=== PATIENT | female | born 1935 | race Caucasian/White ===

== ENCOUNTER 2019-04-28 11:42 | Inpatient (IN) | payer OTHER ==
--- NOTE | 2019-04-28 12:01 | PDOC ---
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 There was nausea but no vomiting. No diaphoresis. Pain persists but is less severe at present. Review of systems: Denies fever/chills, URI symptoms, sore throat, cough, shortness of breath, abdominal pain, vomiting, diarrhea, visual or focal neurologic symptoms. Remainder of systems reviewed and negative Past medical history: Atrial fibrillation, coronary artery disease with stent greater than 10 years ago. Medications include beta tania and calcium channel tania for rate control. 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 However, recently lost her and has been emotionally upset Family history: Mother with [place] in her late 80s. Brother with diabetes. No other cardiac or metabolic diseases, cancer Physical exam: Alert and oriented well-developed well-nourished cooperative. Chest pain of moderate intensity radiating to the right arm Afebrile, vital signs normal except for irregular heart rate of 94/m. PERRLA, fundi benign, ENT clear Neck supple without bruit mass or nodes Chest clear, full breath sounds bilaterally, no wheezes rales or rhonchi CV S1-S2 normal without murmur or gallop pulses full and symmetric no JVD or edema no bruits. Rate 94 and irregularly irregular Abdomen soft nontender without mass or organomegaly. Extremities no CCE Neurological intact Skin clear, no rash, adequate turgor and wet mucous membranes Impression: Chest pain, suspicious for coronary insufficiency. Atrial fibrillation appears to be controlled. Plan: EKG and enzymes, cardiac monitoring and further evaluation depending on results. Past History - Past Medical History Allergies/Adverse Reactions: Allergies Allergy/AdvReac Type Severity Reaction Status Date / Time No Known Allergies Allergy Verified 04/28/19 11:50 Home Medications: Ambulatory Orders Atenolol [Tenormin -] 50 mg PO DAILY 06/01/12 Calcium [Hi-Irvin] 500 mg PO DAILY 02/27/15 Cyanocobalamin [Vitamin B12 -] 100 mcg PO DAILY 02/27/15 Diltiazem HCl [Cartia Xt] 240 mg PO DAILY 10/26/15 Anemia: No Asthma: Yes Cancer: No Cardiac Disorders: Yes (CAD CARDIAC STENT A-FIB) CVA: No COPD: Yes CHF: No Dementia: No Diabetes: No GI Disorders: Yes (GERD) Disorders: Yes (UTI) HTN: Yes Hypercholesterolemia: No Liver Disease: No Seizures: No Thyroid Disease: No - Surgical History Abdominal Surgery: Yes Appendectomy: Yes Cardiac Surgery: Yes (CARDIAC STENTS) Cholecystectomy: No Lung Surgery: No Neurologic Surgery: No Orthopedic Surgery: Yes (BILATERAL SHOULDER ARTHROSCOPIC AND RIGHT KNEE ARTHROSCOPIC SURGERY) - Suicide/Smoking/Psychosocial Hx Smoking Status: No Smoking History: Former smoker Have you smoked in the past 12 months: No Number of Cigarettes Smoked Daily: 0 If you are a former smoker, when did you quit?: 1985 Cigars Per Day: 0 Hx Alcohol Use: Yes Drug/Substance Use Hx: No Substance Use Type: Alcohol Hx Substance Use Treatment: No Cardiac Specific PMH - Complaint Specific PMHX Pacemaker: No *Physical Exam - Vital Signs Last Vital Signs Temp Pulse Resp BP Pulse Ox 98 F 98 H 20 138/87 100 04/28/19 12:26 04/28/19 13:37 04/28/19 13:37 04/28/19 13:37 04/28/19 13:37 ED Treatment Course - LABORATORY CBC & Chemistry Diagram: 04/28/19 12:11 04/28/19 12:11 - ADDITIONAL ORDERS Additional order review: Laboratory Results 04/28/19 04/28/19 04/28/19 12:11 12:05 12:01 PT with INR 15.9 H INR 1.43 H Sodium 138 Potassium 4.1 Chloride 103 Carbon Dioxide 27 Anion Gap 8 BUN 17.0 Creatinine 0.7 Est GFR (CKD-EPI)AfAm 92.86 Est GFR (CKD-EPI)NonAf 80.12 Random Glucose 111 H Calcium 9.6 Total Bilirubin 1.3 H AST 24 ALT 14 Alkaline Phosphatase 47 Creatine Kinase 258 H Creatine Kinase Index 3.6 CK-MB (CK-2) 9.5 H Troponin I 0.65 H* Total Protein 7.1 Albumin 4.4 04/28/19 12:11 RBC 3.98 MCV 98.0 H MCHC 33.0 RDW 13.7 D MPV 8.0 Neutrophils % 64.4 Lymphocytes % 24.3 Monocytes % 10.5 H Eosinophils % 0.0 Basophils % 0.8 - RADIOLOGY Radiology Studies Ordered: Category Date Time Status CHEST X-RAY PORTABLE* [RAD] Stat Radiology 04/28/19 12:02 Completed - Medications Given in the ED: ED Medications Discontinued Medications Generic Name Dose Route Start Last Admin Trade Name Freq PRN Reason Stop Dose Admin Al Hydroxide/Mg Hydroxide 30 ml 04/28/19 12:28 04/28/19 12:33 Mylanta Suspension - PO 04/28/19 12:29 30 ml ONCE ONE Administration Aspirin 162 mg 04/28/19 12:03 04/28/19 12:16 Asa - PO 04/28/19 12:04 162 mg ONCE ONE Administration Clopidogrel Bisulfate 300 mg 04/28/19 13:32 04/28/19 13:37 Plavix - PO 04/28/19 13:33 300 mg ONCE ONE Administration Lorazepam 0.5 mg 04/28/19 13:22 04/28/19 12:52 Ativan - PO 04/28/19 13:23 0.5 mg ONCE ONE Administration Nitroglycerin 0.4 mg 04/28/19 12:02 04/28/19 12:16 Nitrostat - SL 04/28/19 12:03 0.4 mg ONCE ONE Administration Nitroglycerin 0.5 inch 04/28/19 12:29 04/28/19 12:34 Nitro-Bid 2% Paste - TD 04/28/19 12:30 0.5 inch ONCE ONE Administration Medical Decision Making - Medical Decision Making 04/28/19 14:08 EKG: Atrial fibrillation, rate 94/m, occasionally aberrantly conducted beat. Nonspecific ST-T wave changes. No significant change from prior EKG Troponin is 0.65. CK is also elevated. This is most likely I non-STEMI. Dr. Burnett contacted, who is the patient's primary. Admission will be to Dr. Stewart. contacted for cardiology consultation. Patient stabilized with pending transfer to [facility]. Appears clinically and hemodynamically stable, with no significant pain or other symptoms at present. *DC/Admit/Observation/Transfer Diagnosis at time of Disposition: Acute coronary syndrome - Discharge Dispostion Decision to Admit order: Yes Decision to Admit order Date/Time: Decision to Admit Order Category Date Time Status Decision to Admit to Hospital Routine Admission 04/28/19 13:29 Active - Referrals - Patient Instructions - Post Discharge Activity
[2019-04-28] MEDS ORDERED: NITROGLYCERIN SUBLINGUAL 1/150 0.4 MG TAB SL ONE (12:02)
[2019-04-28] MEDS ORDERED: ASPIRIN 81 MG CHEWABLE TABLETS PO ONE (12:03)
[2019-04-28] MEDS ORDERED: NITROGLYCERIN SUBLINGUAL 1/150 0.4 MG TAB ONE (12:13)
[2019-04-28] MEDS ORDERED: ASPIRIN 81 MG CHEWABLE TABLETS ONE (12:14)
[2019-04-28 12:24] LABS: BASO % 0.8 % (0-2.0); HEMOGLOBIN 12.9 GM/dl (10.7-15.3); LYMPH % 24.3 % (8-40); MCH 32.4 pg (25.7-33.7); MONO % 10.5 % (3.8-10.2); NEUT % 64.4 % (42.8-82.8); PLATELET COUNT 307 K/MM3 (134-434); RBC 3.98 M/mm3 (3.60-5.2); RDW 13.7 % (11.6-15.6); WHITE BLOOD COUNT 7.3 K/mm3 (4.0-10.8)
[2019-04-28] MEDS ORDERED: MAG HYDROX/AL HYDROX/SIMETH -MYLANTA- ORAL SUSPENSION PO ONE (12:28)
[2019-04-28] MEDS ORDERED: NITROGLYCERIN 2% OINTMENT - 1GM PACKET TD ONE ×2 (12:29→12:30)
[2019-04-28] MEDS ORDERED: MAG HYDROX/AL HYDROX/SIMETH 30 ML UNIT-DOSE CUP ONE (12:30)
[2019-04-28 12:33] LABS: ALBUMIN 4.4 g/dl (3.4-5.0); BILIRUBIN,TOTAL 1.3 mg/dl (0.2-1); CALCIUM 9.6 mg/dl (8.5-10); CREATININE 0.7 mg/dl (0.55-1.3); POTASSIUM 4.1 mmol/L (3.5-5.1); TOT PROT 7.1 g/dl (6.4-8.2)
[2019-04-28] MEDS ORDERED: LORazepam 0.5 MG TABLET ONE (12:52)
[2019-04-28] MEDS ORDERED: LORazepam 0.5 MG TABLET PO ONE (13:22)
[2019-04-28 13:27] LABS: INR 1.43 (0.82-1.09); PROTHROMBIN TIME (PATIENT) 15.9 SEC (10.2-13.0)
[2019-04-28] MEDS ORDERED: CLOPIDOGREL BISULFATE 300 MG TABLET PO ONE (13:32)
[2019-04-28] MEDS ORDERED: CLOPIDOGREL BISULFATE 300 MG TABLET ONE (13:35)
--- NOTE | 2019-04-28 14:49 | EKG ---
Test Reason : Blood Pressure : / mmHG Vent. Rate : 094 BPM Atrial Rate : 119 BPM P-R Int : 000 ms QRS Dur : 078 ms QT Int : 388 ms P-R-T Axes : 000 051 004 degrees QTc Int : 485 ms ATRIAL FIBRILLATION WITH PREMATURE VENTRICULAR OR ABERRANTLY CONDUCTED COMPLEXES POSSIBLE ANTERIOR INFARCT , AGE UNDETERMINED ABNORMAL ECG NO PREVIOUS ECGS AVAILABLE Confirmed by CHERELLE BEEBE MD ([id number]) on 04/28/2019 2:49:10 PM Referred By: MD JOHN Confirmed By:CHERELLE BEEBE MD
--- NOTE | 2019-04-28 16:52 | CON.CARD ---
Consult Consult Specialty:: Cardiology Referred by:: Dr. Bassett Reason for Consultation:: Afib, chest pain, +trops - History of Present Illness Chief Complaint: Chest pain History of Present Illness: 83 yo female h/o afib with RVR on coumadin per INR, CAD s/p D1 stent 2005, angina pectoris, hyperlipidemia last saw Dr. Conner of [facility] 04/26/2019 presented with NTG-responsive substernal chest pain with radiation to the right arm and back associated with dyspnea and light-headedness while sitting in the [employer] office. She reports nausea w/o emesis, denies palpitations, true syncope, orthopnea, PND or LE edema. Chest discomfort has since abated. Review of systems: Denies fever/chills, URI symptoms, sore throat, cough, shortness of breath, abdominal pain, vomiting, diarrhea, visual or focal neurologic symptoms. Remainder of systems reviewed and negative Past medical history: Atrial fibrillation, coronary artery disease with stent greater than 10 years ago. Medications include beta tania and calcium channel tania for rate control. 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 Brother with diabetes. No other cardiac or metabolic diseases, cancer - History Source History Provided By: Patient Limitations to Obtaining History: No Limitations - Past Medical History Cardio/Vascular: Yes: AFIB, CAD, HTN - Alcohol/Substance Use Hx Alcohol Use: Yes - Smoking History Smoking history: Former smoker Have you smoked in the past 12 months: No Aproximately how many cigarettes per day: 0 If you are a former smoker, when did you quit?: 1984 Home Medications - Allergies Allergies/Adverse Reactions: Allergies Allergy/AdvReac Type Severity Reaction Status Date / Time No Known Allergies Allergy Verified 04/28/19 11:50 - Home Medications Home Medications: Ambulatory Orders Atenolol [Tenormin -] 50 mg PO DAILY 06/01/12 Calcium [Hi-Irvin] 500 mg PO DAILY 02/27/15 Cyanocobalamin [Vitamin B12 -] 100 mcg PO DAILY 02/27/15 Diltiazem HCl [Cartia Xt] 240 mg PO DAILY 10/26/15 Review of Systems - Review of Systems Cardiovascular: reports: Chest Pain Respiratory: reports: SOB Vital Signs: Vital Signs Temperature 98 F 07/10/19 12:26 Pulse Rate 87 04/28/19 15:24 Respiratory Rate 16 04/28/19 15:24 Blood Pressure 122/88 04/28/19 15:24 O2 Sat by Pulse Oximetry (%) 100 04/28/19 15:24 Constitutional: Yes: No Distress, Calm, Thin Neck: Yes: Supple Respiratory: Yes: Regular, CTA Bilaterally, On Nasal O2 Gastrointestinal: Yes: Normal Bowel Sounds, Soft Cardiovascular: Yes: Pulse Irregular JVD: No Carotid Bruit: No Heart Sounds: Yes: S1, S2 Murmur: Yes: Systolic Murmur, Grade 1 Edema: No - Other Data Labs, Other Data: CBC, BMP 04/28/19 12:11 04/28/19 12:11 INR, PTT INR 1.43 (0.82-1.09) H 04/28/19 12:05 Troponin, BNP 04/28/19 12:01 Troponin I 0.65 H* Troponin, BNP 04/28/19 12:01 Troponin I 0.65 H* Afib @ 94 PRWP PVC c/w previous, PVC now seen Echo: Report Reviewed Ejection Fraction %: LVEF > or = 40 % Imaging - Results Chest X-ray: Report Reviewed (NAD) Problem List - Problems (1) Coronary artery disease Code(s): I25.10 - ATHSCL HEART DISEASE OF [place] CORONARY ARTERY W/O ANG PCTRS Qualifiers: Coronary Disease-Associated Artery/Lesion type: [place] artery [place] vs. transplanted heart: [place] heart Associated angina: with unstable angina Qualified Code(s): I25.110 - Atherosclerotic heart disease of [place] coronary artery with unstable angina pectoris (2) S/P coronary artery stent placement Code(s): Z95.5 - PRESENCE OF CORONARY ANGIOPLASTY IMPLANT AND GRAFT (3) Atrial fibrillation Code(s): I48.91 - UNSPECIFIED ATRIAL FIBRILLATION Qualifiers: Atrial fibrillation type: persistent Qualified Code(s): I48.1 - Persistent atrial fibrillation (4) Subtherapeutic anticoagulation Code(s): Z51.81 - ENCOUNTER FOR THERAPEUTIC DRUG LEVEL MONITORING; Z79.01 - MCC (CURRENT) USE OF ANTICOAGULANTS (5) PVC (premature ventricular contraction) Code(s): I49.3 - VENTRICULAR PREMATURE DEPOLARIZATION Assessment/Plan 08/15/2017 Echo: Normal LV and RV size and fxn, mod ARLYN, normal LA size, mild- mod MR, mod TR RVSP 35 mmHg 06/29/12 Lexiscan: Normal MPI, normal LVEF 59% 1. Chest pain suspect [place]/NSTEMI 2. CAD s/p D1 stent 2005 3. Persistent rate-controlled afib on coumadin with subtherapeutic INR 4. PVC P:1. Cycle cardiac enzyme to document peak 2. F/u echo to assess ventricular and valve fxn 3. Continue Atenolol 50 qd, Cartia XT 240 qd, ASA 81 qd, Plavix 75 qd, Lovenox 60 bid, Lipitor 80 qd 4. To discuss with Dr. Sonia Conner of [facility] regarding C to assess severity of CAD, hold coumadin 5. Thank you for consultative opportunity
[2019-04-28 18:52] VITALS: BMI 23.3
[2019-04-28] MEDS: BUDESONIDE/FORMETEROL FUMARATE 80/4.5 mcg INHALER IH SCH (21:47)
[2019-04-28] MEDS: ENOXAPARIN NA (PORCINE) 60 MG/0.6 ML DISP.SYRIN SQ SCH (21:48)
[2019-04-28] MEDS ORDERED: HEPARIN NA (PORCINE) 5,000 UNITS/ML 1ML VIAL SQ SCH (22:00)
[2019-04-28] MEDS ORDERED: PATIENT'S OWN MEDICATION (NON-FORMULARY) (Mesalamine [Lialda] 1.2 GM) PO SCH (22:00)
[2019-04-28] MEDS ORDERED: ATORVASTATIN CA 80 MG TABLET (FP) PO SCH (22:00)
[2019-04-29 07:42] LABS: BASO % 0.8 % (0-2.0); HEMATOCRIT 37.8 % (32.4-45.2); HEMOGLOBIN 12.4 GM/dL (10.7-15.3); LYMPH % 16.1 % (8-40); MCH 31.8 pg (25.7-33.7); MEAN CELL VOLUME 96.5 fl (80-96); MEAN PLT VOLUME 7.7 fl (7.5-11.1); MONO % 11.5 % (3.8-10.2); NEUT % 71.6 % (42.8-82.8); PLATELET COUNT 293 K/MM3 (134-434); RBC 3.91 M/mm3 (3.60-5.2); RDW 14.2 % (11.6-15.6); WHITE BLOOD COUNT 5.5 K/mm3 (4.0-10.0)
[2019-04-29 07:50] VITALS: BP 121/69; PULSE 86; TEMP 97.5
[2019-04-29 07:57] LABS: ALBUMIN 3.8 g/dl (3.4-5.0); BLOOD UREA NITROGEN 10.5 mg/dL (7-18); CALCIUM 9.3 mg/dL (8.5-10.1); CREATININE 0.6 mg/dL (0.55-1.3); POTASSIUM 4.5 mmol/L (3.5-5.1); TOT PROT 6.7 g/dl (6.4-8.2)
--- NOTE | 2019-04-29 08:41 | PN ---
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 - Current Medication List Current Medications: Active Medications Aspirin (Asa -) 81 mg PO DAILY [facility] Atenolol (Tenormin -) 50 mg PO DAILY [facility] Atorvastatin Calcium (Lipitor -) 80 mg PO HS [facility] Last Admin: 04/28/19 21:48 Dose: 80 mg Budesonide/Formoterol Fumarate (Symbicort 80/4.5mcg -) 2 puff IH BID [facility] Last Admin: 04/28/19 21:47 Dose: 2 inh Clopidogrel Bisulfate (Plavix -) 75 mg PO DAILY [facility] Cyanocobalamin (Vitamin B12 -) 100 mcg PO DAILY [facility] Diltiazem HCl (Cardizem Cd -) 240 mg PO HS [facility] Last Admin: 04/28/19 22:46 Dose: 240 mg Enoxaparin Sodium (Lovenox -) 60 mg SQ BID [facility] Last Admin: 04/28/19 21:48 Dose: 60 mg Non-Formulary Medication (Mesalamine [Lialda]) 1.2 gm PO BID [facility] Pantoprazole Sodium (Protonix -) 40 mg PO DAILY [facility] - Objective Vital Signs: Vital Signs Temperature 97.5 F L 04/29/19 06:00 Pulse Rate 86 04/29/19 06:00 Respiratory Rate 18 04/29/19 06:00 Blood Pressure 121/69 04/29/19 06:00 O2 Sat by Pulse Oximetry (%) 99 04/28/19 21:00 Constitutional: Yes: No Distress, Calm, Thin Neck: Yes: Supple Cardiovascular: Yes: Pulse Irregular Respiratory: Yes: Regular, CTA Bilaterally Gastrointestinal: Yes: Normal Bowel Sounds, Soft Edema: No Labs: CBC, BMP 04/29/19 07:00 04/29/19 07:00 INR, PTT INR 1.43 (0.82-1.09) H 04/28/19 12:05 - ....Imaging EKG: Report Reviewed (ECG: Afib @ [address] changes, c/w previous, PVC no longer seen Tele: Afib with occasional aberrant conduction) Problem List - Problems (1) Coronary artery disease Code(s): I25.10 - ATHSCL HEART DISEASE OF [place] CORONARY ARTERY W/O ANG PCTRS Qualifiers: Coronary Disease-Associated Artery/Lesion type: [place] artery [place] vs. transplanted heart: [place] heart Associated angina: with unstable angina Qualified Code(s): I25.110 - Atherosclerotic heart disease of [place] coronary artery with unstable angina pectoris (2) S/P coronary artery stent placement Code(s): Z95.5 - PRESENCE OF CORONARY ANGIOPLASTY IMPLANT AND GRAFT (3) Atrial fibrillation Code(s): I48.91 - UNSPECIFIED ATRIAL FIBRILLATION Qualifiers: Atrial fibrillation type: persistent Qualified Code(s): I48.1 - Persistent atrial fibrillation (4) Subtherapeutic anticoagulation Code(s): Z51.81 - ENCOUNTER FOR THERAPEUTIC DRUG LEVEL MONITORING; Z79.01 - SUBSORTER (CURRENT) USE OF ANTICOAGULANTS (5) PVC (premature ventricular contraction) Code(s): I49.3 - VENTRICULAR PREMATURE DEPOLARIZATION (6) Non-ST elevation ID (NSTEMI) Code(s): I21.4 - NON-ST ELEVATION (NSTEMI) MYOCARDIAL INFARCTION Assessment/Plan 08/15/2017 Echo: Normal LV and RV size and fxn, mod ARLYN, normal LA size, mild- mod MR, mod TR RVSP 35 mmHg 06/29/12 Lexiscan: Normal MPI, normal LVEF 59% 1. CAD s/p D1 stent 2005 now with [place]/NSTEMI 2. Persistent rate-controlled afib on coumadin with subtherapeutic INR 3. PVC P:1. Cardiac enzymes downtrending 2. F/u echo to assess ventricular and valve fxn 3. Continue Atenolol 50 qd, Cartia XT 240 qd, ASA 81 qd, Plavix 75 qd, Lovenox 60 bid, Lipitor 80 qd 4. F/u with Dr. 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 GI protection
[2019-04-29] MEDS ORDERED: ATENOLOL 50 MG TABLET (FP) PO SCH (10:00)
[2019-04-29] MEDS ORDERED: PANTOPRAZOLE 40 MG TABLET (FP) PO SCH (10:00)
[2019-04-29] MEDS ORDERED: CYANOCOBALAMIN (VITAMIN B-12) 100 MCG TABLET PO SCH (10:00)
[2019-04-29] MEDS ORDERED: CLOPIDOGREL BISULFATE 75 MG TABLET (FP) PO SCH (10:00)
[2019-04-29] MEDS ORDERED: ASPIRIN 81 MG CHEWABLE TABLETS PO SCH (10:00)
[2019-04-29] MEDS: ENOXAPARIN NA (PORCINE) 60 MG/0.6 ML DISP.SYRIN SQ SCH (10:09)
[2019-04-29] MEDS: BUDESONIDE/FORMETEROL FUMARATE 80/4.5 mcg INHALER IH SCH (10:10)
--- NOTE | 2019-04-29 11:51 | HP ---
Admitting History and Physical - Admission Chief Complaint: Chest pain History of Present Illness: 83 yo female h/o afib with RVR on coumadin per INR, CAD s/p D1 stent 2005, angina pectoris, hyperlipidemia last saw Dr. Conner of [facility] 04/26/2019 presented with NTG-responsive substernal chest pain with radiation to the right arm and back associated with dyspnea and light-headedness while sitting in the [employer] office. She reports nausea w/o emesis, denies palpitations, true syncope, orthopnea, PND or LE edema. Chest discomfort has since abated. History Source: Patient, Medical Record Limitations to Obtaining History: No Limitations - Past Medical History Cardiovascular: Yes: AFIB, CAD, HTN ...: No - Smoking History Smoking history: Former smoker Have you smoked in the past 12 months: No Aproximately how many cigarettes per day: 0 If you are a former smoker, when did you quit?: 1984 - Alcohol/Substance Use Hx Alcohol Use: No Home Medications - Allergies Allergies/Adverse Reactions: Allergies Allergy/AdvReac Type Severity Reaction Status Date / Time No Known Allergies Allergy Verified 04/28/19 11:50 - Home Medications Home Medications: Ambulatory Orders Atenolol [Tenormin -] 50 mg PO DAILY 06/01/12 Calcium [Hi-Irvin] 500 mg PO DAILY 02/27/15 Cyanocobalamin [Vitamin B12 -] 100 mcg PO DAILY 02/27/15 Diltiazem HCl [Cartia Xt] 240 mg PO DAILY 10/26/15 Review of Systems - Review of Systems Constitutional: reports: Weakness Eyes: reports: No Symptoms HENT: reports: No Symptoms Neck: reports: No Symptoms Cardiovascular: reports: Chest Pain, Shortness of Breath Respiratory: reports: SOB Gastrointestinal: reports: Nausea Genitourinary: reports: No Symptoms Breasts: reports: No Symptoms Reported Musculoskeletal: reports: Muscle Weakness Integumentary: reports: No Symptoms Neurological: reports: No Symptoms Endocrine: reports: No Symptoms Hematology/Lymphatic: reports: No Symptoms Psychiatric: reports: No Symptoms Physical Examination Vital Signs: Vital Signs Temperature 97.5 F L 04/29/19 06:00 Pulse Rate 86 04/29/19 06:00 Respiratory Rate 18 04/29/19 06:00 Blood Pressure 121/69 04/29/19 06:00 O2 Sat by Pulse Oximetry (%) 99 04/28/19 21:00 Labs: CBC, BMP 04/29/19 07:00 04/29/19 07:00 Imaging - Results Chest X-ray: Report Reviewed Problem List - Problems (1) Hyperlipidemia Assessment/Plan: -Atorvastatin 80 mg po HS -LDL goal <70 mg/dl Code(s): E78.5 - HYPERLIPIDEMIA, UNSPECIFIED (2) Acute coronary syndrome Assessment/Plan: -Seen by ardiology -Tele monitor -Trops peaked and now trending down -On BB -Plavix and lovenox Code(s): I24.9 - ACUTE ISCHEMIC HEART DISEASE, UNSPECIFIED (3) Atrial fibrillation Assessment/Plan: -Warfarin on hold for cardiac cath -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
--- NOTE | 2019-04-29 13:58 | ECHO ---
Name: JENN NUNEZ Exam:Adult Echocardiogram Study Date: 04/29/2019 08:17 AM Age: 83 yrs Reason For Study: ATRIAL FIBRILLATION DEMAND ISCHEMIA Height: 62 in Weight: 128 lb BSA: 1.6 m2 MMode/2D Measurements & Calculations IVSd: 0.86 cm Ao root diam: 2.6 cm LVIDd: 4.2 cm LA dimension: 3.5 cm LVIDs: 2.9 cm LVPWd: 0.73 cm EDV(Teich): 77.6 ml LVOT diam: 2.0 cm ESV(Teich): 33.3 ml Doppler Measurements & Calculations MV E max simone: 94.3 cm/sec Ao V2 max: 115.2 cm/sec MV A max simone: 29.1 cm/sec Ao max P.3 mmHg MV E/A: 3.2 Ao V2 mean: 78.7 cm/sec Ao mean P.8 mmHg Ao V2 VTI: 22.2 cm ZAYDA(I,D): 1.6 cm2 ZAYDA(V,D): 1.6 cm2 LV V1 max P.4 mmHg MR max simone: 491.8 cm/sec LV V1 mean P.71 mmHg MR max P.9 mmHg LV V1 max: 59.0 cm/sec LV V1 mean: 39.2 cm/sec LV V1 VTI: 11.9 cm SV(LVOT): 36.3 ml TR max simone: 241.2 cm/sec TR max P.3 mmHg PI end-d simone: 112.0 cm/sec Med Peak E' Simone: 6.5 cm/sec Med E/e': 14.5 Lat Peak E' Simone: 9.3 cm/sec Lat E/e': 10.2 Procedure A complete two-dimensional transthoracic echocardiogram was performed (2D, M-mode, Doppler and color flow Doppler). Left Ventricle The left ventricular size, thickness and function are normal. The left ventricular ejection fraction is normal. Ejection Fraction = 55-60%. The left ventricular wall motion is normal. Right Ventricle The right ventricle is normal in size and function. Atria Normal left and right atrial size and function. Mitral Valve There is mild mitral regurgitation. Tricuspid Valve There is moderate tricuspid regurgitation. Right ventricular systolic pressure is normal. Aortic Valve No hemodynamically significant valvular aortic stenosis. No aortic regurgitation is present. Pulmonic Valve There is no pulmonic valvular regurgitation. Great Vessels The aortic root is normal size. Pericardium/Pleura There is no pericardial effusion. Interpretation Summary The left ventricular size, thickness and function are normal The right ventricle is normal in size and function. There is mild mitral regurgitation. There is moderate tricuspid regurgitation. MD Bharath Phillips 04/29/2019 01:58 PM
--- NOTE | 2019-04-29 17:01 | EKG ---
Test Reason : Blood Pressure : / mmHG Vent. Rate : 088 BPM Atrial Rate : 081 BPM P-R Int : 000 ms QRS Dur : 080 ms QT Int : 378 ms P-R-T Axes : 000 080 -10 degrees QTc Int : 457 ms ATRIAL FIBRILLATION CANNOT RULE OUT ANTERIOR INFARCT (CITED ON OR BEFORE 28-APR-2019) ABNORMAL ECG WHEN COMPARED WITH ECG OF 28-APR-2019 11:54, NONSPECIFIC T WAVE ABNORMALITY, IMPROVED IN LATERAL LEADS Confirmed by YASHIRA ALVARADO MD ([id number]) on 04/29/2019 5:01:32 PM Referred By: Confirmed By:YASHIRA ALVARADO MD
== END 2019-04-29 14:32 | disposition short-term general hospital (02) | DRG 282 ==
LOC: FER 11:42 → J4W 16:48
PROVIDERS: ADMIT Family Medicine; ATTEND Family Medicine
DX: I21.4 Non-ST elevation (NSTEMI) myocardial infarction (principal); I24.9 Acute ischemic heart disease, unspecified; I49.3 Ventricular premature depolarization; I48.91 Unspecified atrial fibrillation; Z79.01 Long term (current) use of anticoagulants; J44.9 Chronic obstructive pulmonary disease, unspecified; I25.110 Atherosclerotic heart disease of native coronary artery with unstable angina pectoris; I10 Essential (primary) hypertension; E78.5 Hyperlipidemia, unspecified; Z95.5 Presence of coronary angioplasty implant and graft; Z87.891 Personal history of nicotine dependence
CPT/HCPCS: 36415; 71045-TC-FY; 80053; 80061; 82550; 82553; 83036; 83721; 83880; 84443; 84484; 85025; 85610; 93005; 93010; 93306-TC; 99284-25

== ENCOUNTER 2019-09-03 11:57 | Emergency (ER) | payer OTHER ==
[2019-09-03 12:03] VITALS: BP 104/66; PULSE 101; TEMP 97.6; BMI 24.1
--- NOTE | 2019-09-03 12:24 | PDOC ---
History of Present Illness - General Chief Complaint: Back Pain Stated Complaint: back pain Time Seen by Provider: 09/03/19 11:59 History Source: Patient Exam Limitations: No Limitations - History of Present Illness Initial Comments: 09/03/19 12:24 Yaz Reynaga is an 84F with PMH chronic lumbar pain 2/2 OA s/p MRI on Tylenol and steroid injections q4-5 weeks last 4 weeks ago, [place] s/p stent 04/29/19 on Coumadin presenting with acute on chronic back pain. Jono has chronic lumbar pain, takes Tylenol 2/2 CAD and advised to not take NSAIDs. Gets steroid injections with every 4 weeks, last 4 weeks ago, next 2 weeks from today. Ambulates with cane with mild difficulty normally. Yesterday had ECHO which was normal, felt fine. Went to bed, had worse back pain, unable to lie supine. Today has new sharp pain higher up on spine, as well as L neck point stiffness. Has difficulty walking 2/2 pain. Denies numbness/tingling, urinary/fecal incontinence. No N/V/C/D. Past History - Past Medical History Allergies/Adverse Reactions: Allergies Allergy/AdvReac Type Severity Reaction Status Date / Time No Known Allergies Allergy Verified 09/03/19 11:59 Home Medications: Ambulatory Orders Calcium [Hi-Rivin] 500 mg PO DAILY 02/27/15 Cyanocobalamin [Vitamin B12 -] 100 mcg PO DAILY 02/27/15 Acetaminophen [Tylenol -] 500 mg PO TID PRN 09/03/19 Acetaminophen [Tylenol] 650 mg PO TID PRN 09/03/19 Ascorbate Calcium [Vitamin C] 500 mg PO BID 09/03/19 Atorvastatin Ca [Lipitor] 20 mg PO HS 09/03/19 Budesonide/Formeterol Fumarate [SYMBICORT 80/4.5mcg -] 2 inh PO BID 09/03/19 Digoxin [Lanoxin -] 0.125 mg PO DAILY 09/03/19 Melatonin 5 mg PO HS 09/03/19 Metoprolol Succinate [Toprol Xl] 200 mg PO HS 09/03/19 Ramipril [Altace] 2.5 mg PO DAILY 09/03/19 Tramadol HCl 50 mg PO BID PRN #12 tablet MDD 2 09/03/19 Warfarin Sodium [Coumadin] 2 mg PO DAILY 09/03/19 Anemia: No Asthma: Yes Cancer: No Cardiac Disorders: Yes (CAD,CARDIAC STENT, A-FIB) CVA: No COPD: Yes CHF: No Dementia: No Diabetes: No GI Disorders: Yes (GERD) Disorders: Yes (UTI) HTN: Yes Hypercholesterolemia: No Liver Disease: No Seizures: No Thyroid Disease: No - Surgical History Abdominal Surgery: Yes Appendectomy: Yes Cardiac Surgery: Yes (CARDIAC STENTS) Cholecystectomy: No Lung Surgery: No Neurologic Surgery: No Orthopedic Surgery: Yes (BILATERAL SHOULDER ARTHROSCOPIC AND RIGHT KNEE ARTHROSCOPIC SURGERY) - Psycho Social/Smoking Cessation Hx Smoking Status: No Smoking History: Never smoked Have you smoked in the past 12 months: No Number of Cigarettes Smoked Daily: 0 If you are a former smoker, when did you quit?: 1985 Cigars Per Day: 0 Hx Alcohol Use: No Drug/Substance Use Hx: No Substance Use Type: None Hx Substance Use Treatment: No Review of Systems - Review of Systems Able to Perform ROS?: Yes Constitutional: No: Symptoms Reported HEENTM: No: Symptoms Reported Respiratory: No: Symptoms reported Cardiac (ROS): No: Symptoms Reported ABD/GI: No: Symptoms Reported : No: Symptoms Reported Musculoskeletal: Yes: Back Pain, Neck Pain. No: Muscle Weakness, Joint Stiffness Integumentary: No: Symptoms Reported Neurological: No: Headache, Numbness, Paresthesia, Weakness, Unsteady Gait, Dizziness Endocrine: No: Symptoms Reported Hematologic/Lymphatic: No: Symptoms Reported All Other Systems: Reviewed and Negative *Physical Exam - Vital Signs Last Vital Signs Temp Pulse Resp BP Pulse Ox 97.6 F 101 H 18 104/66 98 09/03/19 11:58 09/03/19 11:58 09/03/19 11:58 09/03/19 11:58 09/03/19 11:58 - Physical Exam Comments: 09/05/19 18:23 Midline tenderness to lower thoracic/upper lumbar spine, as well as lumbosacral region, no step-offs or deformities, worse pain with movement only No cervical or upper thoracic tenderness Point tenderness to L neck muscles, full ROM, non-tender R side General Appearance: Yes: Nourished, Appropriately Dressed. No: Apparent Distress HEENT: positive: EOMI, JUDSON, Normal Voice, Symmetrical, Pharynx Normal. negative: Photophobia, Scleral Icterus (R), Scleral Icterus (L) Neck: positive: Trachea midline, Normal Thyroid, Supple. negative: Tender, Lymphadenopathy (R), Lymphadenopathy (L) Respiratory/Chest: positive: Lungs Clear, Normal Breath Sounds. negative: Chest Tender, Respiratory Distress, Accessory Muscle Use, Crackles, Rales, Rhonchi, Stridor, Wheezing, Hyperresonant Cardiovascular: positive: Regular Rhythm, Regular Rate. negative: Murmur Gastrointestinal/Abdominal: positive: Normal Bowel Sounds, Flat, Soft. negative : Tender Musculoskeletal: positive: Normal Inspection, Vertebral Tenderness (lumbar and lower T-spine, no deformities), Other (mild anterior scoliosis noted to spine curvature, no external evidence of injury). negative: CVA Tenderness Extremity: positive: Normal Capillary Refill, Normal Inspection, Normal Range of Motion. negative: Tender Integumentary: positive: Normal Color, Dry, Warm Neurologic: positive: cloth finishing range back tender II-XII NML intact, Fully Oriented, Alert, Normal Mood/ Affect, Normal Response, Motor Strength 5/5 (limb muscle groups strong but limited by pain) Medical Decision Making - Medical Decision Making 09/03/19 12:24 Yaz Reynaga is an 84F with PMH chronic lumbar pain 2/2 OA s/p MRI on Tylenol and steroid injections q4-5 weeks last 4 weeks ago, [place] s/p stent 04/29/19 on Coumadin presenting with acute on chronic back pain. Presentation concerning for spinal fracture or other injury such as disc herniation. Will evaluate with XR throacic and lumbar spine to r/o fracture. No notable neurological deficits or urinary symptoms concerning for spinal pathology. XR thoracic and lumbar spine shows no evidence of acute fracture on preliminary read. Other than pain, patient stable to be discharged home. Trial of flexeril and 650mg acetaminophen, no improvement other than neck less sore. Gave 50mg Ultram with mild improvement, patient would like to go home with Ultram to control pain. Ultram sent to pharmacy, patient will follow-up with Dr. Rapp for further evaluation of pain. Discharge - Discharge Information Problems reviewed: Yes Clinical Impression/Diagnosis: Back pain Qualifiers: Back pain location: low back pain Chronicity: chronic Back pain laterality: midline Sciatica presence: without sciatica Qualified Code(s): M54.5 - Low back pain Condition: Fair Disposition: HOME - Additional Discharge Information Prescriptions: Tramadol HCl 50 mg PO BID PRN #12 tablet MDD 2 PRN Reason: Pain - Follow up/Referral Referrals: Melvin Rapp MD [Primary Care Provider] - - Patient Discharge Instructions Patient Printed Discharge Instructions: Managing Chronic Low Back Pain Additional Instructions: Today you were evaluated for new back pain. Your X-rays do not show any evidence of injury or fracture to your spine. Your pain is likely a worsening of the arthritis pain you already have. We tried to give you a medication called Flexeril, which was not effective for your pain. You did not some mild improvement with Ultram, and so we are sending you home with a prescription for this. Do not drive or perform any activities requiring close attention while taking Ultram. Please follow-up with your primary doctor in the next 3 days for further care. If you experience numbness/tingling in your arms or legs, weakness, inability to control your bowels or bladder, or any other new or concerning symptoms, please return to the emergency room. - Post Discharge Activity
--- NOTE | 2019-09-03 12:36 | PDOC ---
Attending Attestation - Resident Resident Name: Medina Spencerur - ED Attending Attestation I have performed the following: I have examined & evaluated the patient, The case was reviewed & discussed with the resident, I agree w/resident's findings & plan, Exceptions are as noted - HPI HPI: 09/03/19 12:43 84y F hx of chronic back pain, OA, CAD sp PCI on coumadin presents with atraumatic acute on chronic back pain since yesterday. She was in her usual state of health yesterday, running errands, was gonig to bed and noticed severe back pain when she tried to lay down. Pt notse the pain seems to be worse when moving, improved with rest. The pain is a bit higher than her chronic back pain , but also endorses pain in the left shoulder/neck region. Denies any urinary or bowel incontinence, fever/chills, numbness/tingling/weakness, abd pain, n/v. pt being managed by steroid injections by pain management and tylenol but is not helping her pain currently. Physicial exam: general: appears uncomfortable when moving around back: mild ttp to L trapezius, no midline cervical tenderness, mild ttp in the mildline/paraspinal region in the lower thoracic region (~T11-12) and upper lumbar region (L2/L3) ext: no pain in the shoulder or liitations of UE b/l suspect musucular pain no red flags will obtain xray to ro vertebral fx/compression fx tylenol and flexeril for pain - Physicial Exam PE: 09/03/19 18:21 see above - Medical Decision Making 09/03/19 15:37 No acute findings on the patient's x-ray will the patient is currently feeling improved will discharge patient to follow-up with PMD we will give the patient Tramadol rx wit precautions
[2019-09-03] MEDS ORDERED: CYCLOBENZAPRINE HCL 10 MG TABLET (FP) PO ONE (12:53)
[2019-09-03] MEDS ORDERED: ACETAMINOPHEN 325 MG TABLET (FP) PO ONE (12:53)
[2019-09-03] MEDS ORDERED: ACETAMINOPHEN 325 MG TABLET (FP) ONE (12:56)
[2019-09-03] MEDS ORDERED: CYCLOBENZAPRINE HCL 10 MG TABLET (FP) ONE (12:56)
[2019-09-03] MEDS ORDERED: traMADol HCL 50 MG TABLET PO ONE (14:29)
[2019-09-03] MEDS ORDERED: traMADol HCL 50 MG TABLET ONE (14:31)
== END 2019-09-03 15:44 | disposition home or self-care (01) ==
LOC: FER 11:57
DX: M54.5 Low back pain (principal); K21.9 Gastro-esophageal reflux disease without esophagitis; I10 Essential (primary) hypertension; J44.9 Chronic obstructive pulmonary disease, unspecified; J45.909 Unspecified asthma, uncomplicated; I25.10 Atherosclerotic heart disease of native coronary artery without angina pectoris; I48.91 Unspecified atrial fibrillation; Z79.01 Long term (current) use of anticoagulants
CPT/HCPCS: 72070-TC-FY; 72100-TC-FY; 99282-25

== ENCOUNTER 2019-10-14 22:35 | Inpatient (IN) | payer OTHER ==
--- NOTE | 2019-10-14 23:03 | PDOC ---
History of Present Illness - General Chief Complaint: Respiratory Stated Complaint: SOB Time Seen by Provider: 10/14/19 22:39 History Source: Patient, Family Exam Limitations: No Limitations - History of Present Illness Initial Comments: 10/14/19 23:00 This is an 84-year-old female brought in by her daughters for evaluation of shortness of breath x2 days. Patient has a productive sounding cough and is noted to be dyspneic with unable to speak full sentences. Patient denies any fevers but states she has not been taking her temperature either. Patient denies any chest pain, nausea, vomiting, diarrhea. Patient does have a history of coronary artery disease and does have a stent. Patient has a history significant for COPD and a [id number] history but stopped about 30 years ago. Patient took her nebulizer treatment approximately 7 PM this evening. Allergies: as per nursing notes Past Medical History: as per HPI Social history: Lives with family. + smoking history. No alcohol. No illicit drugs. Surgical history: None General: No fevers or chills, no weakness, no weight loss HEENT: No change in vision. No sore throat,. No ear pain CardioVascular: no chest discomfort. + shortness of breath Respiratory:+ cough, + wheezing. Gastrointestinal: no nausea, vomiting, diarrhea or constipation, No rectal bleeding Genitourinary: No dysuria, hematuria, or frequency Musculoskeletal: No joint or muscle pain or swelling Neurologic: No headache, vertigo, dizziness or loss of consciousness Psychiatric: nor depression Skin: No rashes or easy bruising Endocrine: no increased thirst or abnormal weight change Allergic: no skin or latex allergy All other systems reviewed and normal Exam: General: Well-nourished well-developed individual, no acute distress HEENT: Throat: Normal, tonsils normal, no erythema or exudate Neck: Supple, no meningeal signs, no lymphadenopathy Eyes::Pupils equal reactive and round, extraocular motion intact Chest: Nontender to palpation Cardiac: S1-S2 normal, regular rate and rhythm, no murmurs rubs or gallops Respiratory: Lungs decreased breath sounds bilateral with Expiratory wheezing throughout with some use of accessory muscles Abdomen: Soft, nondistended, normal bowel sounds, there is no tenderness on palpation diffusely Extremities: Warm, dry, no cyanosis, clubbing, or edema Skin: No rashes Neuro: Alert and oriented x3, CN II - XII intact, nonfocal exam with normal strength, normal sensation, normal reflexes, normal gait, Psych: Normal mood and affect 10/14/19 23:48 10/15/19 00:02 Assessment and plan: This is an 84-year-old female with COPD exacerbation. Patient given DuoNeb prednisone and an EKG was done however the EKG shows some ST depressions V4 through V6 as well as atrial fibrillation. Did not want to continue to give additional DuoNeb's as these ST depressions are new from prior EKG of April of this year. Patient's troponin was 0.03 Patient does have a mildly elevated white count of 12.2 and a productive sounding cough. However her chest x-ray does not indicate any infiltrate but given her symptoms I will cover her with antibiotics and give her first dose of ceftriaxone Patient will be admitted to an inpatient bed for bronchitis and COPD exacerbation rule out cardiac ischemia Chest x-ray shows COPD but no acute pathology EKG shows atrial fibrillation at a rate of [address] depression with flipped T's V4, 5 and 6. The lateral changes are new from prior EKG of April 2019. Most likely secondary to her difficulty breathing. Past History - Past Medical History Allergies/Adverse Reactions: Allergies Allergy/AdvReac Type Severity Reaction Status Date / Time No Known Allergies Allergy Verified 09/03/19 11:59 Home Medications: Ambulatory Orders Calcium [Hi-Irvin] 500 mg PO DAILY 02/27/15 Cyanocobalamin [Vitamin B12 -] 100 mcg PO DAILY 02/27/15 Acetaminophen [Tylenol] 650 mg PO TID PRN 09/03/19 Ascorbate Calcium [Vitamin C] 500 mg PO BID 09/03/19 Atorvastatin Ca [Lipitor] 20 mg PO HS 09/03/19 Digoxin [Lanoxin -] 0.125 mg PO DAILY 09/03/19 Melatonin 5 mg PO HS 09/03/19 Metoprolol Succinate [Toprol Xl] 200 mg PO HS 09/03/19 Ramipril [Altace] 2.5 mg PO DAILY 09/03/19 Warfarin Sodium [Coumadin] 2 mg PO DAILY 09/03/19 Anemia: No Asthma: Yes Cancer: No Cardiac Disorders: Yes (CAD,CARDIAC STENT, A-FIB) CVA: No COPD: Yes CHF: No Dementia: No Diabetes: No GI Disorders: Yes (GERD) Disorders: Yes (UTI) HTN: Yes Hypercholesterolemia: No Liver Disease: No Seizures: No Thyroid Disease: No - Surgical History Abdominal Surgery: Yes Appendectomy: Yes Cardiac Surgery: Yes (CARDIAC STENTS) Cholecystectomy: No Lung Surgery: No Neurologic Surgery: No Orthopedic Surgery: Yes (BILATERAL SHOULDER ARTHROSCOPIC AND RIGHT KNEE ARTHROSCOPIC SURGERY) - Psycho Social/Smoking Cessation Hx Smoking Status: No Smoking History: Unknown if ever smoked Have you smoked in the past 12 months: No Number of Cigarettes Smoked Daily: 0 If you are a former smoker, when did you quit?: 1985 Cigars Per Day: 0 Information on smoking cessation initiated: No Hx Alcohol Use: No Drug/Substance Use Hx: No Substance Use Type: None Hx Substance Use Treatment: No *Physical Exam - Vital Signs Last Vital Signs Temp Pulse Resp BP Pulse Ox 99.2 F 122 H 18 138/86 93 L 10/14/19 22:54 10/14/19 22:54 10/14/19 22:54 10/14/19 22:54 10/14/19 22:54 ED Treatment Course - LABORATORY CBC & Chemistry Diagram: 10/14/19 23:10 10/14/19 23:10 - RADIOLOGY Radiology Studies Ordered: Category Date Time Status CHEST X-RAY PORTABLE* [RAD] Stat Radiology 10/14/19 22:44 Ordered Discharge - Discharge Information Problems reviewed: Yes Clinical Impression/Diagnosis: COPD exacerbation, Atrial fibrillation, Bronchitis Condition: Stable - Admission Yes - Follow up/Referral Referrals: Melvin Rapp MD [Primary Care Provider] - - Patient Discharge Instructions - Post Discharge Activity
[2019-10-14] MEDS ORDERED: ALBUTEROL SO4 2.5/IPRATROPIUM 0.5 INH SOL 3 ML VIAL.NEB. NEB ONE ×2 (23:14→23:27)
[2019-10-14 23:20] LABS: BASO % 3.6 % (0-2.0); HEMATOCRIT 40.8 % (32.4-45.2); HEMOGLOBIN 13.4 GM/dl (10.7-15.3); MCH 32.3 pg (25.7-33.7); MCHC 32.8 g/dl (32.0-36.0); MEAN CELL VOLUME 98.5 fl (80-96); MEAN PLT VOLUME 7.8 fl (7.5-11.1); MONO % 11.9 % (3.8-10.2); NEUT % 78.5 % (42.8-82.8); PLATELET COUNT 301 K/MM3 (134-434); RBC 4.14 M/mm3 (3.60-5.2); RDW 13.3 % (11.6-15.6); WHITE BLOOD COUNT 12.2 K/mm3 (4.0-10.8)
[2019-10-14] MEDS ORDERED: predniSONE 20 MG TABLET (UD) PO ONE (23:28)
[2019-10-14] MEDS ORDERED: predniSONE 20 MG TABLET (UD) ONE (23:30)
[2019-10-14 23:31] LABS: INR 1.45 (0.82-1.09); PROTHROMBIN TIME (PATIENT) 16.1 SEC (10.2-13.0)
[2019-10-14 23:52] LABS: ALBUMIN 4.1 g/dl (3.4-5.0); BILIRUBIN,TOTAL 1.2 mg/dl (0.2-1); CALCIUM 9.5 mg/dl (8.5-10); CREATININE 0.7 mg/dl (0.55-1.3); POTASSIUM 4.1 mmol/L (3.5-5.1); TOT PROT 7.1 g/dl (6.4-8.2)
[2019-10-15] MEDS ORDERED: ALBUTEROL SO4 0.083% IH SOL 2.5 MG/3 ML VIAL.NEB. NEB PRN (00:43)
[2019-10-15] MEDS ORDERED: ENOXAPARIN NA (PORCINE) 30 MG/0.3 ML DISP.SYRIN SQ SCH (00:45)
[2019-10-15] MEDS ORDERED: CEFTRIAXONE 1,000 MG in DEXTROSE 5%-WATER - 50 ML IVPB STA (00:46)
[2019-10-15] MEDS ORDERED: cefTRIAXone SODIUM 1 GM VIAL ONE (00:50)
[2019-10-15] MEDS ORDERED: ENOXAPARIN NA (PORCINE) 30 MG/0.3 ML DISP.SYRIN SQ ONE (00:50)
[2019-10-15 02:06] VITALS: BMI 22.8
[2019-10-15 08:25] LABS: HEMATOCRIT 40.4 % (32.4-45.2); HEMOGLOBIN 13.3 GM/dl (10.7-15.3); MCH 32.2 pg (25.7-33.7); MCHC 32.9 g/dl (32.0-36.0); MEAN CELL VOLUME 97.8 fl (80-96); MEAN PLT VOLUME 8.8 fl (7.5-11.1); PLATELET COUNT 292 K/MM3 (134-434); RBC 4.13 M/mm3 (3.60-5.2); RDW 13.4 % (11.6-15.6); WHITE BLOOD COUNT 11.3 K/mm3 (4.0-10.8)
[2019-10-15 08:31] LABS: CALCIUM 9.5 mg/dl (8.5-10); CREATININE 0.6 mg/dl (0.55-1.3); POTASSIUM 4.4 mmol/L (3.5-5.1)
--- NOTE | 2019-10-15 09:24 | HP ---
CHIEF COMPLAINT: Shortness of Breath PCP: HISTORY OF PRESENT ILLNESS: This is an 84-year-old h/o afib with RVR on coumadin per INR, CAD s/p D1 stent 2005, angina pectoris, hyperlipidemiafemale brought in by her daughters for evaluation of shortness of breath x2 days. Patient has a productive sounding cough and is noted to be dyspneic with unable to speak full sentences. Patient denies any fevers but states she has not been taking her temperature either. Patient denies any chest pain, nausea, vomiting, diarrhea. Patient does have a history of coronary artery disease and does have a stent. Patient has a history significant for COPD but stopped about 30 years ago. Patient took her nebulizer treatment approximately 7 PM. Stitcher Utility: Dr. Yamilka Conner [phone] Opera Singer: Dr. Rapp ER course was notable for: (1) Chest x-ray shows COPD but no acute pathology (2) EKG shows atrial fibrillation (3)Trop <0.03 Recent Travel: Denies PAST MEDICAL HISTORY: OA AFib GERD Chronic Back Pain PAST SURGICAL HISTORY: Shoulder Scope x2 Right total knee replacement Appendectomy Catactact x2 Social History: Smoking: Pack a day for 37 years. Quit in 1984 Alcohol: 1 drink a night with her sister Drugs: Denies Allergies No Known Allergies Allergy (Verified 09/03/19 11:59) HOME MEDICATIONS: Home Medications Medication Instructions Recorded Calcium [Hi-Irvin] 500 mg PO DAILY 02/27/15 Cyanocobalamin [Vitamin B12 -] 100 mcg PO DAILY 02/27/15 Acetaminophen [Tylenol] 650 mg PO TID PRN 09/03/19 Ascorbate Calcium [Vitamin C] 500 mg PO BID 09/03/19 Atorvastatin Ca [Lipitor] 20 mg PO HS 09/03/19 Digoxin [Lanoxin -] 0.125 mg PO DAILY 09/03/19 Melatonin 5 mg PO HS 09/03/19 Metoprolol Succinate [Toprol Xl] 200 mg PO HS 09/03/19 Ramipril [Altace] 2.5 mg PO DAILY 09/03/19 Warfarin Sodium [Coumadin] 2 mg PO DAILY 09/03/19 REVIEW OF SYSTEMS CONSTITUTIONAL: Absent: fever, chills, diaphoresis, generalized weakness, malaise, weight change HEENT: Absent: rhinorrhea, nasal congestion, throat pain, throat swelling, difficulty swallowing, mouth swelling, ear pain, eye pain, visual changes CARDIOVASCULAR: irregular heart rate Absent: chest pain, syncope, palpitations, lightheadedness, peripheral edema RESPIRATORY: shortness of breath, Productive cough Absent: , orthopnea, wheezing, stridor, hemoptysis GASTROINTESTINAL: Absent: abdominal pain, abdominal distension, nausea, vomiting, diarrhea, constipation, melena, hematochezia GENITOURINARY: Absent: dysuria, frequency, urgency, hesitancy, hematuria, flank pain, genital pain MUSCULOSKELETAL: Chronic back pain Absent: myalgia, arthralgia, joint swelling, neck pain SKIN: Absent: rash, itching, pallor HEMATOLOGIC/IMMUNOLOGIC: Absent: easy bleeding, easy bruising, lymphadenopathy, frequent infections ENDOCRINE: Absent: unexplained weight gain, unexplained weight loss, heat intolerance, cold intolerance NEUROLOGIC: Absent: headache, focal weakness or paresthesias, dizziness, unsteady gait, seizure, mental status changes, bladder or bowel incontinence PSYCHIATRIC: Absent: anxiety, depression, suicidal or homicidal ideation, hallucinations. PHYSICAL EXAMINATION Vital Signs - 24 hr 10/14/19 10/14/19 10/14/19 22:36 22:54 23:50 Temperature 99.2 F Pulse Rate 122 H Pulse Rate [ 110 H Radial] Respiratory 18 Rate Blood Pressure 138/86 138/86 O2 Sat by Pulse 93 L 98 Oximetry (%) 10/15/19 10/15/19 10/15/19 01:55 02:16 06:00 Temperature 98.8 F 98.8 F 98.2 F Pulse Rate 120 H 120 H 114 H Pulse Rate [ Radial] Respiratory 18 18 20 Rate Blood Pressure 127/65 127/65 135/83 O2 Sat by Pulse 97 95 Oximetry (%) 10/15/19 07:51 Temperature Pulse Rate Pulse Rate [ Radial] Respiratory 16 Rate Blood Pressure O2 Sat by Pulse 96 Oximetry (%) GENERAL: Awake, alert, and fully oriented, in no acute distress. HEAD: Normal with no signs of trauma. EYES: Pupils equal, round and reactive to light, extraocular movements intact, sclera anicteric, conjunctiva clear. No lid lag. EARS, NOSE, THROAT: Ears normal, nares patent, oropharynx clear without exudates. Moist mucous membranes. NECK: Normal range of motion, supple without lymphadenopathy, JVD, or masses. LUNGS: Breath sounds equal, clear to auscultation bilaterally. No wheezes, and no crackles. No accessory muscle use. HEART: Irregular Rhythm, S1 and S2 ABDOMEN: Soft, nontender, not distended, normoactive bowel sounds, no guarding, no rebound, no masses. No hepatomegaly or splenomegaly. MUSCULOSKELETAL: Normal range of motion at all joints. No bony deformities or tenderness. No CVA tenderness. UPPER EXTREMITIES: 2+ pulses, warm, well-perfused. No cyanosis. No clubbing. No peripheral edema. LOWER EXTREMITIES: 2+ pulses, warm, well-perfused. No calf tenderness. Mild bilateral peripheral edema. NEUROLOGICAL: Cranial nerves II-XII intact. Normal speech. Gait not accessed PSYCHIATRIC: Cooperative. Good eye contact. Appropriate mood and affect. SKIN: Warm, dry, normal turgor, no rashes or lesions noted, normal capillary refill. Laboratory Results - last 24 hr 10/14/19 10/14/19 10/14/19 23:10 23:10 23:10 WBC 12.2 H RBC 4.14 Hgb 13.4 Hct 40.8 MCV 98.5 H MCH 32.3 MCHC 32.8 RDW 13.3 Plt Count 301 MPV 7.8 Absolute Neuts (auto) 9.6 Neutrophils % 78.5 Lymphocytes % 6.0 L Monocytes % 11.9 H Eosinophils % 0.0 Basophils % 3.6 H PT with INR INR Sodium Potassium Chloride Carbon Dioxide Anion Gap BUN Creatinine Est GFR (CKD-EPI)AfAm Est GFR (CKD-EPI)NonAf Random Glucose Lactic Acid Calcium Total Bilirubin AST ALT Alkaline Phosphatase Creatine Kinase 190 Creatine Kinase Index No Result Required. CK-MB (CK-2) 0.8 Troponin I < 0.03 Total Protein Albumin 10/14/19 10/14/19 10/14/19 23:10 23:10 23:10 WBC RBC Hgb Hct MCV MCH MCHC RDW Plt Count MPV Absolute Neuts (auto) Neutrophils % Lymphocytes % Monocytes % Eosinophils % Basophils % PT with INR 16.1 H INR 1.45 H Sodium 136 Potassium 4.1 Chloride 100 Carbon Dioxide 26 Anion Gap 10 BUN 14.0 Creatinine 0.7 Est GFR (CKD-EPI)AfAm 92.21 Est GFR (CKD-EPI)NonAf 79.56 Random Glucose 175 H Lactic Acid 1.5 Calcium 9.5 Total Bilirubin 1.2 H AST 18 ALT 15 Alkaline Phosphatase 47 Creatine Kinase Creatine Kinase Index CK-MB (CK-2) Troponin I Total Protein 7.1 Albumin 4.1 10/15/19 10/15/19 07:20 07:20 WBC 11.3 H RBC 4.13 Hgb 13.3 Hct 40.4 MCV 97.8 H MCH 32.2 MCHC 32.9 RDW 13.4 Plt Count 292 MPV 8.8 Absolute Neuts (auto) Neutrophils % Lymphocytes % Monocytes % Eosinophils % Basophils % PT with INR INR Sodium 141 Potassium 4.4 Chloride 101 Carbon Dioxide 28 Anion Gap 12 BUN 12.0 Creatinine 0.6 Est GFR (CKD-EPI)AfAm 97.01 Est GFR (CKD-EPI)NonAf 83.70 Random Glucose 164 H Lactic Acid Calcium 9.5 Total Bilirubin AST ALT Alkaline Phosphatase Creatine Kinase Creatine Kinase Index CK-MB (CK-2) Troponin I Total Protein Albumin ASSESSMENT/PLAN: This is an 84-year-old h/o COPD, afib with RVR on coumadin per INR, CAD s/p D1 stent 2005, angina pectoris, GERD, hyperlipidemia female brought in by her daughters for evaluation of shortness of breath x2 days, admitted and being treated for COPD Exacerbation. COPD exacerbation --Chest x-ray COPD but no acute pathology --EKG atrial fibrillation at a rate of [address] depression with flipped T's V4, 5 and 6. The lateral changes are new from prior EKG of April 2019. Most likely secondary to her difficulty breathing --WBC 12.2 (afebrile) --2LNC PRN --Abx-Cetriaxone --Duonebs --Cont Spiriva, Symbicort, Albuterol --Hold on systemic steroids per Pulmonary --Pulmonary Following- Hortencia Atrial fibrillation --On warfarin INR 1.45 Will treat with lovenox 60mg q12 hour and increase Warfarin dose tonight from 2mg to 5mg once and recheck labs in AM. Dose Coumadin daily unitl therapeutic levels are reached --Cont Digoxin 0.125mg PO daily HTN/CAD/HLD --Metoprolol Succ 200mg PO HS --Ramipril 2.5mg PO daily GERD --Protonix 40mg PO Daily --Atorvastatin 20mg PO HS FEN --PO intake --Replenish PRN --Low Sodium diet DVT Prophylaxis --On Lovenox and Warfarin Dispo --Requires inpatient care Visit type - Emergency Visit Emergency Visit: Yes ED Registration Date: 10/15/19 Care time: The patient presented to the Emergency Department on the above date and was hospitalized for further evaluation of their emergent condition. - New Patient This patient is new to me today: Yes Date on this admission: 10/15/19 - Critical Care Critical Care patient: No
[2019-10-15 09:58] LABS: ALBUMIN 3.7 g/dl (3.4-5.0); BILIRUBIN,DIRECT 0.2 mg/dL (0.0-0.2); TOT PROT 6.8 g/dl (6.4-8.2)
[2019-10-15] MEDS ORDERED: PATIENT'S OWN MEDICATION (NON-FORMULARY) (Mesalamine [Lialda] 1.2 GM) PO SCH (10:00)
[2019-10-15] MEDS ORDERED: PATIENT'S OWN MEDICATION (NON-FORMULARY) (Tiotropium Bromide [Spiriva] 18 MCG) IH SCH (10:00)
[2019-10-15] MEDS ORDERED: CALCIUM 500 MG PO SCH (10:00)
[2019-10-15] MEDS: RAMIPRIL 2.5 MG CAPSULE (FP) PO SCH (10:31)
[2019-10-15] MEDS: DIGOXIN 0.125 MG TABLET (FP) PO SCH (10:31)
[2019-10-15] MEDS: ASCORBIC ACID 500 MG TABLET (FP) PO SCH ×2 (10:31→21:20)
[2019-10-15] MEDS: CALCIUM (OYSTER SHELL) 500 MG TABLET (FP) PO SCH (10:36)
[2019-10-15] MEDS: PANTOPRAZOLE 40 MG TABLET (FP) PO SCH (10:36)
[2019-10-15] MEDS: CYANOCOBALAMIN (VITAMIN B-12) 100 MCG TABLET PO SCH (10:37)
[2019-10-15] MEDS: BUDESONIDE/FORMETEROL FUMARATE 80/4.5 mcg INHALER IH SCH ×2 (10:37→21:21)
[2019-10-15] MEDS: TIOTROPIUM BROMIDE 2.5 MCG (SPIRIVA) RESPIMAT INHALER IH SCH (10:37)
[2019-10-15] MEDS ORDERED: PT OWN MED DRAWER 7, Y5N ONE (10:43)
--- NOTE | 2019-10-15 10:54 | CON.PULM ---
Consult Consult Specialty:: PULMONARY Referred by:: DYANA Reason for Consultation:: SOB - History of Present Illness Chief Complaint: COUGH/SPUTUM/SOB History of Present Illness: This is an 84-year-old female brought in by her daughters for evaluation of shortness of breath x2 days. Patient has a productive sounding cough and is noted to be dyspneic and unable to speak full sentences. Patient denies any fevers. Patient denies any chest pain, nausea, vomiting, diarrhea. Patient does have a history of coronary artery disease and does have a stent. Patient has a history significant for COPD and a [id number]-[id number] history but stopped about 30 years ago. Patient took her nebulizer treatment approximately 7 PM this evening. She has a cough productive of green thick sputum. - History Source History Provided By: Patient, Medical Record Limitations to Obtaining History: No Limitations - Past Medical History ARC WELDER: No: Alzheimer's Cardio/Vascular: Yes: AFIB, CAD, HTN Pulmonary: Yes: COPD. No: O2 Dependent Gastrointestinal: No: Ascites Hepatobiliary: No: Cirrhosis Renal/: No: Renal Failure Reproductive: Yes: Postmenopausal ...: No - Alcohol/Substance Use Hx Alcohol Use: No - Smoking History Smoking history: Never smoked Have you smoked in the past 12 months: No Aproximately how many cigarettes per day: 0 If you are a former smoker, when did you quit?: 1984 Home Medications - Allergies Allergies/Adverse Reactions: Allergies Allergy/AdvReac Type Severity Reaction Status Date / Time No Known Allergies Allergy Verified 09/03/19 11:59 - Home Medications Home Medications: Ambulatory Orders Calcium [Hi-Irvin] 500 mg PO DAILY 02/27/15 Cyanocobalamin [Vitamin B12 -] 100 mcg PO DAILY 02/27/15 Acetaminophen [Tylenol] 650 mg PO TID PRN 09/03/19 Ascorbate Calcium [Vitamin C] 500 mg PO BID 09/03/19 Atorvastatin Ca [Lipitor] 20 mg PO HS 09/03/19 Digoxin [Lanoxin -] 0.125 mg PO DAILY 09/03/19 Melatonin 5 mg PO HS 09/03/19 Metoprolol Succinate [Toprol Xl] 200 mg PO HS 09/03/19 Ramipril [Altace] 2.5 mg PO DAILY 09/03/19 Warfarin Sodium [Coumadin] 2 mg PO DAILY 09/03/19 Family Medical History Family History: Unremarkable Review of Systems - Review of Systems Constitutional: reports: Loss of Appetite. denies: Fever HENT: denies: Ear Discharge Neck: denies: Lumps Cardiovascular: denies: Chest Pain Respiratory: reports: Cough, Exercise Intolerance, SOB, SOB on Exertion, Wheezing. denies: Hemoptysis Gastrointestinal: reports: No Symptoms Genitourinary: reports: No Symptoms Physical Exam Vital Sings: Vital Signs Temperature 98.2 F 10/15/19 06:00 Pulse Rate 75 10/15/19 10:31 Respiratory Rate 16 10/15/19 07:51 Blood Pressure 135/83 10/15/19 06:00 O2 Sat by Pulse Oximetry (%) 96 10/15/19 07:51 Constitutional: Yes: Calm Eyes: Yes: EOM Intact HENT: Yes: Normocephalic Neck: Yes: Trachea Midline Cardiovascular: Yes: Tachycardia, Pulse Irregular, S1, S2 Respiratory: Yes: Diminished Gastrointestinal: Yes: Normal Bowel Sounds Edema: No Labs: CBC, BMP 10/15/19 07:20 10/15/19 07:20 Imaging - Results Chest X-ray: Report Reviewed, Image Reviewed Problem List - Problems (1) Acute bronchitis Code(s): J20.9 - ACUTE BRONCHITIS, UNSPECIFIED (2) Atrial fibrillation Code(s): I48.91 - UNSPECIFIED ATRIAL FIBRILLATION Qualifiers: (3) COPD exacerbation Code(s): J44.1 - CHRONIC OBSTRUCTIVE PULMONARY DISEASE W (ACUTE) EXACERBATION (4) Coronary artery disease Code(s): I25.10 - ATHSCL HEART DISEASE OF [place] CORONARY ARTERY W/O ANG PCTRS Qualifiers: Coronary Disease-Associated Artery/Lesion type: [place] artery [place] vs. transplanted heart: [place] heart Associated angina: with unstable angina Qualified Code(s): I25.110 - Atherosclerotic heart disease of [place] coronary artery with unstable angina pectoris (5) Hyperlipidemia Code(s): E78.5 - HYPERLIPIDEMIA, UNSPECIFIED Assessment/Plan CHEST PT/O2/BRONCHODILATORS/IV ANTIBIOTICS SPUTUM C/S, INFLU SCREENING ANTICOAGULATION/CONTINUE HOME MEDS HOLD SYSTEMIC STEROIDS FOR NOW Krystyna BERKOWITZ MD
--- NOTE | 2019-10-15 13:35 | EKG ---
Test Reason : Blood Pressure : / mmHG Vent. Rate : 118 BPM Atrial Rate : 147 BPM P-R Int : 000 ms QRS Dur : 076 ms QT Int : 312 ms P-R-T Axes : 000 064 241 degrees QTc Int : 437 ms ATRIAL FIBRILLATION WITH RAPID VENTRICULAR RESPONSE INCOMPLETE RBBB Confirmed by EFFIE NORRIS MD ([id number]) on 10/15/2019 1:35:17 PM Referred By: SHARONDA SOUSA Confirmed By:EFFIE NORRIS MD
[2019-10-15] MEDS: ENOXAPARIN NA (PORCINE) 60 MG/0.6 ML DISP.SYRIN SQ SCH (16:44)
[2019-10-15] MEDS ORDERED: WARFARIN NA 5 MG TABLET (UD) PO ONE (18:00)
[2019-10-15] MEDS ORDERED: WARFARIN NA 2 MG TABLET (UD) PO SCH (18:00)
[2019-10-15] MEDS: ATORVASTATIN CA 20 MG TABLET (FP) PO SCH (21:20)
[2019-10-15] MEDS: MELATONIN 5 MG TABLETS PO SCH (21:21)
[2019-10-16] MEDS: ENOXAPARIN NA (PORCINE) 60 MG/0.6 ML DISP.SYRIN SQ SCH ×2 (03:50→14:15)
--- NOTE | 2019-10-16 07:41 | PN ---
Progress Note, Physician History of Present Illness: pulmonary alert,feeling better,less congested,less dyspneic - Current Medication List Current Medications: Active Medications Albuterol Sulfate (Ventolin 0.083% Nebulizer Soln -) 1 amp NEB Q6H PRN PRN Reason: SHORT OF BREATH/WHEEZING Ascorbic Acid (Vitamin C -) 500 mg PO BID [facility] Last Admin: 10/15/19 21:20 Dose: 500 mg Atorvastatin Calcium (Lipitor -) 20 mg PO HS [facility] Last Admin: 10/15/19 21:20 Dose: 20 mg Budesonide/Formoterol Fumarate (Symbicort 80/4.5mcg -) 2 puff IH BID [facility] Last Admin: 10/15/19 21:21 Dose: 2 puff Calcium Carbonate (Os-Irvin 500mg -) 500 mg PO DAILY [facility] Last Admin: 10/15/19 10:36 Dose: 500 mg Cyanocobalamin (Vitamin B12 -) 100 mcg PO DAILY [facility] Last Admin: 10/15/19 10:37 Dose: 100 mcg Digoxin (Lanoxin -) 0.125 mg PO DAILY [facility] Last Admin: 10/15/19 10:31 Dose: 0.125 mg Enoxaparin Sodium (Lovenox -) 60 mg SQ Q12H [facility] Last Admin: 10/16/19 03:50 Dose: 60 mg Melatonin (Melatonin) 5 mg PO HS [facility] Last Admin: 10/15/19 21:21 Dose: 5 mg Metoprolol Succinate (Toprol Xl -) 200 mg PO HS [facility] Last Admin: 10/15/19 21:21 Dose: 200 mg Non-Formulary Medication (Mesalamine [Lialda]) 1.2 gm PO BID [facility] Pantoprazole Sodium (Protonix -) 40 mg PO DAILY [facility] Last Admin: 10/15/19 10:36 Dose: 40 mg Ramipril (Altace -) 2.5 mg PO DAILY [facility] Last Admin: 10/15/19 10:31 Dose: 2.5 mg Tiotropium [place] (Spiriva Respimat) 2 puff IH DAILY [facility] Last Admin: 10/15/19 10:37 Dose: Not Given - Objective Vital Signs: Vital Signs Temperature 98.1 F 10/16/19 06:00 Pulse Rate 73 10/16/19 06:00 Respiratory Rate 18 10/16/19 06:00 Blood Pressure 115/62 10/16/19 06:00 O2 Sat by Pulse Oximetry (%) 99 10/16/19 06:00 Constitutional: Yes: Well Nourished, Calm Eyes: Yes: WNL HENT: Yes: WNL Neck: Yes: WNL Cardiovascular: Yes: Pulse Irregular, S1, S2 Respiratory: Yes: Rhonchi (scattered hilary rhonchi) Gastrointestinal: Yes: Normal Bowel Sounds, Soft Extremities: Yes: WNL Edema: No Labs: CBC, BMP Assessment/Plan Problem List - Problems (1) Acute bronchitis Code(s): J20.9 - ACUTE BRONCHITIS, UNSPECIFIED (2) Atrial fibrillation Code(s): I48.91 - UNSPECIFIED ATRIAL FIBRILLATION Qualifiers: (3) COPD exacerbation Code(s): J44.1 - CHRONIC OBSTRUCTIVE PULMONARY DISEASE W (ACUTE) EXACERBATION (4) Coronary artery disease Code(s): I25.10 - ATHSCL HEART DISEASE OF [place] CORONARY ARTERY W/O ANG PCTRS Qualifiers: Coronary Disease-Associated Artery/Lesion type: [place] artery [place] vs. transplanted heart: [place] heart Associated angina: with unstable angina Qualified Code(s): I25.110 - Atherosclerotic heart disease of [place] coronary artery with unstable angina pectoris (5) Hyperlipidemia Code(s): E78.5 - HYPERLIPIDEMIA, UNSPECIFIED Assessment/Plan CHEST PT O2 INHALED BRONCHODILATORS IV ANTIBIOTICS ANTICOAGULATION DR GARCÍA
[2019-10-16 09:02] LABS: INR 1.4 (0.82-1.09); PROTHROMBIN TIME (PATIENT) 15.6 SEC (10.2-13.0)
[2019-10-16 09:05] LABS: ALBUMIN 3.3 g/dl (3.4-5.0); BILIRUBIN,TOTAL 0.9 mg/dl (0.2-1); CALCIUM 9.1 mg/dl (8.5-10); CREATININE 0.6 mg/dl (0.55-1.3); MAGNESIUM 1.6 mg/dL (1.8-2.4); POTASSIUM 3.9 mmol/L (3.5-5.1); TOT PROT 6.2 g/dl (6.4-8.2)
--- NOTE | 2019-10-16 09:41 | PN ---
Physical Exam: SUBJECTIVE: Patient seen and examined at bedside, reports feeling better, coughing out yellow sputum. denies cp, sob, palpitations, abdominal pain, N/V/D or urinary symptoms. OBJECTIVE: Vital Signs Period Temp Pulse Resp BP Sys/[place] Pulse Ox Last 24 Hr 97.5 F-98.9 F 73-115 17-20 103-115/49-62 94-99 GENERAL: The patient is awake, alert, and fully oriented, in no acute distress. HEAD: Normal with no signs of trauma. EYES: PERRL, extraocular movements intact, sclera anicteric, conjunctiva clear. No ptosis. ENT: Ears normal, nares patent, oropharynx clear without exudates, moist mucous membranes. NECK: Trachea midline, full range of motion, supple. LUNGS: Breath sounds equal, clear to auscultation bilaterally, no wheezes, no crackles, no accessory muscle use. HEART: Irregular without murmur, rub or gallop. ABDOMEN: Soft, nontender, nondistended, normoactive bowel sounds, no guarding, no rebound, no hepatosplenomegaly, no masses. EXTREMITIES: 2+ pulses, warm, well-perfused, no edema. NEUROLOGICAL: Cranial nerves II through XII grossly intact. Normal speech, gait not observed. PSYCH: Normal mood, normal affect. SKIN: Warm, dry, normal turgor, no rashes or lesions noted Laboratory Results - last 24 hr 10/15/19 10/15/19 10/16/19 07:20 07:20 07:50 PT with INR INR Sodium Potassium Chloride Carbon Dioxide Anion Gap BUN Creatinine Est GFR (CKD-EPI)AfAm Est GFR (CKD-EPI)NonAf Random Glucose Calcium Magnesium Total Bilirubin 1.0 Direct Bilirubin 0.2 AST 17 ALT 12 L Alkaline Phosphatase 43 L Troponin I < 0.03 < 0.03 Total Protein 6.8 Albumin 3.7 10/16/19 10/16/19 07:50 07:50 PT with INR 15.6 H INR 1.40 H Sodium 141 Potassium 3.9 Chloride 105 Carbon Dioxide 30 Anion Gap 6 L BUN 15.0 Creatinine 0.6 Est GFR (CKD-EPI)AfAm 97.01 Est GFR (CKD-EPI)NonAf 83.70 Random Glucose 104 Calcium 9.1 Magnesium 1.6 L Total Bilirubin 0.9 Direct Bilirubin AST 16 ALT 13 Alkaline Phosphatase 42 L Troponin I Total Protein 6.2 L Albumin 3.3 L Active Medications Generic Name Dose Route Start Last Admin Trade Name Freq PRN Reason Stop Dose Admin Albuterol Sulfate 1 amp 10/15/19 00:43 Ventolin 0.083% Nebulizer Soln - NEB Q6H PRN SHORT OF BREATH/WHEEZING Ascorbic Acid 500 mg 10/15/19 10:00 10/15/19 21:20 Vitamin C - PO 500 mg BID [facility]E Administration Atorvastatin Calcium 20 mg 10/15/19 22:00 10/15/19 21:20 Lipitor - PO 20 mg HS [facility]E Administration Budesonide/Formoterol Fumarate 2 puff 10/15/19 10:00 10/15/19 21:21 Symbicort 80/4.5mcg - IH 2 puff BID [facility] Administration Calcium Carbonate 500 mg 10/15/19 10:00 10/15/19 10:36 Os-Irvin 500mg - PO 500 mg DAILY [facility] Administration Cyanocobalamin 100 mcg 10/15/19 10:00 10/15/19 10:37 Vitamin B12 - PO 100 mcg DAILY [facility] Administration Digoxin 0.125 mg 10/15/19 10:00 10/15/19 10:31 Lanoxin - PO 0.125 mg DAILY [facility] Administration Enoxaparin Sodium 60 mg 10/15/19 16:00 10/16/19 03:50 Lovenox - SQ 60 mg Q12H [facility] Administration Melatonin 5 mg 10/15/19 22:00 10/15/19 21:21 Melatonin PO 5 mg HS [facility] Administration Metoprolol Succinate 200 mg 10/15/19 22:00 10/15/19 21:21 Toprol Xl - PO 200 mg HS [facility] Administration Non-Formulary Medication 1.2 gm 10/15/19 10:00 Mesalamine [Lialda] PO BID [facility] Pantoprazole Sodium 40 mg 10/15/19 10:00 10/15/19 10:36 Protonix - PO 40 mg DAILY [facility] Administration Ramipril 2.5 mg 10/15/19 10:00 10/15/19 10:31 Altace - PO 2.5 mg DAILY [facility] Administration Tiotropium [place] 2 puff 10/15/19 10:00 10/15/19 10:37 Spiriva Respimat IH Not Given DAILY [facility] ASSESSMENT/PLAN: This is an 84-year-old h/o COPD, afib with RVR on coumadin per INR, CAD s/p D1 stent 2005, angina pectoris, GERD, hyperlipidemia female brought in by her daughters for evaluation of shortness of breath x2 days, admitted with COPD Exacerbation. *COPD exacerbation -Chest x-ray COPD but no acute pathology - pul following, rec to HOLD SYSTEMIC STEROIDS FOR NOW - will cont on Inhalers- Spiriva, Symbicort, Albuterol - monitor pulse ox -Abx-Ceftriaxone - will check Influenza and sputum culture * Rapid A- Fib - HR improved -EKG atrial fibrillation at a rate of 118's -Trop neg x3 - INR sub-therapeutic 1.40 -Will treat with Lovenox 60mg q12 hour and will give Coumadin 5mg ( home dose 2mg ) - recheck labs in AM. -Cont Digoxin 0.125mg PO daily - will check Dig level *HTN/CAD/HLD -Metoprolol Succ 200mg PO HS -Ramipril 2.5mg PO daily -Atorvastatin 20mg PO HS *GERD -Protonix 40mg PO Daily * Ulcerative colitis - on Lialda * Low mg - replacement ordered FEN --PO intake --Replenish PRN --Low Sodium diet DVT Prophylaxis --On Lovenox and Warfarin Dispo --Requires inpatient care Visit type - Emergency Visit Emergency Visit: Yes ED Registration Date: 10/15/19 Care time: The patient presented to the Emergency Department on the above date and was hospitalized for further evaluation of their emergent condition. - New Patient This patient is new to me today: Yes Date on this admission: 10/16/19 - Critical Care Critical Care patient: No
[2019-10-16 09:46] LABS: BASO % 0.3 % (0-2.0); HEMATOCRIT 37.7 % (32.4-45.2); HEMOGLOBIN 12.5 GM/dl (10.7-15.3); LYMPH % 14.3 % (8-40); MCH 32.3 pg (25.7-33.7); MCHC 33.2 g/dl (32.0-36.0); MEAN CELL VOLUME 97.1 fl (80-96); MEAN PLT VOLUME 7.4 fl (7.5-11.1); MONO % 13.3 % (3.8-10.2); NEUT % 72.1 % (42.8-82.8); PLATELET COUNT 327 K/MM3 (134-434); RBC 3.89 M/mm3 (3.60-5.2); RDW 13.4 % (11.6-15.6); WHITE BLOOD COUNT 8.4 K/mm3 (4.0-10.8)
[2019-10-16] MEDS ORDERED: MAGNESIUM SULF 50% (8.12 MEQ/2 ML-1 GM VIAL) IVPB ONE (09:46)
[2019-10-16] MEDS: DOCUSATE SODIUM 100 MG CAPSULE (FP) PO SCH (10:41)
[2019-10-16] MEDS: RAMIPRIL 2.5 MG CAPSULE (FP) PO SCH (10:41)
[2019-10-16] MEDS: CYANOCOBALAMIN (VITAMIN B-12) 100 MCG TABLET PO SCH (10:42)
[2019-10-16] MEDS: ASCORBIC ACID 500 MG TABLET (FP) PO SCH ×2 (10:42→21:31)
[2019-10-16] MEDS: TIOTROPIUM BROMIDE 2.5 MCG (SPIRIVA) RESPIMAT INHALER IH SCH (10:42)
[2019-10-16] MEDS: BUDESONIDE/FORMETEROL FUMARATE 80/4.5 mcg INHALER IH SCH (10:42)
[2019-10-16] MEDS: DIGOXIN 0.125 MG TABLET (FP) PO SCH (10:42)
[2019-10-16] MEDS: PANTOPRAZOLE 40 MG TABLET (FP) PO SCH (10:42)
[2019-10-16] MEDS: CALCIUM (OYSTER SHELL) 500 MG TABLET (FP) PO SCH (10:42)
[2019-10-16] MEDS: CEFTRIAXONE 1 GM in DEXTROSE 5%-WATER - 50 ML IVPB SCH (11:00)
[2019-10-16] MEDS ORDERED: WARFARIN NA 5 MG TABLET (UD) PO ONE (18:00)
[2019-10-16] MEDS: MELATONIN 5 MG TABLETS PO SCH (21:31)
[2019-10-16] MEDS: ATORVASTATIN CA 20 MG TABLET (FP) PO SCH (21:31)
[2019-10-16] MEDS: BUDESONIDE/FORMETEROL FUMARATE 160/4.5 mcg INHALER IH SCH (21:32)
[2019-10-17] MEDS: ENOXAPARIN NA (PORCINE) 60 MG/0.6 ML DISP.SYRIN SQ SCH ×2 (03:01→17:05)
--- NOTE | 2019-10-17 07:42 | PN ---
Progress Note, Physician History of Present Illness: pulmonary alert,feeling better,congestion improving,+ moist cough - Current Medication List Current Medications: Active Medications Albuterol Sulfate (Ventolin 0.083% Nebulizer Soln -) 1 amp NEB Q6H PRN PRN Reason: SHORT OF BREATH/WHEEZING Ascorbic Acid (Vitamin C -) 500 mg PO BID [facility] Last Admin: 10/16/19 21:31 Dose: 500 mg Atorvastatin Calcium (Lipitor -) 20 mg PO HS [facility] Last Admin: 10/16/19 21:31 Dose: 20 mg Budesonide/Formoterol Fumarate (Symbicort 160/4.5mcg -) 2 puff IH BID [facility] Last Admin: 10/16/19 21:32 Dose: 2 puff Calcium Carbonate (Os-Irvin 500mg -) 500 mg PO DAILY [facility] Last Admin: 10/16/19 10:42 Dose: 500 mg Cyanocobalamin (Vitamin B12 -) 100 mcg PO DAILY [facility] Last Admin: 10/16/19 10:42 Dose: 100 mcg Digoxin (Lanoxin -) 0.125 mg PO DAILY [facility] Last Admin: 10/16/19 10:42 Dose: 0.125 mg Docusate Sodium (Colace -) 100 mg PO DAILY [facility] Last Admin: 10/16/19 10:41 Dose: 100 mg Enoxaparin Sodium (Lovenox -) 60 mg SQ Q12H [facility] Last Admin: 10/17/19 03:01 Dose: 60 mg Ceftriaxone Sodium 1 gm/ (Dextrose) 50 mls @ 200 mls/hr IVPB DAILY [facility]; Protocol Last Admin: 10/16/19 11:00 Dose: 200 mls/hr Melatonin (Melatonin) 5 mg PO HS [facility] Last Admin: 10/16/19 21:31 Dose: 5 mg Metoprolol Succinate (Toprol Xl -) 200 mg PO HS [facility] Last Admin: 10/16/19 21:31 Dose: 200 mg Non-Formulary Medication (Mesalamine [Lialda]) 1.2 gm PO BID [facility] Pantoprazole Sodium (Protonix -) 40 mg PO DAILY [facility] Last Admin: 10/16/19 10:42 Dose: 40 mg Ramipril (Altace -) 2.5 mg PO DAILY [facility] Last Admin: 10/16/19 10:41 Dose: 2.5 mg Tiotropium [place] (Spiriva Respimat) 2 puff IH DAILY [facility] Last Admin: 10/16/19 10:42 Dose: 2 puff - Objective Vital Signs: Vital Signs Temperature 97.9 F 10/17/19 06:00 Pulse Rate 80 10/17/19 06:00 Respiratory Rate 18 10/17/19 06:00 Blood Pressure 119/71 10/17/19 06:00 O2 Sat by Pulse Oximetry (%) 97 10/17/19 06:00 Constitutional: Yes: Well Nourished, Calm Eyes: Yes: WNL HENT: Yes: WNL Neck: Yes: WNL Cardiovascular: Yes: Pulse Irregular, S1, S2 Respiratory: Yes: Rhonchi (few rhonchi) Gastrointestinal: Yes: Normal Bowel Sounds, Soft Extremities: Yes: WNL Edema: No Labs: Assessment/Plan Problem List - Problems (1) Acute bronchitis Code(s): J20.9 - ACUTE BRONCHITIS, UNSPECIFIED (2) Atrial fibrillation Code(s): I48.91 - UNSPECIFIED ATRIAL FIBRILLATION Qualifiers: (3) COPD exacerbation Code(s): J44.1 - CHRONIC OBSTRUCTIVE PULMONARY DISEASE W (ACUTE) EXACERBATION (4) Coronary artery disease Code(s): I25.10 - ATHSCL HEART DISEASE OF [place] CORONARY ARTERY W/O ANG PCTRS Qualifiers: Coronary Disease-Associated Artery/Lesion type: [place] artery [place] vs. transplanted heart: [place] heart Associated angina: with unstable angina Qualified Code(s): I25.110 - Atherosclerotic heart disease of [place] coronary artery with unstable angina pectoris (5) Hyperlipidemia Code(s): E78.5 - HYPERLIPIDEMIA, UNSPECIFIED Assessment/Plan CHEST PT O2 INHALED BRONCHODILATORS INHALED STEROIDS IV ANTIBIOTICS ANTICOAGULATION DR GARCÍA
[2019-10-17 09:04] LABS: BASO % 0.5 % (0-2.0); HEMATOCRIT 39.9 % (32.4-45.2); HEMOGLOBIN 12.8 GM/dl (10.7-15.3); LYMPH % 22.4 % (8-40); MCH 31.3 pg (25.7-33.7); MEAN CELL VOLUME 97.7 fl (80-96); MEAN PLT VOLUME 8.1 fl (7.5-11.1); MONO % 13.7 % (3.8-10.2); NEUT % 63.4 % (42.8-82.8); PLATELET COUNT 321 K/MM3 (134-434); RBC 4.09 M/mm3 (3.60-5.2); RDW 13.8 % (11.6-15.6); WHITE BLOOD COUNT 7.4 K/mm3 (4.0-10.8)
[2019-10-17 09:48] LABS: INR 1.61 (0.82-1.09); PROTHROMBIN TIME (PATIENT) 17.9 SEC (10.2-13.0)
[2019-10-17] MEDS ORDERED: CEFTRIAXONE 1 G/50 ML PREMIX 50 ML IVPB SCH (10:32)
[2019-10-17] MEDS ORDERED: PT OWN MED DRAWER 7, Y5N ONE (10:32)
[2019-10-17] MEDS: DOCUSATE SODIUM 100 MG CAPSULE (FP) PO SCH (10:38)
[2019-10-17] MEDS: RAMIPRIL 2.5 MG CAPSULE (FP) PO SCH (10:38)
[2019-10-17] MEDS: DIGOXIN 0.125 MG TABLET (FP) PO SCH (10:39)
[2019-10-17] MEDS: CALCIUM (OYSTER SHELL) 500 MG TABLET (FP) PO SCH (10:39)
[2019-10-17] MEDS: CEFTRIAXONE 1 GM in DEXTROSE 5%-WATER - 50 ML IVPB SCH (10:40)
[2019-10-17] MEDS: PANTOPRAZOLE 40 MG TABLET (FP) PO SCH (10:40)
[2019-10-17] MEDS: TIOTROPIUM BROMIDE 2.5 MCG (SPIRIVA) RESPIMAT INHALER IH SCH (10:41)
[2019-10-17] MEDS: BUDESONIDE/FORMETEROL FUMARATE 160/4.5 mcg INHALER IH SCH ×2 (10:42→21:43)
[2019-10-17] MEDS: CYANOCOBALAMIN (VITAMIN B-12) 100 MCG TABLET PO SCH (10:43)
[2019-10-17] MEDS: ASCORBIC ACID 500 MG TABLET (FP) PO SCH ×2 (10:43→21:43)
--- NOTE | 2019-10-17 11:21 | PN ---
Physical Exam: SUBJECTIVE: Patient seen and examined, reports feeling better, denies sob, chest pain INR 1.6 today (received 5 mg coumadin yesterday, will start Coumadin 3 mg tonight) OBJECTIVE: Vital Signs Period Temp Pulse Resp BP Sys/[place] Pulse Ox Last 24 Hr 97.9 F-98.4 F 64-91 17-18 103-127/50-71 94-100 GENERAL: The patient is awake, alert, and fully oriented, in no acute distress. HEAD: Normal with no signs of trauma. EYES: PERRL, extraocular movements intact, sclera anicteric, conjunctiva clear. No ptosis. ENT: Ears normal, nares patent, oropharynx clear without exudates, moist mucous membranes. NECK: Trachea midline, full range of motion, supple. LUNGS: Breath sounds equal, clear to auscultation bilaterally, no wheezes, no crackles, no accessory muscle use. HEART: Regular rate and rhythm, S1, S2 without murmur, rub or gallop. ABDOMEN: Soft, nontender, nondistended, normoactive bowel sounds, no guarding, no rebound, no hepatosplenomegaly, no masses. EXTREMITIES: 2+ pulses, warm, well-perfused, no edema. NEUROLOGICAL: Cranial nerves II through XII grossly intact. Normal speech, gait not observed. PSYCH: Normal mood, normal affect. SKIN: Warm, dry, normal turgor, no rashes or lesions noted Laboratory Results - last 24 hr 10/16/19 10/17/19 10/17/19 07:50 07:45 07:45 WBC 7.4 RBC 4.09 Hgb 12.8 Hct 39.9 MCV 97.7 H MCH 31.3 MCHC 32.0 RDW 13.8 Plt Count 321 MPV 8.1 Absolute Neuts (auto) 4.7 Neutrophils % 63.4 Lymphocytes % 22.4 Monocytes % 13.7 H Eosinophils % 0.0 Basophils % 0.5 PT with INR 17.9 H INR 1.61 H Magnesium Digoxin 0.85 10/17/19 07:45 WBC RBC Hgb Hct MCV MCH MCHC RDW Plt Count MPV Absolute Neuts (auto) Neutrophils % Lymphocytes % Monocytes % Eosinophils % Basophils % PT with INR INR Magnesium 1.9 Digoxin Active Medications Generic Name Dose Route Start Last Admin Trade Name Freq PRN Reason Stop Dose Admin Albuterol Sulfate 1 amp 10/15/19 00:43 Ventolin 0.083% Nebulizer Soln - NEB Q6H PRN SHORT OF BREATH/WHEEZING Ascorbic Acid 500 mg 10/15/19 10:00 10/17/19 10:43 Vitamin C - PO 500 mg BID JOE Administration Atorvastatin Calcium 20 mg 10/15/19 22:00 10/16/19 21:31 Lipitor - PO 20 mg HS [facility]E Administration Budesonide/Formoterol Fumarate 2 puff 10/16/19 22:00 10/17/19 10:42 Symbicort 160/4.5mcg - IH 2 puff BID [facility] Administration Calcium Carbonate 500 mg 10/15/19 10:00 10/17/19 10:39 Os-Irvin 500mg - PO 500 mg DAILY [facility] Administration Cyanocobalamin 100 mcg 10/15/19 10:00 10/17/19 10:43 Vitamin B12 - PO 100 mcg DAILY [facility] Administration Digoxin 0.125 mg 10/15/19 10:00 10/17/19 10:39 Lanoxin - PO 0.125 mg DAILY [facility] Administration Docusate Sodium 100 mg 10/16/19 10:00 10/17/19 10:38 Colace - PO 100 mg DAILY [facility] Administration Enoxaparin Sodium 60 mg 10/15/19 16:00 10/17/19 03:01 Lovenox - SQ 60 mg Q12H [facility] Administration Ceftriaxone Sodium 50 mls @ 100 mls/hr 10/17/19 10:32 Ceftriaxone 1 Gm-D5w Bag IVPB DAILY [facility] Protocol Melatonin 5 mg 10/15/19 22:00 10/16/19 21:31 Melatonin PO 5 mg HS [facility]E Administration Metoprolol Succinate 200 mg 10/15/19 22:00 10/16/19 21:31 Toprol Xl - PO 200 mg HS [facility]E Administration Non-Formulary Medication 1.2 gm 10/15/19 10:00 Mesalamine [Lialda] PO BID [facility] Pantoprazole Sodium 40 mg 10/15/19 10:00 10/17/19 10:40 Protonix - PO 40 mg DAILY [facility] Administration Ramipril 2.5 mg 10/15/19 10:00 10/17/19 10:38 Altace - PO 2.5 mg DAILY [facility] Administration Tiotropium [place] 2 puff 10/15/19 10:00 10/17/19 10:41 Spiriva Respimat IH 2 puff DAILY [facility] Administration Warfarin Sodium 3 mg 10/17/19 18:00 Coumadin - PO DAILY@1800 [facility] ASSESSMENT/PLAN: This is an 84-year-old h/o COPD, afib with RVR on coumadin per INR, CAD s/p D1 stent 2005, angina pectoris, GERD, hyperlipidemia female brought in by her daughters for evaluation of shortness of breath x2 days, admitted with COPD Exacerbation. *COPD exacerbation -Chest x-ray COPD but no acute pathology - pul following, rec to HOLD SYSTEMIC STEROIDS FOR NOW - will cont on Inhalers- Spiriva, Symbicort, Albuterol -Abx-Ceftriaxone * Rapid A- Fib - HR improved -EKG atrial fibrillation at a rate of 118's -Trop neg x3 - INR sub-therapeutic 1.6 today -Will treat with Lovenox 60mg q12 hour, coumadin 3mg qpm -monitor INR daily -Cont Digoxin 0.125mg PO daily -Dig level wnl 0.85 *HTN/CAD/HLD -Metoprolol Succ 200mg PO HS -Ramipril 2.5mg PO daily -Atorvastatin 20mg PO HS *GERD -Protonix 40mg PO Daily * Ulcerative colitis - on Lialda * Low mg - replacement ordered FEN --PO intake --Replenish PRN --Low Sodium diet DVT Prophylaxis --On Lovenox and Warfarin Dispo --Requires inpatient care Visit type - Emergency Visit Emergency Visit: Yes ED Registration Date: 10/15/19 Care time: The patient presented to the Emergency Department on the above date and was hospitalized for further evaluation of their emergent condition. - New Patient This patient is new to me today: No - Critical Care Critical Care patient: No
[2019-10-17] MEDS: ACETAMINOPHEN 325 MG TABLET (FP) PO PRN (13:25)
[2019-10-17] MEDS ORDERED: WARFARIN NA 3 MG TABLET PO SCH (18:00)
[2019-10-17] MEDS: MELATONIN 5 MG TABLETS PO SCH (21:43)
[2019-10-17] MEDS: ATORVASTATIN CA 20 MG TABLET (FP) PO SCH (21:43)
[2019-10-18] MEDS: ENOXAPARIN NA (PORCINE) 60 MG/0.6 ML DISP.SYRIN SQ SCH ×2 (04:07→16:10)
[2019-10-18 08:18] LABS: BASO % 0.4 % (0-2.0); EOS % 0.1 % (0-4.5); HEMATOCRIT 37.1 % (32.4-45.2); HEMOGLOBIN 12.3 GM/dl (10.7-15.3); LYMPH % 18.3 % (8-40); MCHC 33.2 g/dl (32.0-36.0); MEAN CELL VOLUME 96.3 fl (80-96); MEAN PLT VOLUME 8.7 fl (7.5-11.1); MONO % 12.2 % (3.8-10.2); PLATELET COUNT 358 K/MM3 (134-434); RBC 3.85 M/mm3 (3.60-5.2); RDW 13.3 % (11.6-15.6); WHITE BLOOD COUNT 8.7 K/mm3 (4.0-10.8)
[2019-10-18 08:23] LABS: INR 1.88 (0.82-1.09); PROTHROMBIN TIME (PATIENT) 20.8 SEC (10.2-13.0)
[2019-10-18 08:25] LABS: ALBUMIN 3.2 g/dl (3.4-5.0); BILIRUBIN,TOTAL 0.8 mg/dl (0.2-1); CALCIUM 9.2 mg/dl (8.5-10); CREATININE 0.5 mg/dl (0.55-1.3); MAGNESIUM 1.7 mg/dL (1.8-2.4); POTASSIUM 4.1 mmol/L (3.5-5.1); TOT PROT 6.3 g/dl (6.4-8.2)
[2019-10-18] MEDS: PANTOPRAZOLE 40 MG TABLET (FP) PO SCH (09:29)
[2019-10-18] MEDS: CYANOCOBALAMIN (VITAMIN B-12) 100 MCG TABLET PO SCH (09:29)
[2019-10-18] MEDS: DOCUSATE SODIUM 100 MG CAPSULE (FP) PO SCH (09:29)
[2019-10-18] MEDS: CALCIUM (OYSTER SHELL) 500 MG TABLET (FP) PO SCH (09:29)
[2019-10-18] MEDS: RAMIPRIL 2.5 MG CAPSULE (FP) PO SCH (09:29)
[2019-10-18] MEDS: ASCORBIC ACID 500 MG TABLET (FP) PO SCH ×2 (09:30→21:27)
[2019-10-18] MEDS: BUDESONIDE/FORMETEROL FUMARATE 160/4.5 mcg INHALER IH SCH ×2 (10:10→21:27)
[2019-10-18] MEDS: TIOTROPIUM BROMIDE 2.5 MCG (SPIRIVA) RESPIMAT INHALER IH SCH (10:10)
[2019-10-18] MEDS ORDERED: CEFTRIAXONE 1 GM in DEXTROSE 5%-WATER - 50 ML IVPB SCH (13:00)
[2019-10-18] MEDS ORDERED: MAGNESIUM SULF 50% (8.12 MEQ/2 ML-1 GM VIAL) IVPB ONE (13:15)
[2019-10-18] MEDS ORDERED: SODIUM CHLORIDE 1,000 ML IV SCH (16:15)
[2019-10-18] MEDS: DIGOXIN 0.125 MG TABLET (FP) PO SCH (17:29)
[2019-10-18] MEDS: DEXTROSE 5%-0.45% SALINE 1,000 ML IV SCH (17:30)
--- NOTE | 2019-10-18 17:42 | PN ---
Progress Note (short form) - Note Progress Note: PULMONARY SPIKED TEMP TODAY ANOREXIA/WEAKNESS CT CHEST NOTED NO LARGE CONSOLIDATIONS/EFFUSIONS NOTED SEGMENTAL ATELECTASIS NOTED VS LINEAR INFILTRATE LEFT MID LUNG ZONE NOTED PALE/ANICTERIC B/L RHONCHI S1S2 IRREG BS+ NO EDEMA LABS/MEDS/NOTES REVIEWED (1) Acute bronchitis Code(s): J20.9 - ACUTE BRONCHITIS, UNSPECIFIED (2) Atrial fibrillation Code(s): I48.91 - UNSPECIFIED ATRIAL FIBRILLATION Qualifiers: (3) COPD exacerbation Code(s): J44.1 - CHRONIC OBSTRUCTIVE PULMONARY DISEASE W (ACUTE) EXACERBATION (4) Coronary artery disease Code(s): I25.10 - ATHSCL HEART DISEASE OF [place] CORONARY ARTERY W/O ANG PCTRS Qualifiers: Coronary Disease-Associated Artery/Lesion type: [place] artery [place] vs. transplanted heart: [place] heart Associated angina: with unstable angina Qualified Code(s): I25.110 - Atherosclerotic heart disease of [place] coronary artery with unstable angina pectoris (5) Hyperlipidemia Code(s): E78.5 - HYPERLIPIDEMIA, UNSPECIFIED Assessment/Plan CHEST PT/O2/BRONCHODILATORS/IV ANTIBIOTICS/IV FLUIDS SPUTUM C/S, INFLU SCREENING ANTICOAGULATION/CONTINUE HOME MEDS CHECK RESP VIRAL PCR/CRP/LACTIC ACID ID EVALUATION R SHO ÁLVAREZ Problem List - Problems (1) Acute bronchitis Code(s): J20.9 - ACUTE BRONCHITIS, UNSPECIFIED (2) Atrial fibrillation Code(s): I48.91 - UNSPECIFIED ATRIAL FIBRILLATION Qualifiers: (3) COPD exacerbation Code(s): J44.1 - CHRONIC OBSTRUCTIVE PULMONARY DISEASE W (ACUTE) EXACERBATION (4) Coronary artery disease Code(s): I25.10 - ATHSCL HEART DISEASE OF [place] CORONARY ARTERY W/O ANG PCTRS Qualifiers: Coronary Disease-Associated Artery/Lesion type: [place] artery [place] vs. transplanted heart: [place] heart Associated angina: with unstable angina Qualified Code(s): I25.110 - Atherosclerotic heart disease of [place] coronary artery with unstable angina pectoris (5) Hyperlipidemia Code(s): E78.5 - HYPERLIPIDEMIA, UNSPECIFIED
[2019-10-18] MEDS ORDERED: ACETAMINOPHEN 1000 MG/100 ML VIAL (NON FORMULARY) IVPB PRN (17:43)
[2019-10-18] MEDS ORDERED: DOXYCYCLINE HYCLATE 100 MG VIAL ONE (17:50)
[2019-10-18] MEDS ORDERED: DEXTROSE 5%-WATER 100 ML IVPB ONE (17:51)
[2019-10-18] MEDS ORDERED: DOXYCYCLINE INJECTION 100 MG in DEXTROSE 5%-WATER 100 ML IVPB ONE (18:00)
[2019-10-18] MEDS: WARFARIN NA 5 MG TABLET (UD) PO SCH (18:02)
--- NOTE | 2019-10-18 19:32 | PN ---
Documentation entered by Britta Delacruz SCRIBE, acting as scribe for Michelle Thomas NP. Physical Exam: SUBJECTIVE: Patient seen and examined. Feels worse today, body aches, generalized weakness, and SOB. OBJECTIVE: Vital Signs Period Temp Pulse Resp BP Sys/[place] Pulse Ox Last 24 Hr 97.6 F-98.4 F 64-98 16-18 104-120/48-61 94-100 GENERAL: A&Ox3. Lethargic, ill-appearing. LUNGS: Diffuse rhonchi. HEART: Irregular rate and rhythm, S1, S2 ABDOMEN: Soft, nontender, nondistended. EXTREMITIES: 2+ pulses, warm, well-perfused, no edema. NEUROLOGICAL: Cranial nerves II through XII grossly intact. Normal speech, gait not observed. Laboratory Results - last 24 hr 10/17/19 10/17/19 10/17/19 07:45 07:45 07:45 WBC 7.4 RBC 4.09 Hgb 12.8 Hct 39.9 MCV 97.7 H MCH 31.3 MCHC 32.0 RDW 13.8 Plt Count 321 MPV 8.1 Absolute Neuts (auto) 4.7 Neutrophils % 63.4 Lymphocytes % 22.4 Monocytes % 13.7 H Eosinophils % 0.0 Basophils % 0.5 PT with INR 17.9 H INR 1.61 H Sodium Potassium Chloride Carbon Dioxide Anion Gap BUN Creatinine Est GFR (CKD-EPI)AfAm Est GFR (CKD-EPI)NonAf Random Glucose Calcium Magnesium 1.9 Total Bilirubin AST ALT Alkaline Phosphatase Total Protein Albumin 10/18/19 10/18/19 10/18/19 07:22 07:22 07:22 WBC 8.7 RBC 3.85 Hgb 12.3 Hct 37.1 MCV 96.3 H MCH 32.0 MCHC 33.2 RDW 13.3 Plt Count 358 MPV 8.7 Absolute Neuts (auto) 6.0 Neutrophils % 69.0 Lymphocytes % 18.3 Monocytes % 12.2 H Eosinophils % 0.1 Basophils % 0.4 PT with INR 20.8 H INR 1.88 H Sodium 139 Potassium 4.1 Chloride 103 Carbon Dioxide 28 Anion Gap 8 BUN 11.0 Creatinine 0.5 L Est GFR (CKD-EPI)AfAm 103.01 Est GFR (CKD-EPI)NonAf 88.88 Random Glucose 101 Calcium 9.2 Magnesium 1.7 L Total Bilirubin 0.8 AST 16 ALT 13 Alkaline Phosphatase 42 L Total Protein 6.3 L Albumin 3.2 L Active Medications Generic Name Dose Route Start Last Admin Trade Name Constanza PRN Reason Stop Dose Admin Acetaminophen 650 mg 10/17/19 12:09 10/17/19 13:25 Tylenol - PO 650 mg Q4H PRN Administration PAIN LEVEL 4 - 6 Albuterol Sulfate 1 amp 10/15/19 00:43 Ventolin 0.083% Nebulizer Soln - NEB Q6H PRN SHORT OF BREATH/WHEEZING Ascorbic Acid 500 mg 10/15/19 10:00 10/17/19 21:43 Vitamin C - PO 500 mg BID JOE Administration Atorvastatin Calcium 20 mg 10/15/19 22:00 10/17/19 21:43 Lipitor - PO 20 mg HS JOE Administration Budesonide/Formoterol Fumarate 2 puff 10/16/19 22:00 10/17/19 21:43 Symbicort 160/4.5mcg - IH 2 puff BID JOE Administration Calcium Carbonate 500 mg 10/15/19 10:00 10/17/19 10:39 Os-Irvin 500mg - PO 500 mg DAILY JOE Administration Cyanocobalamin 100 mcg 10/15/19 10:00 10/17/19 10:43 Vitamin B12 - PO 100 mcg DAILY JOE Administration Digoxin 0.125 mg 10/15/19 10:00 10/17/19 10:39 Lanoxin - PO 0.125 mg DAILY JOE Administration Docusate Sodium 100 mg 10/16/19 10:00 10/17/19 10:38 Colace - PO 100 mg DAILY JOE Administration Enoxaparin Sodium 60 mg 10/15/19 16:00 10/18/19 04:07 Lovenox - SQ 60 mg Q12H JOE Administration Ceftriaxone Sodium 50 mls @ 100 mls/hr 10/17/19 10:32 Ceftriaxone 1 Gm-D5w Bag IVPB DAILY JOE Protocol Melatonin 5 mg 10/15/19 22:00 10/17/19 21:43 Melatonin PO 5 mg HS JOE Administration Metoprolol Succinate 200 mg 10/15/19 22:00 10/17/19 21:43 Toprol Xl - PO 200 mg HS JOE Administration Non-Formulary Medication 1.2 gm 10/15/19 10:00 Mesalamine [Lialda] PO BID JOE Pantoprazole Sodium 40 mg 10/15/19 10:00 10/17/19 10:40 Protonix - PO 40 mg DAILY JOE Administration Ramipril 2.5 mg 10/15/19 10:00 10/17/19 10:38 Altace - PO 2.5 mg DAILY JOE Administration Tiotropium [place] 2 puff 10/15/19 10:00 10/17/19 10:41 Spiriva Respimat IH 2 puff DAILY JOE Administration Warfarin Sodium 3 mg 10/17/19 18:00 10/17/19 17:40 Coumadin - PO 3 mg DAILY@1800 JOE Administration ASSESSMENT/PLAN: This is an 84 year-old female with a PMH significant for HTN, HLD, CAD s/p stent 2005, afib on coumadin, and OA with chronic back pain. Admitted for SOB secondary to possible COPD exacerbation. Spiked fever today. Sepsis secondary to community acquired pneumonia Chronic COPD --fever spike today 101.3, p110, lethargic, body aches, cough; lactic acid pending --CT chest: infiltrates within the lingula and in the RUL --continue ceftriaxone (day #4), start azithro (day #1) (monitor for dig toxicity - dig level wnl on 10/16, repeat on 10/20) --duonebs q6h scheduled --continue Symbicort, spiriva --IV fluids; will not fluid resuscitate according to goal-directed therapy guidelines due to co-morbidities --titrate SpO2 >95% Mediastinal opacity --5.4 x 4 x 2cm oblong-shaped anterior mediastinal opacity, soft tissue lesion v. cyst with internal debris --will try to get previous CT imaging for comparison --radiologist suggests pulmonary input in regards to appropriate follow-up --pulmonary following Atrial fibrillation with RVR --rate to 120 on admission, better controlled for past few days, back to 110 today but possibly due to fever spike --continue Toprol XL, digoxin (monitor for dig toxicity while on macrolide - dig level wnl on 10/16, repeat on 10/20) --duonebs q6h scheduled --INR 1.45 on admission, today 1.88, dose coumadin 5mg tonight; continue lovexox 1mg/kg BID until INR 2-3 ST changes --ST depressions II, III, AVF, V4, V5, V6 --troponins neg x 3 --repeat ECG --telemetry monitoring --cardiology consult Hypertension --normotensive to borderline low --continue ToprolXL, hold Ramipril due to sepsis Hyperlipidemia --continue Lipitor GERD --protonix Ulcerative colitis --continue mesalamine 1.2g BID - patient's own med Hypomagnesemia --replete FEN --Fluids: D51/2@ 75mL/hr --Electrolytes: replete as indicated --Nutrition: low sodium Physical therapy DVT Prophylaxis: on Lovenox bridging warfarin Dispo: continues to require inpatient care. Full code. Visit type - Emergency Visit Emergency Visit: Yes ED Registration Date: 10/15/19 Care time: The patient presented to the Emergency Department on the above date and was hospitalized for further evaluation of their emergent condition. - New Patient This patient is new to me today: Yes Date on this admission: 10/18/19 - Critical Care Critical Care patient: Yes Total Critical Care Time (in minutes): 60 Critical Care Statement: The care of this patient involved high complexity decision making to prevent further life threatening deterioration of the patient 's condition and/or to evaluate & treat vital organ system(s) failure or risk of failure. Michelle Thomas NP: This documentation has been prepared by the Jayme suero Maria, SCRIBE, under my direction and personally reviewed by me in its entirety. I confirm that the documentation accurately reflects all work, treatment, procedures, and medical decision making performed by me.
[2019-10-18] MEDS: ALBUTEROL SO4 2.5/IPRATROPIUM 0.5 INH SOL 3 ML VIAL.NEB. NEB SCH (20:06)
[2019-10-18] MEDS: ATORVASTATIN CA 20 MG TABLET (FP) PO SCH (21:26)
[2019-10-18] MEDS: MELATONIN 5 MG TABLETS PO SCH (21:26)
[2019-10-18] MEDS: AZITHROMYCIN IVPB 500 MG/250 ML BAG IVPB SCH (21:26)
[2019-10-18] MEDS ORDERED: DOXYCYCLINE INJECTION 100 MG in DEXTROSE 5%-WATER - 100 ML IVPB SCH (22:00)
[2019-10-19] MEDS: ENOXAPARIN NA (PORCINE) 60 MG/0.6 ML DISP.SYRIN SQ SCH (04:00)
[2019-10-19 08:03] LABS: BASO % 0.4 % (0-2.0); HEMATOCRIT 37.3 % (32.4-45.2); HEMOGLOBIN 12.2 GM/dl (10.7-15.3); LYMPH % 14.4 % (8-40); MCH 31.6 pg (25.7-33.7); MCHC 32.8 g/dl (32.0-36.0); MEAN CELL VOLUME 96.5 fl (80-96); MEAN PLT VOLUME 8.2 fl (7.5-11.1); MONO % 12.7 % (3.8-10.2); NEUT % 72.5 % (42.8-82.8); PLATELET COUNT 350 K/MM3 (134-434); RBC 3.87 M/mm3 (3.60-5.2); WHITE BLOOD COUNT 9.6 K/mm3 (4.0-10.8)
[2019-10-19 08:16] LABS: ALBUMIN 3.1 g/dl (3.4-5.0); CALCIUM 8.9 mg/dl (8.5-10); CREATININE 0.5 mg/dl (0.55-1.3); MAGNESIUM 1.5 mg/dL (1.8-2.4); POTASSIUM 3.8 mmol/L (3.5-5.1); TOT PROT 6.2 g/dl (6.4-8.2)
[2019-10-19] MEDS: ALBUTEROL SO4 2.5/IPRATROPIUM 0.5 INH SOL 3 ML VIAL.NEB. NEB SCH ×3 (08:25→21:29)
[2019-10-19 08:35] LABS: INR 2.22 (0.82-1.09); PROTHROMBIN TIME (PATIENT) 24.5 SEC (10.2-13.0)
[2019-10-19] MEDS: CEFTRIAXONE 1 GM in DEXTROSE 5%-WATER - 50 ML IVPB SCH (09:00)
--- NOTE | 2019-10-19 09:47 | PN ---
Progress Note (short form) - Note Progress Note: PULMONARY SUBJECTIVE IMPROVEMENT VSS/AFEBRILE ANOREXIA/WEAKNESS LESS CT CHEST :NOTED NO LARGE CONSOLIDATIONS/EFFUSIONS NOTED SEGMENTAL ATELECTASIS NOTED VS LINEAR INFILTRATE LEFT MID LUNG ZONE NOTED PALE/ANICTERIC B/L RHONCHI S1S2 IRREG BS+ NO EDEMA LABS/MEDS/NOTES REVIEWED PCR VIRAL SEROLOGY PENDING (1) Acute bronchitis Code(s): J20.9 - ACUTE BRONCHITIS, UNSPECIFIED (2) Atrial fibrillation Code(s): I48.91 - UNSPECIFIED ATRIAL FIBRILLATION Qualifiers: (3) COPD exacerbation Code(s): J44.1 - CHRONIC OBSTRUCTIVE PULMONARY DISEASE W (ACUTE) EXACERBATION (4) Coronary artery disease Code(s): I25.10 - ATHSCL HEART DISEASE OF [place] CORONARY ARTERY W/O ANG PCTRS Qualifiers: Coronary Disease-Associated Artery/Lesion type: [place] artery [place] vs. transplanted heart: [place] heart Associated angina: with unstable angina Qualified Code(s): I25.110 - Atherosclerotic heart disease of [place] coronary artery with unstable angina pectoris (5) Hyperlipidemia Code(s): E78.5 - HYPERLIPIDEMIA, UNSPECIFIED Assessment/Plan CHEST PT/O2/BRONCHODILATORS/IV ANTIBIOTICS/IV FLUIDS SPUTUM C/S, INFLU SCREENING ANTICOAGULATION/CONTINUE HOME MEDS CHECK RESP VIRAL PCR/CRP/LACTIC ACID ID EVALUATION Krystyna BERKOWITZ MD Problem List - Problems (1) Acute bronchitis Code(s): J20.9 - ACUTE BRONCHITIS, UNSPECIFIED (2) Atrial fibrillation Code(s): I48.91 - UNSPECIFIED ATRIAL FIBRILLATION Qualifiers: (3) COPD exacerbation Code(s): J44.1 - CHRONIC OBSTRUCTIVE PULMONARY DISEASE W (ACUTE) EXACERBATION (4) Coronary artery disease Code(s): I25.10 - ATHSCL HEART DISEASE OF [place] CORONARY ARTERY W/O ANG PCTRS Qualifiers: Coronary Disease-Associated Artery/Lesion type: [place] artery [place] vs. transplanted heart: [place] heart Associated angina: with unstable angina Qualified Code(s): I25.110 - Atherosclerotic heart disease of [place] coronary artery with unstable angina pectoris (5) Hyperlipidemia Code(s): E78.5 - HYPERLIPIDEMIA, UNSPECIFIED
--- NOTE | 2019-10-19 09:51 | PN ---
Progress Note (short form) - Note Progress Note: ID CONSULT DICTATED FEVER ACUTE EXACERBATION COPD CONTINUE CEFTRIAXONE/ [id number]
--- NOTE | 2019-10-19 10:15 | EKG ---
Test Reason : Blood Pressure : / mmHG Vent. Rate : 100 BPM Atrial Rate : 241 BPM P-R Int : 000 ms QRS Dur : 080 ms QT Int : 348 ms P-R-T Axes : 000 058 097 degrees QTc Int : 448 ms ATRIAL FIBRILLATION ANTERIOR INFARCT , AGE UNDETERMINED ABNORMAL ECG WHEN COMPARED WITH ECG OF 14-OCT-2019 23:47, ST NO LONGER DEPRESSED IN ANTERIOR LEADS T WAVE INVERSION NO LONGER EVIDENT IN INFERIOR LEADS T WAVE INVERSION NO LONGER EVIDENT IN LATERAL LEADS Confirmed by MD Caleb, Natan ([id number]) on 10/19/2019 10:15:37 AM Referred By: Confirmed By:Natan Ellis MD
[2019-10-19] MEDS: TIOTROPIUM BROMIDE 2.5 MCG (SPIRIVA) RESPIMAT INHALER IH SCH (10:42)
[2019-10-19] MEDS: ASCORBIC ACID 500 MG TABLET (FP) PO SCH ×2 (10:42→21:28)
[2019-10-19] MEDS: PANTOPRAZOLE 40 MG TABLET (FP) PO SCH (10:42)
[2019-10-19] MEDS: AZITHROMYCIN IVPB 500 MG/250 ML BAG IVPB SCH (10:42)
[2019-10-19] MEDS: BUDESONIDE/FORMETEROL FUMARATE 160/4.5 mcg INHALER IH SCH ×2 (10:42→21:29)
[2019-10-19] MEDS: DIGOXIN 0.125 MG TABLET (FP) PO SCH (10:42)
[2019-10-19] MEDS: CYANOCOBALAMIN (VITAMIN B-12) 100 MCG TABLET PO SCH (10:42)
[2019-10-19] MEDS: CALCIUM (OYSTER SHELL) 500 MG TABLET (FP) PO SCH (10:42)
[2019-10-19] MEDS: DOCUSATE SODIUM 100 MG CAPSULE (FP) PO SCH (10:42)
[2019-10-19] MEDS ORDERED: MAGNESIUM SULF 50% (8.12 MEQ/2 ML-1 GM VIAL) IVPB ONE ×2 (12:57→18:57)
--- NOTE | 2019-10-19 13:10 | PN ---
Documentation entered by Britta Delacruz SCRIBE, acting as scribe for Michelle Thomas NP. Physical Exam: SUBJECTIVE: Patient seen and examined. Patient states feeling much better today than yesterday. OBJECTIVE: Vital Signs Period Temp Pulse Resp BP Sys/[place] Pulse Ox Last 24 Hr 98.0 F-101.3 F 81-110 16-20 100-137/55-69 91-100 GENERAL: A&Ox3. In no acute distress. LUNGS: Bibasilar crackles. HEART: Irregular rate and rhythm, S1, S2 ABDOMEN: Soft, nontender, nondistended. EXTREMITIES: 2+ pulses, warm, well-perfused, no edema. NEUROLOGICAL: Cranial nerves II through XII grossly intact. Normal speech, gait not observed. Laboratory Results - last 24 hr 10/18/19 10/18/19 10/18/19 07:22 07:22 07:22 WBC 8.7 RBC 3.85 Hgb 12.3 Hct 37.1 MCV 96.3 H MCH 32.0 MCHC 33.2 RDW 13.3 Plt Count 358 MPV 8.7 Absolute Neuts (auto) 6.0 Neutrophils % 69.0 Lymphocytes % 18.3 Monocytes % 12.2 H Eosinophils % 0.1 Basophils % 0.4 PT with INR 20.8 H INR 1.88 H Sodium 139 Potassium 4.1 Chloride 103 Carbon Dioxide 28 Anion Gap 8 BUN 11.0 Creatinine 0.5 L Est GFR (CKD-EPI)AfAm 103.01 Est GFR (CKD-EPI)NonAf 88.88 Random Glucose 101 Lactic Acid Calcium 9.2 Magnesium 1.7 L Total Bilirubin 0.8 AST 16 ALT 13 Alkaline Phosphatase 42 L C-Reactive Protein Total Protein 6.3 L Albumin 3.2 L Urine Color Urine Appearance Urine pH Urine Protein Urine Glucose (UA) Urine Ketones Urine Blood Urine Nitrite Urine Bilirubin Urine Urobilinogen Ur Leukocyte Esterase Influenza A (Rapid) Influenza B (Rapid) 10/18/19 10/18/19 10/18/19 12:30 18:05 18:05 WBC RBC Hgb Hct MCV MCH MCHC RDW Plt Count MPV Absolute Neuts (auto) Neutrophils % Lymphocytes % Monocytes % Eosinophils % Basophils % PT with INR INR Sodium Potassium Chloride Carbon Dioxide Anion Gap BUN Creatinine Est GFR (CKD-EPI)AfAm Est GFR (CKD-EPI)NonAf Random Glucose Lactic Acid 1.9 Calcium Magnesium Total Bilirubin AST ALT Alkaline Phosphatase C-Reactive Protein 5.3 H Total Protein Albumin Urine Color Urine Appearance Urine pH Urine Protein Urine Glucose (UA) Urine Ketones Urine Blood Urine Nitrite Urine Bilirubin Urine Urobilinogen Ur Leukocyte Esterase Influenza A (Rapid) Negative Influenza B (Rapid) Negative 10/18/19 18:28 WBC RBC Hgb Hct MCV MCH MCHC RDW Plt Count MPV Absolute Neuts (auto) Neutrophils % Lymphocytes % Monocytes % Eosinophils % Basophils % PT with INR INR Sodium Potassium Chloride Carbon Dioxide Anion Gap BUN Creatinine Est GFR (CKD-EPI)AfAm Est GFR (CKD-EPI)NonAf Random Glucose Lactic Acid Calcium Magnesium Total Bilirubin AST ALT Alkaline Phosphatase C-Reactive Protein Total Protein Albumin Urine Color Yellow Urine Appearance Clear Urine pH 8.5 H Urine Protein Trace Urine Glucose (UA) Negative Urine Ketones Negative Urine Blood Negative Urine Nitrite Negative Urine Bilirubin Negative Urine Urobilinogen 0.2 Ur Leukocyte Esterase Negative Influenza A (Rapid) Influenza B (Rapid) Active Medications Generic Name Dose Route Start Last Admin Trade Name Freq PRN Reason Stop Dose Admin Acetaminophen 650 mg 10/17/19 12:09 10/17/19 13:25 Tylenol - PO 650 mg Q4H PRN Administration PAIN LEVEL 4 - 6 Acetaminophen 1,000 mg 10/18/19 17:43 Ofirmev Injection - IVPB Q6H PRN FEVER Albuterol/Ipratropium 1 amp 10/18/19 20:00 10/18/19 20:06 Duoneb - NEB 1 amp RQID JOE Administration Ascorbic Acid 500 mg 10/15/19 10:00 10/18/19 21:27 Vitamin C - PO 500 mg BID JOE Administration Atorvastatin Calcium 20 mg 10/15/19 22:00 10/18/19 21:26 Lipitor - PO 20 mg HS JOE Administration Budesonide/Formoterol Fumarate 2 puff 10/16/19 22:00 10/18/19 21:27 Symbicort 160/4.5mcg - IH 2 puff BID JOE Administration Calcium Carbonate 500 mg 10/15/19 10:00 10/18/19 09:29 Os-Irvin 500mg - PO 500 mg DAILY JOE Administration Cyanocobalamin 100 mcg 10/15/19 10:00 10/18/19 09:29 Vitamin B12 - PO 100 mcg DAILY JOE Administration Digoxin 0.125 mg 10/15/19 10:00 10/18/19 17:29 Lanoxin - PO 0.125 mg DAILY JOE Administration Docusate Sodium 100 mg 10/16/19 10:00 10/18/19 09:29 Colace - PO 100 mg DAILY JOE Administration Enoxaparin Sodium 60 mg 10/15/19 16:00 10/18/19 16:10 Lovenox - SQ 60 mg Q12H JOE Administration Ceftriaxone Sodium 1 gm/ 50 mls @ 100 mls/hr 10/18/19 18:00 Dextrose IVPB DAILY JOE Protocol Azithromycin 500 mg in 250 mls @ 250 mls/hr 10/18/19 18:00 10/18/19 21:26 Zithromax 500mg Ivpb (Pre-Docked) IVPB 250 mls/hr DAILY JOE Administration Dextrose/Sodium Chloride 1,000 mls @ 75 mls/hr 10/18/19 17:30 10/18/19 17:30 D5-1/2ns - IV 75 mls/hr ASDIR JOE Administration Melatonin 5 mg 10/15/19 22:00 10/18/19 21:26 Melatonin PO 5 mg HS JOE Administration Metoprolol Succinate 200 mg 10/15/19 22:00 10/18/19 21:27 Toprol Xl - PO 200 mg HS JOE Administration Non-Formulary Medication 1 each 10/18/19 22:00 Patient's Own Med PO BID JOE Pantoprazole Sodium 40 mg 10/15/19 10:00 10/18/19 09:29 Protonix - PO 40 mg DAILY JOE Administration Tiotropium [place] 2 puff 10/15/19 10:00 10/18/19 10:10 Spiriva Respimat IH 2 puff DAILY JOE Administration Warfarin Sodium 5 mg 10/18/19 09:46 10/18/19 18:02 Coumadin - PO 5 mg DAILY@1800 JOE Administration ASSESSMENT/PLAN: This is an 84 year-old female with a PMH significant for HTN, HLD, CAD s/p stent 2005, afib on coumadin, and OA with chronic back pain. Admitted for SOB secondary to possible COPD exacerbation. Spiked fever today. Sepsis secondary to multilobar community acquired pneumonia Chronic COPD --Tm 101.3, no leukocytosis, lactic acid wnl --CT chest: infiltrates within the lingula and in the RUL --rapid flu negative; resp virus panel pending; cultures pending, Legionella ordered not yet collected --continue ceftriaxone (day #5), azithro (day #2) --duonebs q6h scheduled --continue Symbicort, Spiriva --titrate SpO2 >95% Mediastinal opacity --5.4 x 4 x 2cm oblong-shaped anterior mediastinal opacity, soft tissue lesion v. cyst with internal debris --will try to get previous CT imaging for comparison --radiologist suggests pulmonary input in regards to appropriate follow-up --pulmonary following Atrial fibrillation with RVR --rate to 120 on admission, better controlled in 90s --continue Toprol XL, digoxin (monitor for dig toxicity while on macrolide - dig level wnl on 10/16, repeat on 10/20) --duonebs q6h scheduled --INR 1.45 on admission, today 2.22; stop lovenox; dose coumadin 5mg tonight ; repeat INR in am ST changes --10/14 ECG: ST depressions II, III, AVF, V4, V5, V6; no longer evident on today's ECG --troponins neg x 3 --telemetry monitoring --cardiology consult Hypertension --normotensive --continue ToprolXL, restart Ramipril Hyperlipidemia --continue Lipitor GERD --protonix Ulcerative colitis --continue mesalamine 1.2g BID - patient's own med Hypomagnesemia --replete FEN --Fluids: PO intake adequate --Electrolytes: replete as indicated --Nutrition: low sodium Physical therapy DVT Prophylaxis: INR therapeutic, continue coumadin Dispo: continues to require inpatient care. Full code. Visit type - Emergency Visit Emergency Visit: Yes ED Registration Date: 10/15/19 Care time: The patient presented to the Emergency Department on the above date and was hospitalized for further evaluation of their emergent condition. - New Patient This patient is new to me today: No - Critical Care Critical Care patient: No Michelle Thomas NP: This documentation has been prepared by the Jayme suero Maria, SCRIBE, under my direction and personally reviewed by me in its entirety. I confirm that the documentation accurately reflects all work, treatment, procedures, and medical decision making performed by me.
--- NOTE | 2019-10-19 15:13 | CON.CARD ---
Consult Consult Specialty:: Cardiology Referred by:: Hospitalist Service Reason for Consultation:: Cardiac evaluation - History of Present Illness Chief Complaint: Shortness of breath and cough History of Present Illness: Patient is an 84 year old female with underlying history of permanent AF on anticoagulation with Coumadin, CAD s/p PCI/stent, angina, COPD and hypercholesterolemia who presented yesterday with shortness ofbreath productive of cough. She also states fever. Currently, she feels better with no chest pain , SOB or palpitations. She denies paroxysmal nocturnal dyspnea or orthopnea. She denies fever today. She denies headache or lightheadedness. She denies nausea, vomiting, diarrhea or abdominal pain. She sees Dr. Michelle Conner ([phone]): Cyber Systems Operations Specialist affiliated with [facility] - History Source History Provided By: Patient, Family Member, Medical Record Limitations to Obtaining History: No Limitations - Past Medical History Cardio/Vascular: Yes: AFIB, CAD, HTN, Hyperlipdemia Pulmonary: Yes: COPD Musculoskeletal: Yes: Osteoarthritis - Past Surgical History Past Surgical History: Yes: Appendectomy, Cataract Removal, Joint Replacement - Alcohol/Substance Use Hx Alcohol Use: No History of Substance Use: reports: None - Smoking History Smoking history: Former smoker Have you smoked in the past 12 months: No Aproximately how many cigarettes per day: 0 If you are a former smoker, when did you quit?: 1984 Home Medications - Allergies Allergies/Adverse Reactions: Allergies Allergy/AdvReac Type Severity Reaction Status Date / Time No Known Allergies Allergy Verified 09/03/19 11:59 - Home Medications Home Medications: Ambulatory Orders Calcium [Hi-Irvin] 500 mg PO DAILY 02/27/15 Cyanocobalamin [Vitamin B12 -] 100 mcg PO DAILY 02/27/15 Acetaminophen [Tylenol] 650 mg PO TID PRN 09/03/19 Ascorbate Calcium [Vitamin C] 500 mg PO BID 09/03/19 Atorvastatin Ca [Lipitor] 20 mg PO HS 09/03/19 Digoxin [Lanoxin -] 0.125 mg PO DAILY 09/03/19 Melatonin 5 mg PO HS 09/03/19 Metoprolol Succinate [Toprol Xl] 200 mg PO HS 09/03/19 Ramipril [Altace] 2.5 mg PO DAILY 09/03/19 Warfarin Sodium [Coumadin] 2 mg PO DAILY 09/03/19 Family Medical History Family Hx Cardiac Disorders: Mother, Father (CAD, [place]) Family Hx Diabetes: Mother Review of Systems - Review of Systems Constitutional: reports: Chills, Fever Cardiovascular: reports: Shortness of Breath. denies: Chest Pain, Palpitations Respiratory: reports: Cough, SOB. denies: Hemoptysis, Orthopnea, PND, Wheezing Gastrointestinal: denies: Abdominal Pain, Constipation, Diarrhea, Melena, Nausea , Rectal Bleeding, Vomiting Genitourinary: denies: Dysuria, Hematuria Musculoskeletal: reports: Back Pain, Joint Pain Neurological: denies: Dizziness, Headache, Seizure, Syncope Vital Signs: Vital Signs Temperature 98.5 F 10/19/19 14:34 Pulse Rate 96 H 10/19/19 14:34 Respiratory Rate 18 10/19/19 14:34 Blood Pressure 121/61 10/19/19 14:34 O2 Sat by Pulse Oximetry (%) 97 10/19/19 14:34 Eyes: Yes: PERRL HENT: Yes: Atraumatic Neck: Yes: Supple Respiratory: Yes: Diminished, Rhonchi Gastrointestinal: Yes: Normal Bowel Sounds, Soft. No: Tenderness Cardiovascular: Yes: Pulse Irregular JVD: No PMI: Non-Displaced Heart Sounds: Yes: S1, S2 Murmur: Yes: Systolic Murmur, Grade 1 Edema: No - Other Data Labs, Other Data: CBC, BMP 10/19/19 07:26 10/19/19 07:26 INR, PTT INR 2.22 (0.82-1.09) H 10/19/19 07:26 Laboratory Results - last 24 hr 10/18/19 10/18/19 10/18/19 18:05 18:05 18:28 WBC RBC Hgb Hct MCV MCH MCHC RDW Plt Count MPV Absolute Neuts (auto) Neutrophils % Lymphocytes % Monocytes % Eosinophils % Basophils % PT with INR INR Sodium Potassium Chloride Carbon Dioxide Anion Gap BUN Creatinine Est GFR (CKD-EPI)AfAm Est GFR (CKD-EPI)NonAf Random Glucose Lactic Acid 1.9 Calcium Magnesium Total Bilirubin AST ALT Alkaline Phosphatase C-Reactive Protein 5.3 H Total Protein Albumin Urine Color Yellow Urine Appearance Clear Urine pH 8.5 H Urine Protein Trace Urine Glucose (UA) Negative Urine Ketones Negative Urine Blood Negative Urine Nitrite Negative Urine Bilirubin Negative Urine Urobilinogen 0.2 Ur Leukocyte Esterase Negative 10/19/19 10/19/19 10/19/19 07:26 07:26 07:26 WBC 9.6 RBC 3.87 Hgb 12.2 Hct 37.3 MCV 96.5 H MCH 31.6 MCHC 32.8 RDW 13.0 Plt Count 350 MPV 8.2 Absolute Neuts (auto) 7.0 Neutrophils % 72.5 Lymphocytes % 14.4 Monocytes % 12.7 H Eosinophils % 0.0 Basophils % 0.4 PT with INR 24.5 H INR 2.22 H Sodium 137 Potassium 3.8 Chloride 102 Carbon Dioxide 27 Anion Gap 8 BUN 9.0 Creatinine 0.5 L Est GFR (CKD-EPI)AfAm 103.01 Est GFR (CKD-EPI)NonAf 88.88 Random Glucose 119 H Lactic Acid Calcium 8.9 Magnesium 1.5 L Total Bilirubin 1.0 AST 21 ALT 19 Alkaline Phosphatase 42 L C-Reactive Protein Total Protein 6.2 L Albumin 3.1 L Urine Color Urine Appearance Urine pH Urine Protein Urine Glucose (UA) Urine Ketones Urine Blood Urine Nitrite Urine Bilirubin Urine Urobilinogen Ur Leukocyte Esterase Atrial fibrillation with anterior infarct Imaging - Results Chest X-ray: Report Reviewed Cat Scan: Report Reviewed (Chest CT atelectasis/infiltrates) EKG: Report Reviewed Problem List - Problems (1) Acute bronchitis Code(s): J20.9 - ACUTE BRONCHITIS, UNSPECIFIED (2) Atrial fibrillation Code(s): I48.91 - UNSPECIFIED ATRIAL FIBRILLATION Qualifiers: (3) COPD exacerbation Code(s): J44.1 - CHRONIC OBSTRUCTIVE PULMONARY DISEASE W (ACUTE) EXACERBATION (4) Coronary artery disease Code(s): I25.10 - ATHSCL HEART DISEASE OF [place] CORONARY ARTERY W/O ANG PCTRS Qualifiers: Coronary Disease-Associated Artery/Lesion type: [place] artery [place] vs. transplanted heart: [place] heart Associated angina: with unstable angina Qualified Code(s): I25.110 - Atherosclerotic heart disease of [place] coronary artery with unstable angina pectoris (5) Hyperlipidemia Code(s): E78.5 - HYPERLIPIDEMIA, UNSPECIFIED (6) S/P coronary artery stent placement Code(s): Z95.5 - PRESENCE OF CORONARY ANGIOPLASTY IMPLANT AND GRAFT Assessment/Plan 1. Clinical presentation suggests URI 2. Permanent AF [id number] score of 5 on Warfarin 3. HTN 4. Hypercholesterolemia 5. COPD exacerbation 6. CAD s/p PCI/stent, angina pectoris PLAN: 1. Empiric antibiotics 2. Bronchodilator and O2 as needed 3. Continue current medications including Metoprolol Succinate 200 mg QD, Ramipril 2.5 mg QD and Digoxin 0.125 mg QD with caution 4. Continue Atorvastatin 20 mg QHS 5. Warfarin and keep INR 2-3 6. 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
[2019-10-19] MEDS: WARFARIN NA 5 MG TABLET (UD) PO SCH (17:53)
[2019-10-19] MEDS: DEXTROSE 5%-0.45% SALINE 1,000 ML IV SCH (17:53)
--- NOTE | 2019-10-19 17:55 | RAPID ---
Physical Examination Vital Signs: Subjective quality assurance monitor final alarmed. Patient seen and evaluated. Denied chest pain, palpitations, SOB. Was sitting on edge of bed eating dinner in no apparent distress. ECG done. Objective BP 131/67 (80) p90 RR 18 SpO2 100% on 2L NC Previously noted that on 10/14, ECG showed ST depressions II, III, AVF, V4, V5 , V6. On repeat ECG on 10/18, these changes were not evident. On today's ECG there are mild ST depressions V4, V5, V6. Assessment & Plan Concern for ischemic demand secondary to pneumonia/COPD Troponins, bmp, Mg ordered Keep K>4, Mg>2 Continue telemetry monitoring Titrate SpO2 >94% Spoke to Dr. Perrin, no change in plan. Labs: CBC, BMP 10/19/19 07:26 10/19/19 07:26
[2019-10-19 18:41] LABS: CALCIUM 8.8 mg/dl (8.5-10); CREATININE 0.5 mg/dl (0.55-1.3); MAGNESIUM 1.5 mg/dL (1.8-2.4); POTASSIUM 3.9 mmol/L (3.5-5.1)
[2019-10-19] MEDS: ATORVASTATIN CA 20 MG TABLET (FP) PO SCH (21:28)
[2019-10-19] MEDS: MELATONIN 5 MG TABLETS PO SCH (21:28)
--- NOTE | 2019-10-20 07:10 | PN ---
Progress Note (short form) - Note Progress Note: Chief Complaint: Events noted, notes reviewed, persistent dyspnea, persistent cough, denies any chest discomfort, remains in atrial fibrillation with intermittent rapid rates- rate control improved overnight History of Present Illness: Seen and examined on telemetry. Events noted, notes reviewed, persistent dyspnea , persistent cough, denies any chest discomfort, remains in atrial fibrillation with intermittent rapid rates- rate control improved overnight - Current Medication List Current Medications Acetaminophen (Tylenol -) 650 mg PO Q4H PRN PRN Reason: PAIN LEVEL 4 - 6 Last Admin: 10/17/19 13:25 Dose: 650 mg Acetaminophen (Ofirmev Injection -) 1,000 mg IVPB Q6H PRN PRN Reason: FEVER Albuterol/Ipratropium (Duoneb -) 1 amp NEB RQID [facility] Last Admin: 10/19/19 21:29 Dose: 1 amp Ascorbic Acid (Vitamin C -) 500 mg PO BID [facility] Last Admin: 10/19/19 21:28 Dose: 500 mg Atorvastatin Calcium (Lipitor -) 20 mg PO HS [facility] Last Admin: 10/19/19 21:28 Dose: 20 mg Budesonide/Formoterol Fumarate (Symbicort 160/4.5mcg -) 2 puff IH BID [facility] Last Admin: 10/19/19 21:29 Dose: 2 puff Calcium Carbonate (Os-Irvin 500mg -) 500 mg PO DAILY [facility] Last Admin: 10/19/19 10:42 Dose: 500 mg Cyanocobalamin (Vitamin B12 -) 100 mcg PO DAILY [facility] Last Admin: 10/19/19 10:42 Dose: 100 mcg Digoxin (Lanoxin -) 0.125 mg PO DAILY [facility] Last Admin: 10/19/19 10:42 Dose: 0.125 mg Docusate Sodium (Colace -) 100 mg PO DAILY [facility] Last Admin: 10/19/19 10:42 Dose: 100 mg Ceftriaxone Sodium 1 gm/ (Dextrose) 50 mls @ 100 mls/hr IVPB DAILY [facility]; Protocol Last Admin: 10/19/19 09:00 Dose: 100 mls/hr Azithromycin (Zithromax 500mg Ivpb (Pre-Docked)) 500 mg in 250 mls @ 250 mls/ hr IVPB DAILY [facility] Last Admin: 10/19/19 10:42 Dose: 250 mls/hr Dextrose/Sodium Chloride (D5-1/2ns -) 1,000 mls @ 75 mls/hr IV ASDIR [facility] Last Admin: 10/19/19 17:53 Dose: 75 mls/hr Melatonin (Melatonin) 5 mg PO HS [facility] Last Admin: 10/19/19 21:28 Dose: 5 mg Metoprolol Succinate (Toprol Xl -) 200 mg PO HS [facility] Last Admin: 10/19/19 21:28 Dose: 200 mg Non-Formulary Medication (Patient's Own Med) 1 each PO BID [facility] Pantoprazole Sodium (Protonix -) 40 mg PO DAILY [facility] Last Admin: 10/19/19 10:42 Dose: 40 mg Ramipril (Altace -) 2.5 mg PO DAILY [facility] Tiotropium [place] (Spiriva Respimat) 2 puff IH DAILY [facility] Last Admin: 10/19/19 10:42 Dose: 2 puff Warfarin Sodium (Coumadin -) 5 mg PO DAILY@1800 [facility] Last Admin: 10/19/19 17:53 Dose: 5 mg Review of Systems Constitutional: no symptoms reported Respiratory: reports: Cough and Sputum Production Cardiovascular: as noted above Gastrointestinal: denies Nausea, Vomiting, Diarrhea, Constipation or Abdominal Pain Genitourinary: no symptoms reported Musculoskeletal: as noted above Endocrine: no symptoms reported - Objective Vital Signs: Last Vital Signs Temp Pulse Resp BP Pulse Ox 98.4 F 93 H 18 116/61 98 10/20/19 06:00 10/20/19 06:00 10/20/19 06:00 10/20/19 06:00 10/20/19 07:00 Intake & Output 10/17/19 10/18/19 10/19/19 10/20/19 23:59 23:59 23:59 23:59 Intake Total [phone] Output Total 600 Balance 1390 600 980 Neck: Supple Negative JVD No Bruit Cardiovascular: S1 S2 Irregularly Irregular Respiratory: Diminished Breath Sounds at the Bases Bilateral Course Rhonchi Gastrointestinal: Soft Benign Normal Bowel Sounds Extremities: Negative Edema Labs: Troponin, BNP 10/19/19 10/19/19 18:46 23:25 Troponin I 0.03 0.03 CBC, BMP 10/19/19 07:26 10/19/19 18:09 Hepatic Panel Total Bilirubin 1.0 mg/dl (0.2-1) 10/19/19 07:26 Direct Bilirubin 0.2 mg/dL (0.0-0.2) 10/15/19 07:20 AST 21 U/L (15-37) 10/19/19 07:26 ALT 19 U/L (13-61) 10/19/19 07:26 Alkaline Phosphatase 42 U/L (45-117) L 10/19/19 07:26 Albumin 3.1 g/dl (3.4-5.0) L 10/19/19 07:26 INR, PTT INR 2.22 (0.82-1.09) H 10/19/19 07:26 Assessment/Plan ASSESSMENT: 1. Clinical presentation is consistent with acute bronchitis, exacerbation of COPD- clinically resolving 2. Permanent atrial fibrillation [id number] score of 5 on Warfarin, periods of rapid ventricular response 3. CAD post PCI/stent angina pectoris- clinically stable 4. HTN 5. Hypercholesterolemia PLAN: 1. Antibiotics, Bronchodilator and supplemental O2 as per primary team 2. Continue Toprol XL but consider 100 mg twice daily administration if heart rate remains elevated 3. Continue Ramipril and dose titration as needed 4. Continue Digoxin with caution and close monitoring of Digoxin level- EKG changes are most likely related to Digoxin effect as opposed to ischemia 5. Continue Lipitor 6. 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
[2019-10-20] MEDS: ALBUTEROL SO4 2.5/IPRATROPIUM 0.5 INH SOL 3 ML VIAL.NEB. NEB SCH ×4 (08:15→20:25)
[2019-10-20] MEDS: CEFTRIAXONE 1 GM in DEXTROSE 5%-WATER - 50 ML IVPB SCH (09:00)
[2019-10-20 09:01] LABS: BASO % 0.5 % (0-2.0); EOS % 0.1 % (0-4.5); HEMATOCRIT 39.4 % (32.4-45.2); HEMOGLOBIN 12.9 GM/dl (10.7-15.3); LYMPH % 14.6 % (8-40); MCH 31.9 pg (25.7-33.7); MCHC 32.7 g/dl (32.0-36.0); MEAN CELL VOLUME 97.3 fl (80-96); MEAN PLT VOLUME 8.8 fl (7.5-11.1); MONO % 11.7 % (3.8-10.2); NEUT % 73.1 % (42.8-82.8); PLATELET COUNT 425 K/MM3 (134-434); RBC 4.05 M/mm3 (3.60-5.2); RDW 12.9 % (11.6-15.6); WHITE BLOOD COUNT 9.6 K/mm3 (4.0-10.8)
[2019-10-20 09:17] LABS: ALBUMIN 3.6 g/dl (3.4-5.0); CALCIUM 9.5 mg/dl (8.5-10); CREATININE 0.5 mg/dl (0.55-1.3); MAGNESIUM 1.9 mg/dL (1.8-2.4); TOT PROT 7.3 g/dl (6.4-8.2)
[2019-10-20 09:48] LABS: INR 2.19 (0.82-1.09); PROTHROMBIN TIME (PATIENT) 24.2 SEC (10.2-13.0)
[2019-10-20] MEDS: PANTOPRAZOLE 40 MG TABLET (FP) PO SCH (10:03)
[2019-10-20] MEDS: ASCORBIC ACID 500 MG TABLET (FP) PO SCH ×2 (10:03→21:57)
[2019-10-20] MEDS: CALCIUM (OYSTER SHELL) 500 MG TABLET (FP) PO SCH (10:03)
[2019-10-20] MEDS: DOCUSATE SODIUM 100 MG CAPSULE (FP) PO SCH (10:03)
[2019-10-20] MEDS: CYANOCOBALAMIN (VITAMIN B-12) 100 MCG TABLET PO SCH (10:03)
[2019-10-20] MEDS: DIGOXIN 0.125 MG TABLET (FP) PO SCH (10:03)
[2019-10-20] MEDS: RAMIPRIL 2.5 MG CAPSULE (FP) PO SCH (10:03)
[2019-10-20] MEDS: AZITHROMYCIN IVPB 500 MG/250 ML BAG IVPB SCH (10:04)
[2019-10-20] MEDS: BUDESONIDE/FORMETEROL FUMARATE 160/4.5 mcg INHALER IH SCH ×2 (10:05→21:58)
[2019-10-20] MEDS: TIOTROPIUM BROMIDE 2.5 MCG (SPIRIVA) RESPIMAT INHALER IH SCH (10:05)
--- NOTE | 2019-10-20 12:28 | PN ---
Progress Note (short form) - Note Progress Note: PULMONARY SUBJECTIVE IMPROVEMENT VSS/AFEBRILE ANOREXIA/WEAKNESS LESS CT CHEST :NOTED NO LARGE CONSOLIDATIONS/EFFUSIONS NOTED SEGMENTAL ATELECTASIS NOTED VS LINEAR INFILTRATE LEFT MID LUNG ZONE NOTED PALE/ANICTERIC B/L RHONCHI S1S2 IRREG BS+ NO EDEMA LABS/MEDS/NOTES REVIEWED PCR VIRAL SEROLOGY PENDING (1) Acute bronchitis Code(s): J20.9 - ACUTE BRONCHITIS, UNSPECIFIED (2) Atrial fibrillation Code(s): I48.91 - UNSPECIFIED ATRIAL FIBRILLATION Qualifiers: (3) COPD exacerbation Code(s): J44.1 - CHRONIC OBSTRUCTIVE PULMONARY DISEASE W (ACUTE) EXACERBATION (4) Coronary artery disease Code(s): I25.10 - ATHSCL HEART DISEASE OF [place] CORONARY ARTERY W/O ANG PCTRS Qualifiers: Coronary Disease-Associated Artery/Lesion type: [place] artery [place] vs. transplanted heart: [place] heart Associated angina: with unstable angina Qualified Code(s): I25.110 - Atherosclerotic heart disease of [place] coronary artery with unstable angina pectoris (5) Hyperlipidemia Code(s): E78.5 - HYPERLIPIDEMIA, UNSPECIFIED Assessment/Plan CHEST PT/O2/BRONCHODILATORS/IV ANTIBIOTICS/IV FLUIDS ANTICOAGULATION/CONTINUE HOME MEDS CHECK RESP VIRAL PCR/ ID EVALUATION everett BERKOWITZ MD Problem List - Problems (1) Acute bronchitis Code(s): J20.9 - ACUTE BRONCHITIS, UNSPECIFIED (2) Atrial fibrillation Code(s): I48.91 - UNSPECIFIED ATRIAL FIBRILLATION Qualifiers: (3) COPD exacerbation Code(s): J44.1 - CHRONIC OBSTRUCTIVE PULMONARY DISEASE W (ACUTE) EXACERBATION (4) Coronary artery disease Code(s): I25.10 - ATHSCL HEART DISEASE OF [place] CORONARY ARTERY W/O ANG PCTRS Qualifiers: Coronary Disease-Associated Artery/Lesion type: [place] artery [place] vs. transplanted heart: [place] heart Associated angina: with unstable angina Qualified Code(s): I25.110 - Atherosclerotic heart disease of [place] coronary artery with unstable angina pectoris (5) Hyperlipidemia Code(s): E78.5 - HYPERLIPIDEMIA, UNSPECIFIED
--- NOTE | 2019-10-20 16:23 | PN ---
Documentation entered by Britta Delacruz SCRIBE, acting as scribe for Michelle Thomas NP. Physical Exam: SUBJECTIVE: Patient seen and examined. Patient states feeling much stronger. OBJECTIVE: Vital Signs Period Temp Pulse Resp BP Sys/[place] Pulse Ox Last 24 Hr 98.4 F-99.2 F 84-96 17-18 103-131/57-67 97-100 GENERAL: A&Ox3. In no acute distress. LUNGS: Fine bibasilar crackles. HEART: Irregular rate and rhythm, S1, S2 ABDOMEN: Soft, nontender, nondistended. EXTREMITIES: 2+ pulses, warm, well-perfused, no edema. NEUROLOGICAL: Cranial nerves II through XII grossly intact. Normal speech, gait not observed. Laboratory Results - last 24 hr 10/19/19 10/19/19 10/19/19 18:09 18:46 23:25 WBC RBC Hgb Hct MCV MCH MCHC RDW Plt Count MPV Absolute Neuts (auto) Neutrophils % Lymphocytes % Monocytes % Eosinophils % Basophils % PT with INR INR Sodium 133 L Potassium 3.9 Chloride 99 Carbon Dioxide 29 Anion Gap 5 L BUN 8.0 Creatinine 0.5 L Est GFR (CKD-EPI)AfAm 103.01 Est GFR (CKD-EPI)NonAf 88.88 Random Glucose 145 H Calcium 8.8 Magnesium 1.5 L Total Bilirubin AST ALT Alkaline Phosphatase Troponin I 0.03 0.03 Total Protein Albumin 10/20/19 10/20/19 10/20/19 08:30 08:30 08:30 WBC 9.6 RBC 4.05 Hgb 12.9 Hct 39.4 MCV 97.3 H MCH 31.9 MCHC 32.7 RDW 12.9 Plt Count 425 MPV 8.8 Absolute Neuts (auto) 7.1 Neutrophils % 73.1 Lymphocytes % 14.6 Monocytes % 11.7 H Eosinophils % 0.1 Basophils % 0.5 PT with INR 24.2 H INR 2.19 H Sodium 137 Potassium 4.0 Chloride 99 Carbon Dioxide 28 Anion Gap 10 BUN 7.0 Creatinine 0.5 L Est GFR (CKD-EPI)AfAm 103.01 Est GFR (CKD-EPI)NonAf 88.88 Random Glucose 93 Calcium 9.5 Magnesium 1.9 Total Bilirubin 1.0 AST 24 ALT 23 Alkaline Phosphatase 53 D Troponin I Total Protein 7.3 Albumin 3.6 Active Medications Generic Name Dose Route Start Last Admin Trade Name Freq PRN Reason Stop Dose Admin Acetaminophen 650 mg 10/17/19 12:09 10/17/19 13:25 Tylenol - PO 650 mg Q4H PRN Administration PAIN LEVEL 4 - 6 Acetaminophen 1,000 mg 10/18/19 17:43 Ofirmev Injection - IVPB Q6H PRN FEVER Albuterol/Ipratropium 1 amp 10/18/19 20:00 10/19/19 21:29 Duoneb - NEB 1 amp RQID JOE Administration Ascorbic Acid 500 mg 10/15/19 10:00 10/19/19 21:28 Vitamin C - PO 500 mg BID JOE Administration Atorvastatin Calcium 20 mg 10/15/19 22:00 10/19/19 21:28 Lipitor - PO 20 mg HS JOE Administration Budesonide/Formoterol Fumarate 2 puff 10/16/19 22:00 10/19/19 21:29 Symbicort 160/4.5mcg - IH 2 puff BID JOE Administration Calcium Carbonate 500 mg 10/15/19 10:00 10/19/19 10:42 Os-Irvin 500mg - PO 500 mg DAILY JOE Administration Cyanocobalamin 100 mcg 10/15/19 10:00 10/19/19 10:42 Vitamin B12 - PO 100 mcg DAILY JOE Administration Digoxin 0.125 mg 10/15/19 10:00 10/19/19 10:42 Lanoxin - PO 0.125 mg DAILY JOE Administration Docusate Sodium 100 mg 10/16/19 10:00 10/19/19 10:42 Colace - PO 100 mg DAILY JOE Administration Ceftriaxone Sodium 1 gm/ 50 mls @ 100 mls/hr 10/18/19 18:00 10/19/19 09:00 Dextrose IVPB 100 mls/hr DAILY JOE Administration Protocol Azithromycin 500 mg in 250 mls @ 250 mls/hr 10/18/19 18:00 10/19/19 10:42 Zithromax 500mg Ivpb (Pre-Docked) IVPB 250 mls/hr DAILY JOE Administration Dextrose/Sodium Chloride 1,000 mls @ 75 mls/hr 10/18/19 17:30 10/19/19 17:53 D5-1/2ns - IV 75 mls/hr ASDIR JOE Administration Melatonin 5 mg 10/15/19 22:00 10/19/19 21:28 Melatonin PO 5 mg HS JOE Administration Metoprolol Succinate 200 mg 10/15/19 22:00 10/19/19 21:28 Toprol Xl - PO 200 mg HS JOE Administration Non-Formulary Medication 1 each 10/18/19 22:00 Patient's Own Med PO BID JOE Pantoprazole Sodium 40 mg 10/15/19 10:00 10/19/19 10:42 Protonix - PO 40 mg DAILY JOE Administration Ramipril 2.5 mg 10/20/19 10:00 Altace - PO DAILY JOE Tiotropium [place] 2 puff 10/15/19 10:00 10/19/19 10:42 Spiriva Respimat IH 2 puff DAILY JOE Administration Warfarin Sodium 5 mg 10/18/19 09:46 10/19/19 17:53 Coumadin - PO 5 mg DAILY@1800 JOE Administration ASSESSMENT/PLAN: This is an 84 year-old female with a PMH significant for HTN, HLD, CAD s/p stent 2005, afib on coumadin, and OA with chronic back pain. Admitted for sepsis likely secondary to CAP, COPD exacerbation. Sepsis secondary to multilobar community acquired pneumonia Acute on chronic COPD --afebrile >24 hours, leukocytosis resolved, lactic acid wnl --CT chest: infiltrates within the lingula and in the RUL --rapid flu negative; resp virus panel pending; cultures negative to date, urine pna Ag negtive --continue ceftriaxone (day #6), azithro (day #3) --duonebs q6h scheduled --continue Symbicort, Spiriva --titrate SpO2 >95% Mediastinal opacity --5.4 x 4 x 2cm oblong-shaped anterior mediastinal opacity, soft tissue lesion v. cyst with internal debris --will try to get previous CT imaging for comparison --radiologist suggests pulmonary input in regards to appropriate follow-up --pulmonary following, would appreciate commenting on this Atrial fibrillation with RVR --rate to 120 on admission, better controlled in 90s --continue Toprol XL, digoxin (monitor for dig toxicity while on macrolide - dig level wnl on 10/16, 10/20, repeat on 10/22) --duonebs q6h scheduled --INR 1.45 on admission, today 2.19; dose coumadin 5mg tonight; repeat INR in am ST changes --10/14 ECG: ST depressions II, III, AVF, V4, V5, V6; not evident on subsequent ECGs --troponins neg x 3 --telemetry monitoring --cardiology consult: EKG changes are most likely related to dig effect as opposed to ischemia Hypertension --normotensive --continue ToprolXL, Ramipril Hyperlipidemia --continue Lipitor GERD --protonix Ulcerative colitis --continue mesalamine 1.2g BID - patient's own med Hypomagnesemia --resolved FEN --Fluids: PO intake adequate --Electrolytes: replete as indicated --Nutrition: low sodium Physical therapy DVT Prophylaxis: INR therapeutic, continue coumadin Dispo: continues to require inpatient care. Full code. Visit type - Emergency Visit Emergency Visit: Yes ED Registration Date: 10/15/19 Care time: The patient presented to the Emergency Department on the above date and was hospitalized for further evaluation of their emergent condition. - New Patient This patient is new to me today: No - Critical Care Critical Care patient: No Michelle Thomas COLLECTION SYSTEMS MODELER: This documentation has been prepared by the Jayme suero Maria, SCRIBE, under my direction and personally reviewed by me in its entirety. I confirm that the documentation accurately reflects all work, treatment, procedures, and medical decision making performed by me.
[2019-10-20] MEDS ORDERED: WARFARIN NA 3 MG TABLET PO SCH (18:00)
[2019-10-20] MEDS ORDERED: WARFARIN NA 5 MG TABLET (UD) PO SCH (18:00)
[2019-10-20] MEDS: ATORVASTATIN CA 20 MG TABLET (FP) PO SCH (21:57)
[2019-10-20] MEDS: MELATONIN 5 MG TABLETS PO SCH (21:57)
[2019-10-21] MEDS: ACETAMINOPHEN 325 MG TABLET (FP) PO PRN (00:41)
[2019-10-21] MEDS: ALBUTEROL SO4 2.5/IPRATROPIUM 0.5 INH SOL 3 ML VIAL.NEB. NEB SCH ×3 (07:56→12:40)
[2019-10-21] MEDS: CEFTRIAXONE 1 GM in DEXTROSE 5%-WATER - 50 ML IVPB SCH ×2 (07:57→09:31)
[2019-10-21] MEDS: AZITHROMYCIN IVPB 500 MG/250 ML BAG IVPB SCH (09:24)
[2019-10-21] MEDS: DIGOXIN 0.125 MG TABLET (FP) PO SCH (09:24)
[2019-10-21] MEDS: RAMIPRIL 2.5 MG CAPSULE (FP) PO SCH (09:25)
[2019-10-21] MEDS: ASCORBIC ACID 500 MG TABLET (FP) PO SCH (09:25)
[2019-10-21] MEDS: CYANOCOBALAMIN (VITAMIN B-12) 100 MCG TABLET PO SCH (09:25)
[2019-10-21] MEDS: CALCIUM (OYSTER SHELL) 500 MG TABLET (FP) PO SCH (09:25)
[2019-10-21] MEDS: DOCUSATE SODIUM 100 MG CAPSULE (FP) PO SCH (09:25)
[2019-10-21] MEDS: BUDESONIDE/FORMETEROL FUMARATE 160/4.5 mcg INHALER IH SCH (09:26)
[2019-10-21] MEDS: PANTOPRAZOLE 40 MG TABLET (FP) PO SCH (09:27)
[2019-10-21] MEDS: TIOTROPIUM BROMIDE 2.5 MCG (SPIRIVA) RESPIMAT INHALER IH SCH (09:27)
[2019-10-21 14:01] VITALS: BP 100/56; PULSE 119; TEMP 97.7
--- NOTE | 2019-10-21 14:35 | DS ---
Documentation entered by Britta Delacruz SCRIBE, acting as scribe for Michelle Thomas NP. Physical Exam: SUBJECTIVE: Patient seen and examined at bedside. OBJECTIVE: Vital Signs Period Temp Pulse Resp BP Sys/[place] Pulse Ox Last 24 Hr 97.5 F-98.5 F 76-100 17-19 98-109/50-65 94-100 PHYSICAL EXAM GENERAL: A&Ox3. In no acute distress. LUNGS: CTA. HEART: Irregular rate and rhythm, S1, S2 ABDOMEN: Soft, nontender, nondistended. EXTREMITIES: 2+ pulses, warm, well-perfused, no edema. NEUROLOGICAL: Cranial nerves II through XII grossly intact. Normal speech, gait not observed. LABS Laboratory Results - last 24 hr 10/20/19 08:20 Digoxin 0.83 HOSPITAL COURSE: Date of Admission:10/15/19 Date of Discharge: 10/21/19 Pre-Hospital Course This is an 84-year-old female with a PMH significant for HTN, HLD, afib on coumadin, CAD s/p D1 stent 2005, and COPD. Brought in by her daughters for evaluation of shortness of breath x2 days. Patient has a productive sounding cough and was noted to be dyspneic, unable to speak full sentences. Patient denied fever. Denied chest pain, nausea, vomiting, diarrhea. ED Course (1) Chest x-ray shows COPD but no acute pathology (2) EKG shows atrial fibrillation (3)Trop <0.03 Subsequent Hospital Course This is an 84 year-old female with a PMH significant for HTN, HLD, CAD s/p stent 2005, afib on coumadin, and COPD. Admitted for sepsis likely secondary to CAP, COPD exacerbation. Sepsis secondary to multilobar community acquired pneumonia Acute on chronic COPD --CT chest: infiltrates within the lingula and in the RUL --rapid flu negative; cultures negative --treated with ceftriaxone x 7 days, azithro, duonebs q6h scheduled, Symbicort, Spiriva Mediastinal opacity --5.4 x 4 x 2cm oblong-shaped anterior mediastinal opacity, soft tissue lesion v. cyst with internal debris --radiologist suggested pulmonary input in regards to appropriate follow-up --pulmonary followed daily --outpatient followup with Dr. Rapp Atrial fibrillation with RVR --rate to 120 on admission, better controlled in 90s --continued Toprol XL, digoxin --duonebs q6h scheduled --INR 1.45 on admission, now therapeutic; discharge on 4mg daily ST changes --10/14 ECG: ST depressions II, III, AVF, V4, V5, V6; not evident on subsequent ECGs --troponins neg x 3 --telemetry monitoring --cardiology consult: EKG changes are most likely related to dig effect as opposed to ischemia Hypertension --normotensive --continued ToprolXL, Ramipril Hyperlipidemia --continued Lipitor GERD --protonix Minutes to complete discharge: 35 Discharge Summary Problems reviewed: Yes Reason For Visit: ACUTE EXACERBATION OF COPD, AFIB, BRONCHITIS Current Active Problems Acute bronchitis (Acute) Atrial fibrillation (Acute) Bronchitis (Acute) COPD exacerbation (Acute) Condition: Improved - Instructions Diet, Activity, Other Instructions: Two prescriptions have been sent to your pharmacy. One is for azithromycin. You have one remaining dose, take it tomorrow.The other is for warfarin 2mg tablets. Based on your INR readings during your hospital stay it is recommended you take 4mg daily for one week. Then have your INR checked and have either Dr. Rapp or Dr. Conner modify your dose as indicated. Referrals: Melvin Rapp MD [Primary Care Provider] - Disposition: HOME - Home Medications Comprehensive Discharge Medication List: Ambulatory Orders Calcium [Hi-Irvin] 500 mg PO DAILY 02/27/15 Cyanocobalamin [Vitamin B12 -] 100 mcg PO DAILY 02/27/15 Acetaminophen [Tylenol] 650 mg PO TID PRN 09/03/19 Ascorbate Calcium [Vitamin C] 500 mg PO BID 09/03/19 Atorvastatin Ca [Lipitor] 20 mg PO HS 09/03/19 Digoxin [Lanoxin -] 0.125 mg PO DAILY 09/03/19 Melatonin 5 mg PO HS 09/03/19 Metoprolol Succinate [Toprol Xl] 200 mg PO HS 09/03/19 Ramipril [Altace] 2.5 mg PO DAILY 09/03/19 Warfarin Sodium [Coumadin] 2 mg PO DAILY 09/03/19 This patient is new to me today: No Emergency Visit: Yes ED Registration Date: 10/15/19 Care time: The patient presented to the Emergency Department on the above date and was hospitalized for further evaluation of their emergent condition. Critical Care patient: No - Discharge Referral Referred to [facility] Michelle Garcia, SARAVANAN: This documentation has been prepared by the Jayme suero Maria, SCRIBE, under my direction and personally reviewed by me in its entirety. I confirm that the documentation accurately reflects all work, treatment, procedures, and medical decision making performed by me.
--- NOTE | 2019-10-22 13:26 | EKG ---
Test Reason : Blood Pressure : / mmHG Vent. Rate : 091 BPM Atrial Rate : 101 BPM P-R Int : 000 ms QRS Dur : 078 ms QT Int : 362 ms P-R-T Axes : 000 071 255 degrees QTc Int : 445 ms POOR DATA QUALITY, INTERPRETATION MAY BE ADVERSELY AFFECTED ATRIAL FIBRILLATION ANTERIOR INFARCT (CITED ON OR BEFORE 19-OCT-2019) ABNORMAL ECG WHEN COMPARED WITH ECG OF 19-OCT-2019 06:05, NONSPECIFIC T WAVE ABNORMALITY, WORSE IN INFERIOR LEADS Confirmed by YASHIRA ALVARADO MD ([id number]) on 10/22/2019 1:26:08 PM Referred By: SARAVANAN HOOK Confirmed By:YASHIRA ALVARADO MD
== END 2019-10-21 15:33 | disposition home or self-care (01) | DRG 190 ==
LOC: FER 22:35 → FM/S 10-15 00:07 → UNDOADMIN 10-15 00:23
PROVIDERS: ADMIT Internal Medicine; ATTEND Nurse Practitioner Acute Care
DX: J44.1 Chronic obstructive pulmonary disease with (acute) exacerbation (principal); A41.89 Other specified sepsis; J18.9 Pneumonia, unspecified organism; K51.90 Ulcerative colitis, unspecified, without complications; J98.11 Atelectasis; I48.21 Permanent atrial fibrillation; I25.119 Atherosclerotic heart disease of native coronary artery with unspecified angina pectoris; J44.0 Chronic obstructive pulmonary disease with (acute) lower respiratory infection; E78.5 Hyperlipidemia, unspecified; I48.91 Unspecified atrial fibrillation; K21.9 Gastro-esophageal reflux disease without esophagitis; J20.9 Acute bronchitis, unspecified; E83.42 Hypomagnesemia; R50.9 Fever, unspecified; R63.0 Anorexia; Z68.22 Body mass index [BMI] 22.0-22.9, adult; Z79.01 Long term (current) use of anticoagulants
CPT/HCPCS: 36415; 71045-TC-FY; 71250-TC; 80048; 80053; 80076; 80162; 81003; 82550; 82553; 83605; 83735; 84484; 85025; 85027; 85610; 86140; 87040; 87070; 87086; 87205; 87633; 87804; 87899; 93005; 94640; 94761; 97116-GP; 97162-GP; 99283-25

== ENCOUNTER 2020-09-17 12:41 | Emergency (ER) | payer OTHER ==
[2020-09-17 12:47] VITALS: BP 132/79; PULSE 88; TEMP 97.4; BMI 23.8
[2020-09-17] MEDS ORDERED: DIPHTH,PERTUSS(ACELL),TET 0.5 ML DISP.SYRIN IM ONE ×2 (13:00→13:21)
== END 2020-09-17 13:58 | disposition home or self-care (01) ==
LOC: FER 12:41
PROC: 3E0234Z Introduction of Serum, Toxoid and Vaccine into Muscle, Percutaneous Approach (ICD-10-PCS; principal; 2020-09-17)
DX: S09.90XA Unspecified injury of head, initial encounter (principal); W19.XXXA Unspecified fall, initial encounter
CPT/HCPCS: 70450-TC; 72125-TC; 90715; 99284-25

== ENCOUNTER 2021-06-19 10:58 | Emergency (ER) | payer OTHER, MEDICARE ==
[2021-06-19 11:07] VITALS: BMI 23.2
[2021-06-19 12:25] LABS: BASO % 0.5 % (0-2.0); EOS % 1.6 % (0-4.5); HEMATOCRIT 35.8 % (32.4-45.2); HEMOGLOBIN 12.2 GM/dL (10.7-15.3); LYMPH % 16.5 % (8-40); MCH 33.3 pg (25.7-33.7); MCHC 34.1 g/dl (32.0-36.0); MEAN CELL VOLUME 97.7 fl (80-96); MEAN PLT VOLUME 7.5 fl (7.5-11.1); MONO % 9.5 % (3.8-10.2); NEUT % 71.9 % (42.8-82.8); PLATELET COUNT 268 10^3/uL (134-434); RBC 3.66 M/mm3 (3.60-5.2); RDW 13.3 % (11.6-15.6); WHITE BLOOD COUNT 7.7 K/mm3 (4.0-10.0)
[2021-06-19 12:32] LABS: INR 1.75 (0.83-1.09); PROTHROMBIN TIME (PATIENT) 21.2 SEC (9.7-13.0)
[2021-06-19 12:45] LABS: CHLORIDE 108 mmol/L (98-107); SODIUM 140 mmol/L (136-145)
[2021-06-19 12:48] LABS: ANION GAP 5 MMOL/L (8-16); CALCIUM 9.3 mg/dL (8.5-10.1); CO2 27 mmol/L (21-32)
[2021-06-19 12:49] LABS: BLOOD UREA NITROGEN 15.4 mg/dL (7-18); GLUCOSE,RANDOM 93 mg/dL (74-106)
[2021-06-19 12:51] LABS: SGOT/AST 20 U/L (15-37); SGPT/ALT 19 U/L (13-61)
[2021-06-19 12:52] LABS: CREATININE 0.7 mg/dL (0.55-1.3)
[2021-06-19 12:53] LABS: BILIRUBIN,TOTAL 1.2 mg/dL (0.2-1); TOT PROT 6.7 g/dl (6.4-8.2)
[2021-06-19 12:54] LABS: ALK PHOS 47 U/L (45-117)
[2021-06-19 13:12] LABS: ALBUMIN 3.7 g/dl (3.4-5.0)
[2021-06-19 14:57] VITALS: BP 135/87; PULSE 95; TEMP 98
== END 2021-06-19 14:57 | disposition home or self-care (01) ==
LOC: JER 10:58
DX: S09.90XA Unspecified injury of head, initial encounter (principal); W06.XXXA Fall from bed, initial encounter
CPT/HCPCS: 36415; 70450-TC; 70486-TC; 80053; 84484; 85025; 85610; 85730; 93005; 93010; 99285-25

== ENCOUNTER 2022-04-12 14:45 | Emergency (ER) | payer OTHER, MEDICARE ==
[2022-04-12 15:53] VITALS: TEMP 97.2; BMI 21.9
[2022-04-12] MEDS ORDERED: BEBTELOVIMAB (EUA) 175 MG/2 ML VIAL IVPUSH ONE (17:17)
[2022-04-12] MEDS ORDERED: ACETAMINOPHEN 500 MG TABLET (FP) PO ONE (17:18)
[2022-04-12] MEDS ORDERED: ACETAMINOPHEN 500 MG TABLET (FP) ONE (17:59)
[2022-04-12 18:36] VITALS: BP 117/61; PULSE 102
== END 2022-04-12 19:02 | disposition home or self-care (01) ==
LOC: JCOVINFU 14:45
PROC: 3E033GC Introduction of Other Therapeutic Substance into Peripheral Vein, Percutaneous Approach (ICD-10-PCS; principal; 2022-04-12)
DX: U07.1 COVID-19 (principal)
CPT/HCPCS: 99284-25; M0222; Q0222

== ENCOUNTER 2022-07-27 16:26 | Inpatient (IN) | payer OTHER, MEDICARE ==
[2022-07-27 17:24] LABS: HEMATOCRIT 40.8 % (32.4-45.2); INR 1.31 (0.83-1.09); MCH 33.6 pg (25.7-33.7); MCHC 34.4 g/dl (32.0-36.0); MEAN CELL VOLUME 97.6 fl (80-96); MEAN PLT VOLUME 7.5 fl (7.5-11.1); PROTHROMBIN TIME (PATIENT) 15.1 SEC (9.7-13.0); RBC 4.18 10^6/uL (3.60-5.2); RDW 13.9 % (11.6-15.6); WHITE BLOOD COUNT 5.5 10^3/uL (4.0-10.8)
[2022-07-27 17:27] LABS: ACTIVATED PTT 35.3 SECONDS (25.2-36.5)
[2022-07-27 17:28] LABS: ALBUMIN 4.2 g/dl (3.4-5.0); BILIRUBIN,TOTAL 1.1 mg/dl (0.2-1); CALCIUM 9.7 mg/dl (8.5-10); CREATININE 0.7 mg/dl (0.55-1.3); TOT PROT 7.2 g/dl (6.4-8.2)
[2022-07-27 17:33] LABS: PLATELET ESTIMATE ADEQUATE
[2022-07-27 21:17] VITALS: BMI 22.6
[2022-07-28 08:54] LABS: CALCIUM 9.3 mg/dl (8.5-10); CREATININE 0.6 mg/dl (0.55-1.3)
[2022-07-28] MEDS: PANTOPRAZOLE SODIUM 40 MG VIAL IVPUSH SCH (09:49)
[2022-07-28 09:51] LABS: HEMATOCRIT 39.7 % (32.4-45.2); HEMOGLOBIN 13.5 G/dL (10.7-15.3); MCH 33.3 pg (25.7-33.7); MCHC 33.9 g/dl (32.0-36.0); MEAN CELL VOLUME 98.3 fl (80-96); MEAN PLT VOLUME 7.8 fl (7.5-11.1); PLATELET COUNT 269.8 10^3/uL (134-434); RBC 4.04 10^6/uL (3.60-5.2); RDW 13.4 % (11.6-15.6); WHITE BLOOD COUNT 4.9 10^3/uL (4.0-10.8)
[2022-07-28 10:21] LABS: PLATELET ESTIMATE ADEQUATE
[2022-07-28] MEDS ORDERED: ALBUTEROL SO4 HFA INHALER IH PRN (11:29)
[2022-07-28] MEDS ORDERED: ACETAMINOPHEN 325 MG TABLET (FP) PO PRN ×2 (11:29→12:47)
[2022-07-28] MEDS: RAMIPRIL 2.5 MG CAPSULE PO SCH (12:27)
[2022-07-28] MEDS: DIGOXIN 0.125 MG TABLET PO SCH (12:28)
[2022-07-28] MEDS: TIOTROPIUM BROMIDE 2.5 MCG (SPIRIVA) RESPIMAT INHALER IH SCH (13:51)
[2022-07-28] MEDS: ASCORBIC ACID 500 MG TABLET (FP) PO SCH (21:08)
[2022-07-28] MEDS: BUDESONIDE/FORMETEROL FUMARATE 80/4.5 mcg INHALER IH SCH (21:17)
[2022-07-28] MEDS ORDERED: MESALAMINE 1.2 GM PO SCH (22:00)
[2022-07-28] MEDS ORDERED: BUDESONIDE/FORMETEROL FUMARATE 80/4.5 mcg INHALER IH SCH (22:00)
[2022-07-28] MEDS ORDERED: ATORVASTATIN CA 20 MG TABLET (FP) PO SCH (22:00)
[2022-07-29 08:15] VITALS: RESP 20
[2022-07-29] MEDS ORDERED: CYANOCOBALAMIN (VITAMIN B-12) 100 MCG TABLET PO SCH (10:00)
[2022-07-29] MEDS: PANTOPRAZOLE SODIUM 40 MG VIAL IVPUSH SCH (10:07)
[2022-07-29] MEDS: RAMIPRIL 2.5 MG CAPSULE PO SCH (10:07)
[2022-07-29] MEDS: ASCORBIC ACID 500 MG TABLET (FP) PO SCH (10:09)
[2022-07-29] MEDS: DIGOXIN 0.125 MG TABLET PO SCH (10:10)
[2022-07-29] MEDS: TIOTROPIUM BROMIDE 2.5 MCG (SPIRIVA) RESPIMAT INHALER IH SCH (10:10)
[2022-07-29] MEDS: BUDESONIDE/FORMETEROL FUMARATE 80/4.5 mcg INHALER IH SCH (10:10)
[2022-07-29 14:03] VITALS: BP 110/64; PULSE 94; TEMP 98.5
== END 2022-07-29 15:43 | disposition home or self-care (01) | DRG 378 ==
LOC: FER 16:26 → FM/S 18:44
PROVIDERS: ADMIT Internal Medicine
DX: K92.2 Gastrointestinal hemorrhage, unspecified (principal); D68.32 Hemorrhagic disorder due to extrinsic circulating anticoagulants; I48.21 Permanent atrial fibrillation; J44.1 Chronic obstructive pulmonary disease with (acute) exacerbation; I25.10 Atherosclerotic heart disease of native coronary artery without angina pectoris; J44.9 Chronic obstructive pulmonary disease, unspecified; E78.5 Hyperlipidemia, unspecified; K21.9 Gastro-esophageal reflux disease without esophagitis; M10.9 Gout, unspecified; Z79.01 Long term (current) use of anticoagulants; I25.2 Old myocardial infarction; I12.9 Hypertensive chronic kidney disease with stage 1 through stage 4 chronic kidney disease, or unspecified chronic kidney disease; N18.9 Chronic kidney disease, unspecified; R31.9 Hematuria, unspecified; T45.515A Adverse effect of anticoagulants, initial encounter
CPT/HCPCS: 36415; 71045-TC-FY; 80048; 80053; 81003; 82272; 84484; 85025; 85027; 85610; 85730; 86850; 86900; 86901; 93005; 99285-25; C9803-CS; U0003; U0005

== ENCOUNTER 2023-06-22 12:48 | Inpatient (IN) | payer OTHER, MEDICARE ==
[2023-06-22] MEDS ORDERED: SODIUM CHLORIDE 0.9% 500 ML INFUS.BAG IV ONE (13:52)
[2023-06-22 14:08] LABS: HEMOGLOBIN 13.9 G/dL (10.7-15.3); MCH 32.1 pg (25.7-33.7); MCHC 33.1 g/dl (32.0-36.0); MEAN PLT VOLUME 8.4 fl (7.5-11.1); PLATELET COUNT 274.3 10^3/uL (134-434); RBC 4.33 10^6/uL (3.60-5.2); RDW 13.9 % (11.6-15.6); WHITE BLOOD COUNT 6.2 10^3/uL (4.0-10.8)
[2023-06-22 14:14] LABS: INR 1.44 (0.83-1.09); PROTHROMBIN TIME (PATIENT) 16.7 SEC (9.7-13.0)
[2023-06-22 14:17] LABS: ACTIVATED PTT 34.9 SECONDS (25.2-36.5)
[2023-06-22 14:31] LABS: ALBUMIN 4.3 g/dl (3.4-5.0); BLOOD UREA NITROGEN 14.3 mg/dl (7-18); CALCIUM 9.7 mg/dl (8.5-10.1); CREATININE 0.8 mg/dl (0.6-1.3); MAGNESIUM 1.5 mg/dL (1.8-2.4); PHOSPHOROUS 3.13 (2.5-4.9); POTASSIUM 3.9 mmol/L (3.5-5.1); SGOT/AST 22.1 U/L (15-37); SGPT/ALT 15.5 U/L (7-52)
[2023-06-22] MEDS ORDERED: MAGNESIUM SULF 50% (8.12 MEQ/2 ML-1 GM VIAL) IVPB ONE (14:46)
[2023-06-22] MEDS ORDERED: MAGNESIUM SULFATE IN WATER 2 GM/50 ML IVPB IVPB ONE (14:52)
[2023-06-22 15:06] LABS: VENOUS BASE EXCESS 2.7 mmol/L (-2-2); VENOUS O2 SATURATION 47.4 % (70-80); VENOUS PCO2 53.4 mmHg (38-52); VENOUS PH 7.354 (7.310-7.410)
[2023-06-22 15:16] LABS: BILIRUBIN,TOTAL 1.3 mg/dL (0.2-1)
[2023-06-22] MEDS ORDERED: ASPIRIN 325 MG TABLET PO ONE (15:47)
[2023-06-22] MEDS ORDERED: ASPIRIN 325 MG TABLET ONE (15:52)
[2023-06-22] MEDS ORDERED: DIGOXIN IMMUNE FAB 40 MG/4 ML VIAL IVPB ONE ×2 (15:57→16:13)
[2023-06-22 17:24] VITALS: BMI 22.2
[2023-06-22 19:55] LABS: EPITHELIAL CELLS FEW /hpf
[2023-06-22 19:56] LABS: URINE MUCUS 1+
[2023-06-23] MEDS ORDERED: ACETAMINOPHEN 325 MG TABLET (FP) PO PRN (06:11)
[2023-06-23] MEDS: DEXAMETHASONE 4 MG TABLET (FP) PO SCH ×2 (07:47→09:40)
[2023-06-23] MEDS ORDERED: REMDESIVIR 200 MG in SODIUM CHLORIDE 250 ML IVPB ONE (08:00)
[2023-06-23 09:08] LABS: HEMATOCRIT 35.2 % (32.4-45.2); HEMOGLOBIN 11.7 GM/dL (10.7-15.3); MCH 31.9 pg (25.7-33.7); MCHC 33.4 g/dl (32.0-36.0); MEAN CELL VOLUME 95.6 fl (80-96); MEAN PLT VOLUME 8.6 fl (7.5-11.1); PLATELET COUNT 236 10^3/uL (134-434); RBC 3.68 M/mm3 (3.60-5.2); RDW 13.2 % (11.6-15.6); WHITE BLOOD COUNT 5.3 K/mm3 (4.0-10.0)
[2023-06-23 09:38] LABS: CREATININE 0.6 mg/dL (0.55-1.3)
[2023-06-23 09:39] LABS: BILIRUBIN,TOTAL 0.9 mg/dL (0.2-1); TOT PROT 6.2 g/dl (6.4-8.2)
[2023-06-23] MEDS: LOSARTAN POTASSIUM 25 MG TABLET PO SCH (09:40)
[2023-06-23] MEDS: PANTOPRAZOLE 40 MG TABLET PO SCH (09:40)
[2023-06-23] MEDS: SERTRALINE HCL 25 MG TABLET (FP) PO SCH (09:40)
[2023-06-23] MEDS: FAMOTIDINE 20 MG TABLET PO SCH (09:40)
[2023-06-23] MEDS: ALBUTEROL SO4 HFA INHALER IH SCH ×4 (09:41→20:15)
[2023-06-23] MEDS: APIXABAN 2.5 MG TABLET PO SCH ×2 (09:43→21:57)
[2023-06-23] MEDS: TIOTROPIUM BROMIDE 2.5 MCG (SPIRIVA) RESPIMAT INHALER IH SCH (09:43)
[2023-06-23 09:52] LABS: BLOOD UREA NITROGEN 8.6 mg/dL (7-18); CALCIUM 8.5 mg/dL (8.5-10.1)
[2023-06-23 09:53] LABS: MAGNESIUM 1.9 mg/dL (1.8-2.4)
[2023-06-23 09:54] LABS: PHOSPHOROUS 2.6 mg/dL (2.5-4.9)
[2023-06-23 09:55] LABS: ALBUMIN 3.1 g/dl (3.4-5.0)
[2023-06-23 10:16] LABS: ANISOCYTOSIS 0; HELMET CELLS 0; HOWELL-JOLLY BODIES 0; MACROCYTOSIS 0; OVALOCYTE 0; ROULEAU 0; SICKELED CELLS 0; TARGET CELLS 0; TEAR DROP CELLS 0; TOXIC GRANULATION 0
[2023-06-23 11:07] LABS: ALLENS TEST POSITIVE; ARTERIAL BLOOD GAS BASE EXCESS 2.1 mmol/L (-2-2); ARTERIAL BLOOD GAS PO2 85.2 mmHg (80-100); ARTERIAL BLOOD GAS pH 7.471 (7.350-7.450)
[2023-06-23] MEDS: METOPROLOL TARTRATE 25 MG TABLET (FP) PO SCH (17:21)
[2023-06-23] MEDS ORDERED: MELATONIN 5 MG TABLETS PO ONE ×2 (19:08→22:00)
[2023-06-23] MEDS: ATORVASTATIN CA 20 MG TABLET (FP) PO SCH (21:57)
[2023-06-23] MEDS ORDERED: HALOPERIDOL 1 MG TABLET PO ONE (23:38)
[2023-06-23] MEDS ORDERED: HALOPERIDOL LACTATE 5 MG/ML IM ONE (23:59)
[2023-06-24] MEDS: METOPROLOL TARTRATE 25 MG TABLET (FP) PO SCH ×3 (00:16→13:11)
[2023-06-24 08:13] LABS: POTASSIUM 3.7 mmol/L (3.5-5.1)
[2023-06-24 08:27] LABS: HEMATOCRIT 34.5 % (32.4-45.2); HEMOGLOBIN 11.3 GM/dL (10.7-15.3); MCHC 32.7 g/dl (32.0-36.0); MEAN CELL VOLUME 94.8 fl (80-96); MEAN PLT VOLUME 8.4 fl (7.5-11.1); PLATELET COUNT 251 10^3/uL (134-434); RBC 3.64 M/mm3 (3.60-5.2); WHITE BLOOD COUNT 6.3 K/mm3 (4.0-10.0)
[2023-06-24 08:30] LABS: ALBUMIN 3.6 g/dl (3.4-5.0)
[2023-06-24 08:31] LABS: BILIRUBIN,TOTAL 0.9 mg/dL (0.2-1)
[2023-06-24 08:32] LABS: BLOOD UREA NITROGEN 11.9 mg/dL (7-18); CALCIUM 8.6 mg/dL (8.5-10.1); CREATININE 0.7 mg/dL (0.55-1.3); MAGNESIUM 1.9 mg/dL (1.8-2.4)
[2023-06-24 08:34] LABS: TOT PROT 6.4 g/dl (6.4-8.2)
[2023-06-24 08:36] LABS: PHOSPHOROUS 2.4 mg/dL (2.5-4.9)
[2023-06-24] MEDS ORDERED: REMDESIVIR 100 MG in SODIUM CHLORIDE 250 ML IVPB SCH (10:00)
[2023-06-24] MEDS: ALBUTEROL SO4 HFA INHALER IH SCH ×4 (10:34→20:00)
[2023-06-24] MEDS: PANTOPRAZOLE 40 MG TABLET PO SCH (10:35)
[2023-06-24] MEDS: LOSARTAN POTASSIUM 25 MG TABLET PO SCH (10:35)
[2023-06-24] MEDS: APIXABAN 2.5 MG TABLET PO SCH ×2 (10:35→22:54)
[2023-06-24] MEDS: REMDESIVIR 100 MG in SODIUM CHLORIDE 250 ML IVPB SCH (10:35)
[2023-06-24] MEDS: FAMOTIDINE 20 MG TABLET PO SCH (10:35)
[2023-06-24] MEDS: TIOTROPIUM BROMIDE 2.5 MCG (SPIRIVA) RESPIMAT INHALER IH SCH (10:36)
[2023-06-24] MEDS ORDERED: METOPROLOL TARTRATE 25 MG TABLET (FP) PO SCH (12:00)
[2023-06-24] MEDS ORDERED: NAPH,MB-DB/K PH,MBDB POWDER PACKET PO ONE (13:45)
[2023-06-24] MEDS ORDERED: MAGNESIUM SULF 50% (8.12 MEQ/2 ML-1 GM VIAL) IVPB ONE (15:48)
[2023-06-24] MEDS: ATORVASTATIN CA 20 MG TABLET (FP) PO SCH (22:53)
[2023-06-25] MEDS ORDERED: LORazepam 0.5 MG TABLET PO ONE (00:20)
[2023-06-25 08:30] LABS: HEMATOCRIT 36.2 % (32.4-45.2); MCH 31.6 pg (25.7-33.7); MCHC 33.2 g/dl (32.0-36.0); MEAN PLT VOLUME 8.3 fl (7.5-11.1); PLATELET COUNT 253 10^3/uL (134-434); RBC 3.81 M/mm3 (3.60-5.2); RDW 13.3 % (11.6-15.6); WHITE BLOOD COUNT 6.1 K/mm3 (4.0-10.0)
[2023-06-25 08:49] LABS: POTASSIUM 3.6 mmol/L (3.5-5.1)
[2023-06-25 08:55] LABS: BLOOD UREA NITROGEN 13.9 mg/dL (7-18)
[2023-06-25 08:56] LABS: ALBUMIN 3.3 g/dl (3.4-5.0); MAGNESIUM 1.9 mg/dL (1.8-2.4)
[2023-06-25 08:57] LABS: PHOSPHOROUS 3.4 mg/dL (2.5-4.9)
[2023-06-25] MEDS: ALBUTEROL SO4 HFA INHALER IH SCH ×4 (08:58→22:48)
[2023-06-25 08:59] LABS: BILIRUBIN,TOTAL 0.9 mg/dL (0.2-1); CREATININE 0.7 mg/dL (0.55-1.3); TOT PROT 6.3 g/dl (6.4-8.2)
[2023-06-25] MEDS: FAMOTIDINE 20 MG TABLET PO SCH (10:55)
[2023-06-25] MEDS: SERTRALINE HCL 25 MG TABLET (FP) PO SCH (10:55)
[2023-06-25] MEDS: APIXABAN 2.5 MG TABLET PO SCH ×2 (10:56→22:45)
[2023-06-25] MEDS: REMDESIVIR 100 MG in SODIUM CHLORIDE 250 ML IVPB SCH (10:56)
[2023-06-25] MEDS: LOSARTAN POTASSIUM 25 MG TABLET PO SCH (10:56)
[2023-06-25] MEDS: PANTOPRAZOLE 40 MG TABLET PO SCH (10:56)
[2023-06-25] MEDS: TIOTROPIUM BROMIDE 2.5 MCG (SPIRIVA) RESPIMAT INHALER IH SCH (10:56)
[2023-06-25] MEDS: ATORVASTATIN CA 20 MG TABLET (FP) PO SCH (22:45)
[2023-06-26] MEDS: ALBUTEROL SO4 HFA INHALER IH SCH ×4 (08:22→21:23)
[2023-06-26 08:32] LABS: POTASSIUM 3.4 mmol/L (3.5-5.1)
[2023-06-26 08:34] LABS: ALBUMIN 3.3 g/dl (3.4-5.0); CALCIUM 8.4 mg/dL (8.5-10.1)
[2023-06-26 08:35] LABS: BLOOD UREA NITROGEN 9.3 mg/dL (7-18); HEMOGLOBIN 12.4 GM/dL (10.7-15.3); MAGNESIUM 1.6 mg/dL (1.8-2.4); MCH 31.6 pg (25.7-33.7); MCHC 33.4 g/dl (32.0-36.0); MEAN CELL VOLUME 94.5 fl (80-96); MEAN PLT VOLUME 8.1 fl (7.5-11.1); PLATELET COUNT 259 10^3/uL (134-434); RBC 3.92 M/mm3 (3.60-5.2); RDW 13.1 % (11.6-15.6); WHITE BLOOD COUNT 5.9 K/mm3 (4.0-10.0)
[2023-06-26 08:37] LABS: CREATININE 0.5 mg/dL (0.55-1.3)
[2023-06-26 08:38] LABS: PHOSPHOROUS 3.2 mg/dL (2.5-4.9)
[2023-06-26 08:39] LABS: BILIRUBIN,TOTAL 0.8 mg/dL (0.2-1); TOT PROT 6.1 g/dl (6.4-8.2)
[2023-06-26] MEDS: REMDESIVIR 100 MG in SODIUM CHLORIDE 250 ML IVPB SCH (10:01)
[2023-06-26] MEDS: metoPROLOL SUCCINATE 25 MG TAB.SR.24H (FP) PO SCH ×2 (10:01→21:14)
[2023-06-26] MEDS: PANTOPRAZOLE 40 MG TABLET PO SCH (10:02)
[2023-06-26] MEDS: LOSARTAN POTASSIUM 25 MG TABLET PO SCH (10:02)
[2023-06-26] MEDS: FAMOTIDINE 20 MG TABLET PO SCH (10:02)
[2023-06-26] MEDS: APIXABAN 2.5 MG TABLET PO SCH ×2 (10:02→21:14)
[2023-06-26] MEDS: TIOTROPIUM BROMIDE 2.5 MCG (SPIRIVA) RESPIMAT INHALER IH SCH (10:06)
[2023-06-26] MEDS ORDERED: POTASSIUM CHLORIDE TABS 20 MEQ TABLET.ER (FP) PO ONE (13:15)
[2023-06-26] MEDS ORDERED: MAGNESIUM 2GM/50ML STERILE WATER IVPB IVPB ONE (13:15)
[2023-06-26] MEDS ORDERED: hydrOXYzine PAMOATE 25 MG CAPSULE (FP) PO PRN (19:48)
[2023-06-26] MEDS: ATORVASTATIN CA 20 MG TABLET (FP) PO SCH (21:14)
[2023-06-27] MEDS: ALBUTEROL SO4 HFA INHALER IH SCH ×2 (08:19→12:42)
[2023-06-27 08:59] LABS: HEMATOCRIT 35.2 % (32.4-45.2); HEMOGLOBIN 12.2 GM/dL (10.7-15.3); MCH 32.1 pg (25.7-33.7); MCHC 34.6 g/dl (32.0-36.0); MEAN CELL VOLUME 92.7 fl (80-96); MEAN PLT VOLUME 7.6 fl (7.5-11.1); PLATELET COUNT 273 10^3/uL (134-434); RDW 13.2 % (11.6-15.6)
[2023-06-27 09:05] LABS: POTASSIUM 3.5 mmol/L (3.5-5.1)
[2023-06-27 09:21] LABS: TOT PROT 6.5 g/dl (6.4-8.2)
[2023-06-27 09:23] LABS: CREATININE 0.6 mg/dL (0.55-1.3)
[2023-06-27 09:24] LABS: ALBUMIN 3.6 g/dl (3.4-5.0); BLOOD UREA NITROGEN 13.2 mg/dL (7-18)
[2023-06-27 09:28] LABS: CALCIUM 8.9 mg/dL (8.5-10.1)
[2023-06-27] MEDS: LOSARTAN POTASSIUM 25 MG TABLET PO SCH (11:08)
[2023-06-27] MEDS: TIOTROPIUM BROMIDE 2.5 MCG (SPIRIVA) RESPIMAT INHALER IH SCH (11:08)
[2023-06-27] MEDS: PANTOPRAZOLE 40 MG TABLET PO SCH (11:09)
[2023-06-27] MEDS: metoPROLOL SUCCINATE 25 MG TAB.SR.24H (FP) PO SCH (11:09)
[2023-06-27] MEDS: FAMOTIDINE 20 MG TABLET PO SCH (11:09)
[2023-06-27] MEDS: APIXABAN 2.5 MG TABLET PO SCH (11:09)
[2023-06-27] MEDS: SERTRALINE HCL 25 MG TABLET (FP) PO SCH (11:10)
[2023-06-27 14:08] VITALS: RESP 18
[2023-06-27 15:03] VITALS: BP 137/91; PULSE 91; TEMP 97.6
== END 2023-06-27 15:10 | DRG 177 ==
LOC: FER 12:48 → J4S 06-23 02:44
PROVIDERS: ADMIT Internal Medicine; ATTEND Internal Medicine
PROC: XW033E5 Introduction of Remdesivir Anti-infective into Peripheral Vein, Percutaneous Approach, New Technology Group 5 (ICD-10-PCS; principal; 2023-06-23)
DX: U07.1 COVID-19 (principal); I21.A1 Myocardial infarction type 2; I48.20 Chronic atrial fibrillation, unspecified; I25.10 Atherosclerotic heart disease of native coronary artery without angina pectoris; J44.9 Chronic obstructive pulmonary disease, unspecified; Z79.01 Long term (current) use of anticoagulants; K21.9 Gastro-esophageal reflux disease without esophagitis; M10.9 Gout, unspecified; F03.90 Unspecified dementia, unspecified severity, without behavioral disturbance, psychotic disturbance, mood disturbance, and anxiety; E83.42 Hypomagnesemia; R07.89 Other chest pain; T46.0X5A Adverse effect of cardiac-stimulant glycosides and drugs of similar action, initial encounter
CPT/HCPCS: 0241U-QW; 36415; 36600; 70450-TC; 71045-TC-FY; 80053; 80162; 81003; 81015; 82803; 83735; 84100; 84439; 84443; 84484; 85025; 85027; 85610; 85730; 86140; 86850; 86900; 86901; 87040; 87086; 93005; 94761; 97116-GP; 97161-GP; 99291; C9399; J1162

== ENCOUNTER 2023-12-10 17:39 | Inpatient (IN) | payer OTHER, MEDICARE ==
[2023-12-10] MEDS: SODIUM CHLORIDE 0.9% 500 ML INFUS.BAG IV ONE (18:59)
[2023-12-10] MEDS ORDERED: ALBUTEROL SO4 2.5/IPRATROPIUM 0.5 INH SOL 3 ML VIAL.NEB. NEB ONE (19:00)
[2023-12-10] MEDS ORDERED: METOPROLOL TARTRATE 5 MG/5 ML VIAL ONE ×2 (19:00→20:29)
[2023-12-10 19:05] LABS: HEMATOCRIT 37.2 % (32.4-45.2); HEMOGLOBIN 12.3 G/dL (10.7-15.3); MCH 32.4 pg (25.7-33.7); MCHC 33.1 g/dl (32.0-36.0); MEAN CELL VOLUME 97.9 fl (80-96); MEAN PLT VOLUME 8.1 fl (7.5-11.1); PLATELET COUNT 248.4 10^3/uL (134-434); RDW 14.2 % (11.6-15.6); WHITE BLOOD COUNT 18.3 10^3/uL (4.0-10.8)
[2023-12-10] MEDS: METOPROLOL TARTRATE 5 MG/5 ML VIAL IVPUSH ONE ×3 (19:09→21:59)
[2023-12-10] MEDS: ALBUTEROL SO4 2.5/IPRATROPIUM 0.5 INH SOL 3 ML VIAL.NEB. NEB SCH (19:16)
[2023-12-10 19:19] LABS: ALBUMIN 3.9 g/dl (3.4-5.0); BILIRUBIN,TOTAL 2.3 mg/dl (0.2-1); CALCIUM 9.2 mg/dl (8.5-10.1); CREATININE 0.6 mg/dl (0.6-1.3); POTASSIUM 3.9 mmol/L (3.5-5.1); TOT PROT 6.3 g/dl (6.4-8.2)
[2023-12-10 19:44] LABS: PLATELET ESTIMATE ADEQUATE
[2023-12-10] MEDS ORDERED: cefTRIAXone SODIUM 1 GM VIAL ONE (20:27)
[2023-12-10] MEDS ORDERED: AZITHROMYCIN 500 MG VIAL IVPB ONE (20:27)
[2023-12-10 20:33] LABS: VENOUS BASE EXCESS -1.5 mmol/L (-2-2); VENOUS O2 SATURATION 48.5 % (70-80); VENOUS PCO2 39.4 mmHg (38-52); VENOUS PH 7.389 (7.310-7.410)
[2023-12-10 20:42] LABS: N-TERMINAL BNP 4472.8 pg/ml (5-450)
[2023-12-10] MEDS: CEFTRIAXONE 1,000 MG in DEXTROSE 5%-WATER - 50 ML IVPB ONE (20:57)
[2023-12-10] MEDS ORDERED: METOPROLOL TARTRATE 50 MG TABLET (FP) ONE (21:13)
[2023-12-10] MEDS: METOPROLOL TARTRATE 50 MG TABLET (FP) PO ONE (21:15)
[2023-12-10] MEDS: AZITHROMYCIN IVPB 500 MG in DEXTROSE 5%-WATER - 250 ML IVPB ONE (21:26)
[2023-12-10] MEDS ORDERED: DOCUSATE SODIUM 100 MG CAPSULE (FP) PO PRN (23:50)
[2023-12-11 03:23] LABS: PH,URINE 5.5 (5.0-8.0); URINE APPEARANCE CLEAR; URINE BILIRUBIN NEGATIVE (NEGATIVE); URINE COLOR YELLOW; URINE GLUCOSE (UA) NEGATIVE (NEGATIVE); URINE KETONE TRACE (NEGATIVE); URINE LEUK ESTERASE NEGATIVE (NEGATIVE); URINE NITRITE NEGATIVE (NEGATIVE); URINE PROTEIN TRACE (NEGATIVE); URINE UROBILINOGEN 0.2 mg/dL (0.2-1.0)
[2023-12-11] MEDS: LACTATED RINGERS SOLUTION 1,000 ML/1,000 ML INFUS.BAG IV SCH (08:09)
[2023-12-11 08:19] LABS: INR 1.5 (0.83-1.09); PROTHROMBIN TIME (PATIENT) 17.3 SEC (9.7-13.0)
[2023-12-11 08:21] LABS: ACTIVATED PTT 34.1 SECONDS (25.2-36.5)
[2023-12-11] MEDS: CEFTRIAXONE 1 GM in DEXTROSE 5%-WATER - 50 ML IVPB SCH (09:08)
[2023-12-11] MEDS: SERTRALINE HCL 50 MG TABLET (FP) PO SCH (09:08)
[2023-12-11] MEDS: AZITHROMYCIN IVPB 500 MG/250 ML BAG IVPB SCH (09:08)
[2023-12-11] MEDS: APIXABAN 2.5 MG TABLET PO SCH (09:09)
[2023-12-11 09:14] LABS: BASO % 0.3 % (0-2.0); EOS % 0.6 % (0-4.5); HEMATOCRIT 34.5 % (32.4-45.2); HEMOGLOBIN 11.2 GM/dL (10.7-15.3); LYMPH % 6.7 % (8-40); MCH 31.7 pg (25.7-33.7); MCHC 32.5 g/dl (32.0-36.0); MEAN CELL VOLUME 97.5 fl (80-96); MEAN PLT VOLUME 7.9 fl (7.5-11.1); MONO % 9.3 % (3.8-10.2); NEUT % 83.1 % (42.8-82.8); PLATELET COUNT 239 10^3/uL (134-434); RBC 3.53 M/mm3 (3.60-5.2); RDW 14.4 % (11.6-15.6); WHITE BLOOD COUNT 14.5 K/mm3 (4.0-10.0)
[2023-12-11] MEDS: TIOTROPIUM BROMIDE 2.5 MCG (SPIRIVA) RESPIMAT INHALER IH SCH (09:24)
[2023-12-11 10:41] LABS: BLOOD UREA NITROGEN 11.8 mg/dL (7-18); CALCIUM 8.6 mg/dL (8.5-10.1)
[2023-12-11 10:43] LABS: CREATININE 0.5 mg/dL (0.55-1.3); PHOSPHOROUS 2.8 mg/dL (2.5-4.9)
[2023-12-11 10:46] LABS: TOT PROT 5.9 g/dl (6.4-8.2)
[2023-12-11 10:48] LABS: MAGNESIUM 1.8 mg/dL (1.8-2.4)
[2023-12-11] MEDS: DIGOXIN 0.125 MG TABLET PO ONE (18:45)
[2023-12-11] MEDS: ACETAMINOPHEN 325 MG TABLET (FP) PO PRN (18:45)
[2023-12-11] MEDS: LIDOCAINE 5% TOPICAL PATCH TP SCH (18:45)
[2023-12-11] MEDS: LIDOCAINE PATCH REMOVAL MC SCH (21:39)
[2023-12-11] MEDS: MELATONIN 1 MG TABLET PO SCH (21:40)
[2023-12-11] MEDS: ATORVASTATIN CA 20 MG TABLET (FP) PO SCH (21:40)
[2023-12-12 08:15] LABS: HEMATOCRIT 35.1 % (32.4-45.2); HEMOGLOBIN 11.6 G/dL (10.7-15.3); MCH 32.6 pg (25.7-33.7); MCHC 33.2 g/dl (32.0-36.0); MEAN CELL VOLUME 98.4 fl (80-96); MEAN PLT VOLUME 8.1 fl (7.5-11.1); PLATELET COUNT 228.5 10^3/uL (134-434); RBC 3.57 10^6/uL (3.60-5.2); RDW 13.7 % (11.6-15.6); WHITE BLOOD COUNT 9.8 10^3/uL (4.0-10.8)
[2023-12-12 08:56] LABS: ALBUMIN 3.5 g/dl (3.4-5.0); BILIRUBIN,TOTAL 1.4 mg/dl (0.2-1); CALCIUM 9.1 mg/dl (8.5-10.1); CREATININE 0.5 mg/dl (0.6-1.3); MAGNESIUM 1.5 mg/dL (1.8-2.4); PHOSPHOROUS 2.6 (2.5-4.9); POTASSIUM 3.6 mmol/L (3.5-5.1); TOT PROT 5.8 g/dl (6.4-8.2)
[2023-12-12] MEDS: FUROSEMIDE 40 MG/4 ML INJECTABLE VIAL IVPUSH ONE (15:22)
[2023-12-12] MEDS: metoPROLOL SUCCINATE 25 MG TAB.SR.24H (FP) PO ONE (15:22)
[2023-12-12] MEDS: dilTIAZem HCL 50 MG/10 ML - 10 ML VIAL IVPUSH ONE (16:59)
[2023-12-13 11:36] LABS: HEMATOCRIT 38.7 % (32.4-45.2); HEMOGLOBIN 13.1 G/dL (10.7-15.3); MCH 32.9 pg (25.7-33.7); MCHC 33.8 g/dl (32.0-36.0); MEAN CELL VOLUME 97.6 fl (80-96); MEAN PLT VOLUME 7.8 fl (7.5-11.1); PLATELET COUNT 278.2 10^3/uL (134-434); RBC 3.97 10^6/uL (3.60-5.2); RDW 13.8 % (11.6-15.6); WHITE BLOOD COUNT 9.1 10^3/uL (4.0-10.8)
[2023-12-13 11:38] LABS: PLATELET ESTIMATE ADEQUATE
[2023-12-13 11:47] LABS: CALCIUM 9.4 mg/dl (8.5-10.1); CREATININE 0.5 mg/dl (0.6-1.3); MAGNESIUM 1.5 mg/dL (1.8-2.4); POTASSIUM 3.6 mmol/L (3.5-5.1)
[2023-12-13] MEDS: FAMOTIDINE 10 MG TABLET PO SCH (12:07)
[2023-12-13] MEDS: FUROSEMIDE 20 MG TABLET (FP) PO SCH (12:07)
[2023-12-13] MEDS: POTASSIUM CHLORIDE TABS 20 MEQ TABLET.ER (FP) PO ONE (14:59)
[2023-12-13] MEDS: MAGNESIUM SULF 50% (8.12 MEQ/2 ML-1 GM VIAL) IVPB ONE (15:00)
[2023-12-13] MEDS: DIGOXIN 0.125 MG TABLET PO SCH (15:00)
[2023-12-13] MEDS: LIDOCAINE PATCH REMOVAL MC SCH (21:07)
[2023-12-14 09:19] LABS: HEMOGLOBIN 11.8 G/dL (10.7-15.3); MCH 32.2 pg (25.7-33.7); MCHC 32.8 g/dl (32.0-36.0); MEAN CELL VOLUME 98.4 fl (80-96); MEAN PLT VOLUME 8.1 fl (7.5-11.1); PLATELET COUNT 286.2 10^3/uL (134-434); RBC 3.66 10^6/uL (3.60-5.2); RDW 13.7 % (11.6-15.6); WHITE BLOOD COUNT 9.7 10^3/uL (4.0-10.8)
[2023-12-14 09:55] LABS: CREATININE 0.5 mg/dl (0.6-1.3); POTASSIUM 3.9 mmol/L (3.5-5.1)
[2023-12-14 11:11] LABS: MAGNESIUM 1.5 mg/dL (1.8-2.4)
[2023-12-15 08:55] LABS: ALBUMIN 3.5 g/dl (3.4-5.0); BILIRUBIN,TOTAL 1.3 mg/dl (0.2-1); CALCIUM 9.1 mg/dl (8.5-10.1); CREATININE 0.6 mg/dl (0.6-1.3); POTASSIUM 3.7 mmol/L (3.5-5.1); TOT PROT 6.1 g/dl (6.4-8.2)
[2023-12-15] MEDS: DIGOXIN 0.125 MG TABLET PO SCH (09:46)
[2023-12-15] MEDS ORDERED: DIGOXIN 0.25 MG TABLET PO SCH (10:00)
[2023-12-15 11:05] LABS: BASO % 0.4 % (0-2.0); EOS % 2.4 % (0-4.5); HEMATOCRIT 35.6 % (32.4-45.2); HEMOGLOBIN 12.3 GM/dL (10.7-15.3); LYMPH % 9.3 % (8-40); MCH 32.7 pg (25.7-33.7); MCHC 34.4 g/dl (32.0-36.0); MEAN CELL VOLUME 95.1 fl (80-96); MEAN PLT VOLUME 7.8 fl (7.5-11.1); MONO % 14.8 % (3.8-10.2); NEUT % 73.1 % (42.8-82.8); PLATELET COUNT 315 10^3/uL (134-434); RBC 3.75 M/mm3 (3.60-5.2); RDW 13.9 % (11.6-15.6)
[2023-12-15 15:07] VITALS: BMI 19.2
[2023-12-16 12:25] LABS: HEMATOCRIT 35.2 % (32.4-45.2); HEMOGLOBIN 12.1 G/dL (10.7-15.3); MCH 33.5 pg (25.7-33.7); MCHC 34.2 g/dl (32.0-36.0); MEAN CELL VOLUME 97.8 fl (80-96); MEAN PLT VOLUME 8.1 fl (7.5-11.1); PLATELET COUNT 315.8 10^3/uL (134-434); RDW 14.3 % (11.6-15.6); WHITE BLOOD COUNT 9.2 10^3/uL (4.0-10.8)
[2023-12-16 12:36] LABS: ALBUMIN 3.7 g/dl (3.4-5.0); BILIRUBIN,TOTAL 0.7 mg/dl (0.2-1); CALCIUM 9.3 mg/dl (8.5-10.1); CREATININE 0.5 mg/dl (0.6-1.3); MAGNESIUM 1.7 mg/dL (1.8-2.4); PHOSPHOROUS 3.1 (2.5-4.9); POTASSIUM 4.1 mmol/L (3.5-5.1); TOT PROT 6.3 g/dl (6.4-8.2)
[2023-12-16 13:12] LABS: PLATELET ESTIMATE ADEQUATE
[2023-12-16 21:02] VITALS: RESP 18
[2023-12-17 07:24] LABS: BASO % 1.1 % (0-2.0); EOS % 4.8 % (0-4.5); HEMATOCRIT 35.6 % (32.4-45.2); HEMOGLOBIN 11.8 GM/dL (10.7-15.3); LYMPH % 19.5 % (8-40); MCH 31.8 pg (25.7-33.7); MCHC 33.2 g/dl (32.0-36.0); MEAN CELL VOLUME 95.7 fl (80-96); MEAN PLT VOLUME 7.6 fl (7.5-11.1); MONO % 15.2 % (3.8-10.2); NEUT % 59.4 % (42.8-82.8); PLATELET COUNT 354 10^3/uL (134-434); RBC 3.73 M/mm3 (3.60-5.2); RDW 13.7 % (11.6-15.6); WHITE BLOOD COUNT 7.4 K/mm3 (4.0-10.0)
[2023-12-17 08:27] LABS: ALBUMIN 2.8 g/dl (3.4-5.0); BILIRUBIN,TOTAL 0.6 mg/dL (0.2-1); BLOOD UREA NITROGEN 13.4 mg/dL (7-18); CALCIUM 9.8 mg/dL (8.5-10.1); CREATININE 0.5 mg/dL (0.55-1.3); POTASSIUM 4.1 mmol/L (3.5-5.1); TOT PROT 6.1 g/dl (6.4-8.2)
[2023-12-17 10:31] LABS: MAGNESIUM 1.6 mg/dL (1.8-2.4)
[2023-12-17] MEDS: MAGNESIUM SULFATE IN WATER 2 GM/50 ML IVPB IVPB ONE (11:59)
[2023-12-17 15:42] VITALS: BP 124/72; PULSE 98; TEMP 97.6
== END 2023-12-17 16:21 | disposition home or self-care (01) | DRG 871 ==
LOC: FER 17:39 → FM/S 23:55 → J4S 12-16 18:45
PROVIDERS: ADMIT Internal Medicine
DX: A41.9 Sepsis, unspecified organism (principal); G93.41 Metabolic encephalopathy; J18.9 Pneumonia, unspecified organism; I48.20 Chronic atrial fibrillation, unspecified; I25.10 Atherosclerotic heart disease of native coronary artery without angina pectoris; E78.5 Hyperlipidemia, unspecified; J44.9 Chronic obstructive pulmonary disease, unspecified; K21.9 Gastro-esophageal reflux disease without esophagitis; M10.9 Gout, unspecified; Z79.01 Long term (current) use of anticoagulants; E86.0 Dehydration; I12.9 Hypertensive chronic kidney disease with stage 1 through stage 4 chronic kidney disease, or unspecified chronic kidney disease; N18.9 Chronic kidney disease, unspecified; M25.511 Pain in right shoulder
CPT/HCPCS: 0241U-QW; 36415; 70450-TC; 71045-TC-FY; 73030-TC-RT-FY; 80048; 80053; 80162; 81003; 82803; 83735; 83880; 84100; 84439; 84443; 84484; 85025; 85027; 85610; 85730; 87086; 93005; 97116-GP; 97162-GP; 99285-25

== ENCOUNTER 2024-09-30 16:12 | Inpatient (IN) | payer OTHER, MEDICARE ==
[2024-09-30 16:54] LABS: HEMATOCRIT 38.8 % (32.4-45.2); HEMOGLOBIN 12.8 G/dL (10.7-15.3); MCH 31.4 pg (25.7-33.7); MEAN CELL VOLUME 95.1 fl (80-96); MEAN PLT VOLUME 8.3 fl (7.5-11.1); PLATELET COUNT 419.2 10^3/uL (134-434); RBC 4.08 10^6/uL (3.60-5.2); RDW 13.8 % (11.6-15.6)
[2024-09-30 17:14] LABS: ALBUMIN 3.9 g/dl (3.4-5.0); BILIRUBIN,TOTAL 1.4 mg/dl (0.2-1); CALCIUM 9.7 mg/dl (8.5-10.1); CREATININE 0.6 mg/dl (0.6-1.3); MAGNESIUM 1.6 mg/dL (1.8-2.4); POTASSIUM 3.8 mmol/L (3.5-5.1); TOT PROT 6.8 g/dl (6.4-8.2)
[2024-09-30 17:21] LABS: PLATELET ESTIMATE SLT INCREASE
[2024-09-30] MEDS ORDERED: AZITHROMYCIN 500 MG TABLET ONE (18:04)
[2024-09-30] MEDS ORDERED: cefTRIAXone SODIUM 1 GM VIAL ONE (18:05)
[2024-09-30] MEDS: AZITHROMYCIN 250 MG TABLET PO ONE (18:14)
[2024-09-30] MEDS: CEFTRIAXONE 1,000 MG in DEXTROSE 5%-WATER - 50 ML IVPB ONE (18:14)
[2024-09-30] MEDS ORDERED: DOCUSATE SODIUM 100 MG CAPSULE (FP) PO PRN (20:16)
[2024-09-30] MEDS: SODIUM CHLORIDE 1,000 ML IV ONE (20:26)
[2024-09-30 21:29] LABS: EPITHELIAL CELLS 0-5 /hpf
[2024-10-01] MEDS ORDERED: GABAPENTIN 100 MG CAPSULE PO PRN (06:31)
[2024-10-01 07:23] LABS: INR 1.47 (0.83-1.09); PROTHROMBIN TIME (PATIENT) 16.6 SEC (9.7-13.0)
[2024-10-01 07:26] LABS: ACTIVATED PTT 35.9 SECONDS (25.2-36.5)
[2024-10-01 07:37] LABS: HEMATOCRIT 35.7 % (32.4-45.2); HEMOGLOBIN 11.6 G/dL (10.7-15.3); MCH 31.2 pg (25.7-33.7); MCHC 32.4 g/dl (32.0-36.0); MEAN CELL VOLUME 96.2 fl (80-96); MEAN PLT VOLUME 8.4 fl (7.5-11.1); PLATELET COUNT 401.5 10^3/uL (134-434); RBC 3.71 10^6/uL (3.60-5.2); RDW 13.7 % (11.6-15.6); WHITE BLOOD COUNT 21.5 10^3/uL (4.0-10.8)
[2024-10-01 07:59] LABS: CREATININE 0.5 mg/dl (0.6-1.3); MAGNESIUM 1.6 mg/dL (1.8-2.4); PHOSPHOROUS 3.5 (2.5-4.9); POTASSIUM 3.7 mmol/L (3.5-5.1)
[2024-10-01] MEDS ORDERED: MAGNESIUM SULF 50% (8.12 MEQ/2 ML-1 GM VIAL) IVPB ONE (08:22)
[2024-10-01] MEDS: APIXABAN 2.5 MG TABLET PO SCH (10:10)
[2024-10-01] MEDS: PANTOPRAZOLE 20 MG TABLET PO SCH (10:10)
[2024-10-01] MEDS: SERTRALINE HCL 50 MG TABLET (FP) PO SCH (10:10)
[2024-10-01] MEDS: MAGNESIUM SULFATE IN WATER 2 GM/50 ML IVPB IVPB ONE (10:11)
[2024-10-01] MEDS: TIOTROPIUM BROMIDE 2.5 MCG (SPIRIVA) RESPIMAT INHALER IH SCH (10:12)
[2024-10-01] MEDS ORDERED: ERTAPENEM SODIUM 0.5 GM in SODIUM CHLORIDE 50 ML IVPB SCH (13:15)
[2024-10-01] MEDS: ERTAPENEM SODIUM 0.5 GM in SODIUM CHLORIDE 50 ML IVPB SCH (13:36)
[2024-10-01] MEDS ORDERED: LEVALBUTEROL HCL 0.31 MG/3 ML VIAL.NEB IH SCH (14:00)
[2024-10-01] MEDS ORDERED: CEFTRIAXONE 1 GM in CEFTRIAXONE 1 G/50 ML PREMIX 50 ML IVPB SCH (18:00)
[2024-10-01] MEDS: AZITHROMYCIN IVPB 500 MG/250 ML BAG IVPB SCH (18:18)
[2024-10-02 09:35] LABS: CALCIUM 8.6 mg/dl (8.5-10.1); CREATININE 0.5 mg/dl (0.6-1.3); MAGNESIUM 1.8 mg/dL (1.8-2.4); PHOSPHOROUS 2.8 (2.5-4.9)
[2024-10-02 10:24] LABS: HEMATOCRIT 32.7 % (32.4-45.2); HEMOGLOBIN 10.5 GM/dL (10.7-15.3); MCH 30.6 pg (25.7-33.7); MCHC 32.1 g/dl (32.0-36.0); MEAN CELL VOLUME 95.1 fl (80-96); PLATELET COUNT 442 10^3/uL (134-434); RBC 3.44 M/mm3 (3.60-5.2); WHITE BLOOD COUNT 14.1 K/mm3 (4.0-10.0)
[2024-10-02 11:14] LABS: ANISOCYTOSIS 0; HELMET CELLS 0; HOWELL-JOLLY BODIES 0; MACROCYTOSIS 0; OVALOCYTE 0; ROULEAU 0; SICKELED CELLS 0; TARGET CELLS 0; TEAR DROP CELLS 0; TOXIC GRANULATION 0
[2024-10-02] MEDS: PIPERACILLIN/TAZOB 2.25 GM 2.25 GM in DEXTROSE 5%-WATER - 50 ML IVPB SCH (11:37)
[2024-10-02 14:14] VITALS: BMI 16.9
[2024-10-03 09:00] LABS: HEMATOCRIT 36.3 % (32.4-45.2); HEMOGLOBIN 11.8 G/dL (10.7-15.3); MCH 31.3 pg (25.7-33.7); MCHC 32.5 g/dl (32.0-36.0); MEAN CELL VOLUME 96.3 fl (80-96); MEAN PLT VOLUME 8.5 fl (7.5-11.1); PLATELET COUNT 512.6 10^3/uL (134-434); RBC 3.77 10^6/uL (3.60-5.2); WHITE BLOOD COUNT 13.1 10^3/uL (4.0-10.8)
[2024-10-03 09:37] LABS: CALCIUM 9.3 mg/dl (8.5-10.1); CREATININE 0.5 mg/dl (0.6-1.3)
[2024-10-03] MEDS: METOPROLOL SUCCINATE PO SCH (10:07)
[2024-10-03] MEDS: POLYETHYLENE GLYCOL (HEALTHYLAX) 3350 17 GM PACKET PO SCH (10:13)
[2024-10-03] MEDS: ACETAMINOPHEN 325 MG TABLET (FP) PO PRN (12:40)
[2024-10-04 13:48] VITALS: BP 108/77; PULSE 105; RESP 16; TEMP 98
== END 2024-10-04 13:56 | disposition home or self-care (01) | DRG 194 ==
LOC: FER 16:12 → FM/S 18:30 → OBSVTOIN 10-01 16:33
PROVIDERS: ADMIT Internal Medicine; ATTEND Internal Medicine
DX: J18.9 Pneumonia, unspecified organism (principal); N39.0 Urinary tract infection, site not specified; Z68.1 Body mass index [BMI] 19.9 or less, adult; J44.9 Chronic obstructive pulmonary disease, unspecified; E83.42 Hypomagnesemia; I10 Essential (primary) hypertension; R62.7 Adult failure to thrive; K21.9 Gastro-esophageal reflux disease without esophagitis; F03.90 Unspecified dementia, unspecified severity, without behavioral disturbance, psychotic disturbance, mood disturbance, and anxiety; E78.5 Hyperlipidemia, unspecified; I48.91 Unspecified atrial fibrillation; I25.10 Atherosclerotic heart disease of native coronary artery without angina pectoris; D72.829 Elevated white blood cell count, unspecified; Z95.5 Presence of coronary angioplasty implant and graft
CPT/HCPCS: 0241U-QW; 36415; 71045-TC-FY; 80048; 80053; 81003; 81015; 83735; 84100; 85025; 85027; 85610; 85730; 87040; 87086; 87186; 93005; 97116-GP; 97162-GP; 99285-25; G0378